=== PATIENT | female | born 1955 | race Caucasian/White ===

== ENCOUNTER → 2016-10-11 | Outpatient (CLI) | payer OTHER ==
[~2016-10-11] MED LIST: /ESOM40CA OR; AMBI10TA PO; AMIT25TA10 PO; BENA25TA4 PO; BUPIVACAINE HCL 0.25% 30 ML VIAL As Ordered ONE; CALCIUM CITRATE PO; CELE10TA PO; CELE20TA OR; FLECTOR1.3 TOP; IBUP800T OR; ISOVUE-M 300 61% 15ML VIAL (Q9967) As Ordered ONE; LIDOCAINE 1% SDV INJ 30 ML VIAL As Ordered ONE; LYRI75CA OR; MELA; MULT1TAB10 PO; MULTIVIT OR; PERCOCET PO; SENO8.6T9 PO; SLEEP AID OTC OR; SOMA350T OR; SOMA350T PO; TRAM37.5 PO; TRAM50TA2 OR; TRAZ50TA OR; TRIAMCINOLONE ACETONIDE SUSP 40 MG/ML VIAL (J3301) As Ordered ONE; TYLE1TAB5 PO; VALI5TAB OR; VIT D 2000 OR; VITA50003 PO; VITA500T OR; XANA1TAB2 OR; [UNRECOGNIZED DRUG - MIXTURE] TOP; citrical PO; diazePAM 5 MG TAB As Ordered ONE; melatonin PO
--- NOTE | 2016-10-11 18:40 | REP ---
This sacral series: Limited study two views: History: Injection of sacral coccygeal ligament bilateral. 10 seconds of fluoroscopy time is reported. Findings: A sequence of two frontal fluoroscopically obtained into procedural spot radiographs of the sacrum to document needle position and contrast injection associated with injection procedure. Signed by Yannick Eller MD 10/11/2016 07:28 P
--- NOTE | 2016-10-19 01:56 | ECWPNPC ---
PATIENT NAME: MARIMAR JARVIS : 1955 GENDER: FEMALE VISIT DATE: 10/11/2016 DISCHARGE DATE: 10/11/16 1634 VISIT LOCKED DATE TIME: PHYSICIAN: TREY QUINTANILLA RESOURCE: TREY QUINTANILLA REASON FOR APPOINTMENT 1. W/C SACRALCOCCYGEAL INJECTION HISTORY OF PRESENT ILLNESS HISTORY OF PRESENT ILLNESS: PAIN THE PATIENT DESCRIBES THE PAIN... FALL RISK SCREENING: SCREENING :NO FALLS IN THE PAST YEAR CURRENT MEDICATIONS TAKING XANAX 1 MG TABLET 1 TABLET ORALLY TWICE A DAY NEEDED, NOTES: 2016-10-102199 TAKING BENADRYL 25 MG CAPSULE 1-2 CAPSULES ORALLY AT NIGHT, NOTES: 2016-09-24 TAKING CELEXA 40 MG TABLET 1 TABLET ORALLY ONCE A DAY, NOTES: 2016-10-11729 TAKING LORATADINE 10 MG TABLET 1 TABLET ORALLY ONCE A DAY, NOTES: 2016-10-11729 NOT-TAKING MULTI COMPLETE CAPSULE ORALLY DAILY NOT-TAKING VITAMIN B COMPLEX CAPSULE ORALLY DAILY NOT-TAKING TYLENOL 500 MG TABLETS 1 TABLET ORALLY NEEDED NOT-TAKING IBUPROFEN 800 MG TABLET 1 TABLET ORALLY NEEDED NOT-TAKING TRAMADOL HCL 50 MG TABLET 1 TABLET NEEDED ORALLY EVERY 6 HRSPRN PAIN MDD=6 NOT-TAKING PERCOCET 10-325 MG TABLET 2 TABLET NEEDED ORALLY TAKE 2 TABS ON ARRIVAL TO CLINIC FOR PROCEDURE MDD=2 NOT-TAKING VALIUM 5 MG TABLET 2 ORALLY 2 TAB 1HR PRE PROC. MDD2 DO NOT DRIVE AFTER TAKING MEDS MEDICATION LIST REVIEWED AND RECONCILED WITH THE PATIENT PAST MEDICAL HISTORY INSOMNIA BILATERAL FOOT PAIN ANXIETY DEPRESSION POST LAMINECTOMY PAIN ALLERGIES NAPROXEN: ORBITAL PRESSURE: ALLERGY SURGICAL HISTORY LAMINECTOMY 07/16 OR C SECTION C SECTION FAMILY HISTORY FATHER: MOTHER: HAD 1 BROTHER WHO IS NOW. HOSPITALIZATION/MAJOR DIAGNOSTIC PROCEDURE SURGERY 07/16 OR REVIEW OF SYSTEMS CONSTITUTIONAL: ANY CHANGE IN YOUR MEDICAL CONDITION? NO . CHILLS NO . FEVER NO . INFECTION: DO YOU HAVE NEW INFECTIONS? NO . DO YOU HAVE HISTORY OF MRSA? NO . MUSCULOSKELETAL: ANY NEW PATTERNS OF PAIN OR NUMBNESS? NO . GASTROENTEROLOGY: ANY NEW CHANGE IN BOWEL CONTROL? NO . GENITOURINARY: ANY NEW CHANGE IN BLADDER CONTROL? NO . IS THERE A CHANCE YOU COULD BE ? NO . HEMATOLOGY/LYMPH: DO YOU TAKE ANY BLOOD THINNERS? (FOR EXAMPLE- COUMADIN, PLAVIX, AGGRENOX, PLATEL, PRADAXA, OR XARELTO) NO . WHEN WAS YOUR LAST DOSE? DATE: TIME: . NEUROLOGY: HAVE YOU FALLEN IN THE PAST 6 MONTHS? NO . ANY NEW EXTREMITY NUMBNESS OR WEAKNESS? NO . CARDIOLOGY: DO YOU HAVE A PACEMAKER OR DEFIBRILLATOR? NO . RESPIRATORY: HAVE YOU BEEN SICK IN THE PAST WEEK? NO . FEVER NO . FLU LIKE SYMPTOMS? NO . COUGH NO . INTEGUMENTARY: DO YOU HAVE ANY RASHES OR OPEN SORES? NO . ALLERGIC/IMMUNO: ARE YOU ALLERGIC TO SHELLFISH OR IV DYE? NO . ANY NEW ALLERGIES? NO . PSYCHIATRIC: DO YOU HAVE THOUGHTS OF HURTING YOURSELF OR SOMEONE ELSE? NO . ARE YOU ABUSED, NEGLECTED, OR IN AN UNSAFE ENVIRONMENT? NO . ENDOCRINOLOGY: ARE YOU DIABETIC? NO . OTHER: DO YOU NEED ANY PRESCRIPTIONS? NO . IF YES, PLEASE LIST: ____ . ANY NEW PROBLEMS WITH YOUR MEDICATIONS? NO . WHEN DID YOU LAST EAT? 10-10-16 . WHEN DID YOU LAST DRINK? NOON . WHAT DID YOU LAST DRINK? WATER . NAME OF PERSON DRIVING YOU HOME? AL . DO YOU HAVE ANY OTHER QUESTIONS OR CONCERNS NO . REVIEWED BY: PROVIDER: . VITAL SIGNS WT 160 LBS, HT 66 IN, BMI 25.82 INDEX, BP 117/59 MM HG, HR 63 /MIN, RR 16 /MIN, TEMP 96.2 F, OXYGEN SAT % 98, NA INITIALS TL 1416, REVIEWED BY: LS. ASSESSMENTS SPINAL ENTHESOPATHY, SACRAL AND SACROCOCCYGEAL REGION - M46.08 (PRIMARY) PROCEDURES PRE PROCEDURE DIAGNOSIS: INFLAMMATION OF THE SACROCOCCYGEAL LIGAMENT .COCCYDYNIA.POSTPROCEDURE DIAGNOSIS:INFLAMMATION OF THE SACROCOCCYGEAL LIGAMENT .COCCYDYNIA.PROCEDURE: INJECTION OF THE RIGHT AND LEFT SACROCOCCYGEAL LIGAMENT. SURGEON: DR. TREY QUINTANILLASAINT [facility]ADANESTHESIA: LOCAL.PREOPERATIVE NOTE: THE PATIENT HAS HISTORY OF LOW BACK PAIN. I EVALUATED THE PATIENT AND REVIEWED THE CHART. WE BOTH AGREE ON INJECTING OVER THE SACROCOCCYGEAL LIGAMENT. THE PATIENT IS AWARE OF THE POTENTIAL COMPLICATIONS WHICH INCLUDE INFECTIONS, VISCERAL PUNCTURE, INCLUDING RECTAL PUNCTURE AMONG OTHERS. I DISCUSSED ALTERNATIVES AND THE PATIENT EXPRESSED THAT SHE WOULD LIKE TO MOVE FORWARD. THE PATIENT DENIES UNEXPLAINABLE, WEIGHT LOSS, FEVER, CHILLS, OR CHANGES IN URINARY OR BOWEL CONTROL. DESCRIPTION OF PROCEDURE: AFTER CONSENT WAS TAKEN, THE PATIENT WAS BROUGHT TO THE PROCEDURE ROOM AND PLACED IN THE PRONE POSITION. THE LUMBOSACRAL AREA WAS CLEANED WITH CHLORAPREP SOLUTION AND DRAPED ASEPTICALLY. THE PROCEDURE WAS DONE UNDER STERILE CONDITIONS. UNDER FLUOROSCOPIC GUIDANCE, THE TARGET WAS SELECTED AT THE RIGHT AND LEFT SACROCOCCYGEAL LIGAMENT. LIDOCAINE WAS USED TO NUMB THE SKIN AND THE SUBCUTANEOUS TISSUE BELOW IT. A 25 NEEDLE WAS ADVANCED UNTIL WE REACHED THE RIGHT AND LEFT SACROCOCCYGEAL LIGAMENT. I DID AP AND LATERAL VIEWS. ISOVUE M DYE 30%, 1/4 ML, WAS INJECTED SHOWING ADEQUATE SPREAD OF THE DYE. THEN A SOLUTION OF 30 ML OF BUPIVACAINE 0.125% WITH KENALOG 30 MG WAS INJECTED OVER THE AFFECTED STRUCTURE. THERE WAS NO EVIDENCE OF BLOOD, PARESTHESIA OR CEREBROSPINAL FLUID. NO EVIDENCE OF VACUUM PHENOMENON OR VISCERAL PUNCTURE. THE PATIENT WAS SENT TO THE RECOVERY ROOM WHERE SHE WAS MOVING HER EXTREMITIES AND DOING WELL. THERE WERE NO COMPLICATIONS DURING THE PROCEDURE. FLUOROSCOPY TIME WAS 10 SECONDSPOSTOPERATIVE NOTE: I DISCUSSED ALTERNATIVES WITH THE PATIENT. I AM LOOKING FOR LONG LASTING PAIN RELIEF WITH THIS INTERVENTION. INSTRUCTIONS WERE GIVEN. QUESTIONS WERE ANSWERED. THE PATIENT REPORTS UNDERSTANDING AND AGREES WITH THE PLAN. THERE WERE NO COMPLICATIONS DURING THE PROCEDURE. DIAGNOSTIC IMAGING [facility] FLUORO GUIDANCE (PAIN)[id number] PROCEDURE CODES 52899 INJ TENDON SHEATH/LIGAMENT 6045F RADXPS IN END [id number] PXD [id number] FLUOROGUIDE FOR SPINE INJECT FOLLOW UP 3 WEEKS ELECTRONICALLY SIGNED BY TREY QUINTANILLA MD ON 10/18/2016 AT 03:01 PM EST DISCLAIMER : THIS IS A VISIT SUMMARY EXTRACTED FROM THE [employer] CHART. IT IS NOT A COPY OF THE [employer] PROGRESS NOTE. MIKE
== END ==
LOC: M PAIN 14:00
PROVIDERS: ATTEND Anesthesiology
DX: M46.08 Spinal enthesopathy, sacral and sacrococcygeal region (principal); F41.9 Anxiety disorder, unspecified; F32.9 Major depressive disorder, single episode, unspecified; M96.1 Postlaminectomy syndrome, not elsewhere classified; G47.00 Insomnia, unspecified; Z88.8 Allergy status to other drugs, medicaments and biological substances; Z79.899 Other long term (current) drug therapy
CPT/HCPCS: 20550; 77002; J3301; Q9967

== ENCOUNTER → 2016-11-01 | Outpatient (CLI) | payer OTHER ==
[~2016-11-01] MED LIST changes: -BUPIVACAINE HCL 0.25% 30 ML VIAL As Ordered ONE; -ISOVUE-M 300 61% 15ML VIAL (Q9967) As Ordered ONE; -LIDOCAINE 1% SDV INJ 30 ML VIAL As Ordered ONE; -TRIAMCINOLONE ACETONIDE SUSP 40 MG/ML VIAL (J3301) As Ordered ONE; -diazePAM 5 MG TAB As Ordered ONE
--- NOTE | 2016-11-11 00:21 | ECWPNPC ---
PATIENT NAME: MARIMAR JARVIS : 1955 GENDER: FEMALE VISIT DATE: 11/01/2016 DISCHARGE DATE: 11/01/16 1239 VISIT LOCKED DATE TIME: PHYSICIAN: TREY QUINTANILLA RESOURCE: TREY QUINTANILLA REASON FOR APPOINTMENT 1. LOW BACK PAIN W/C HISTORY OF PRESENT ILLNESS HISTORY OF PRESENT ILLNESS: PAIN THE PATIENT DESCRIBES THE PAIN... 61 YEAR OLD FEMALE PATIENT WITH HISTORY OF CHRONIC LOW BACK PAIN. PATIENT DESCRIBES THE PAIN ACHING, STABBING, AND SORE WITH A PAIN SCORE OF 3-4/10. 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 JARVIS. PATIENT RECEIVED A BACK SURGERY 4 YEARS AFTER THE ACCIDENT AND STATES THAT SHE STILL HAS A SIGNIFICANT AMOUNT OF PAIN IN HER BACK. PATIENT STATES THAT SHE DOES NOT WANT TO USE NARCOTICS SHE DOES NOT LIKE THE SIDE EFFECTS OF THE MEDICATIONS. MRS. JARVIS STATES THAT ANY ACTIVITY INCREASES THE PAIN IN HER LOWER BACK AND AT THIS TIME REST IS THE ONLY THING THAT AIDS IN PAIN RELIEF. PATIENT DENIES UNEXPLAINABLE WEIGHT LOSS, FEVER, CHILLS, NEW CHANGES ON HER URINARY OR BOWEL CONTROL. FALL RISK SCREENING: SCREENING :NO FALLS IN THE PAST YEAR CURRENT MEDICATIONS TAKING XANAX 1 MG TABLET 1 TABLET ORALLY TWICE A DAY NEEDED, NOTES: 2016-10-10 2200 TAKING CELEXA 40 MG TABLET 1 TABLET ORALLY TWICE DAILY, NOTES: 2016-10-11729 TAKING LORATADINE 10 MG TABLET 1 TABLET ORALLY ONCE A DAY, NOTES: 2016-10-11729 NOT-TAKING BENADRYL 25 MG CAPSULE 1-2 CAPSULES ORALLY AT NIGHT, NOTES: 2016-09-24 NOT-TAKING MULTI COMPLETE CAPSULE ORALLY DAILY NOT-TAKING VITAMIN B COMPLEX CAPSULE ORALLY DAILY NOT-TAKING TYLENOL 500 MG TABLETS 1 TABLET ORALLY NEEDED NOT-TAKING IBUPROFEN 800 MG TABLET 1 TABLET ORALLY NEEDED NOT-TAKING TRAMADOL HCL 50 MG TABLET 1 TABLET NEEDED ORALLY EVERY 6 HRSPRN PAIN MDD=6 NOT-TAKING PERCOCET 10-325 MG TABLET 2 TABLET NEEDED ORALLY TAKE 2 TABS ON ARRIVAL TO CLINIC FOR PROCEDURE MDD=2 NOT-TAKING VALIUM 5 MG TABLET 2 ORALLY 2 TAB 1HR PRE PROC. MDD2 DO NOT DRIVE AFTER TAKING MEDS MEDICATION LIST REVIEWED AND RECONCILED WITH THE PATIENT PAST MEDICAL HISTORY INSOMNIA BILATERAL FOOT PAIN ANXIETY DEPRESSION POST LAMINECTOMY PAIN ALLERGIES NAPROXEN: ORBITAL PRESSURE: ALLERGY SURGICAL HISTORY LAMINECTOMY 07/16 OR C SECTION C SECTION FAMILY HISTORY NO FAMILY HISTORY DOCUMENTED. SOCIAL HISTORY GENERAL: TOBACCO USE ARE YOU A:NONSMOKER LEARNING BARRIERS / SPECIAL NEEDS ORIENTED TO PLAN OF CARE: PATIENT, PAIN MANAGEMENT PATIENT, ORIENTED TO PLAN OF CARE: PATIENT, PAIN MANAGEMENT PATIENT. NEW PATIENT PAIN DIARY TODAY'S VISITNOTES FROM 0-10, WHAT LEVEL IS YOUR PAIN TODAY?0 PAIN CLINIC PFS, CLERGY, PUBLIC HEALTH REFERRALS PFS REFERRAL NEEDED?NO CLERGY REFERRAL NEEDED?NO PUBLIC HEALTH REFERRAL NEEDED?NO WAS THE PROVIDER NOTIFIED OF ANY PERTINENT INFO?NO PFS REFERRAL NEEDED?NO CLERGY REFERRAL NEEDED?NO PUBLIC HEALTH REFERRAL NEEDED?NO WAS THE PROVIDER NOTIFIED OF ANY PERTINENT INFO?NO HOSPITALIZATION/MAJOR DIAGNOSTIC PROCEDURE SURGERY 07/16 OR REVIEW OF SYSTEMS CONSTITUTIONAL: ANY CHANGE IN YOUR MEDICAL CONDITION? NO . CHILLS NO . FEVER NO . INFECTION: DO YOU HAVE NEW INFECTIONS? NO . DO YOU HAVE HISTORY OF MRSA? NO . MUSCULOSKELETAL: ANY NEW PATTERNS OF PAIN OR NUMBNESS? NO . GASTROENTEROLOGY: ANY NEW CHANGE IN BOWEL CONTROL? NO . GENITOURINARY: ANY NEW CHANGE IN BLADDER CONTROL? NO . IS THERE A CHANCE YOU COULD BE ? NO . HEMATOLOGY/LYMPH: DO YOU TAKE ANY BLOOD THINNERS? (FOR EXAMPLE- COUMADIN, PLAVIX, AGGRENOX, PLATEL, PRADAXA, OR XARELTO) NO . WHEN WAS YOUR LAST DOSE? DATE: TIME: . NEUROLOGY: HAVE YOU FALLEN IN THE PAST 6 MONTHS? NO . ANY NEW EXTREMITY NUMBNESS OR WEAKNESS? NO . CARDIOLOGY: DO YOU HAVE A PACEMAKER OR DEFIBRILLATOR? NO . RESPIRATORY: HAVE YOU BEEN SICK IN THE PAST WEEK? NO . FEVER NO . FLU LIKE SYMPTOMS? NO . COUGH NO . INTEGUMENTARY: DO YOU HAVE ANY RASHES OR OPEN SORES? NO . ALLERGIC/IMMUNO: ARE YOU ALLERGIC TO SHELLFISH OR IV DYE? NO . ANY NEW ALLERGIES? NO . PSYCHIATRIC: DO YOU HAVE THOUGHTS OF HURTING YOURSELF OR SOMEONE ELSE? NO . ARE YOU ABUSED, NEGLECTED, OR IN AN UNSAFE ENVIRONMENT? NO . ENDOCRINOLOGY: ARE YOU DIABETIC? NO . OTHER: DO YOU NEED ANY PRESCRIPTIONS? YES . IF YES, PLEASE LIST: ____A NEW PAIN MEDICATION . ANY NEW PROBLEMS WITH YOUR MEDICATIONS? NO . WHEN DID YOU LAST EAT? ____ . WHEN DID YOU LAST DRINK? ____ . WHAT DID YOU LAST DRINK? ____ . NAME OF PERSON DRIVING YOU HOME? ____ . DO YOU HAVE ANY OTHER QUESTIONS OR CONCERNS NO . REVIEWED BY: PROVIDER: TREY QUINTANILLA MD . VITAL SIGNS WT 156.0 LBS, HT 66 IN, BMI 25.18 INDEX, BP 110/63 MM HG, HR 71 /MIN, RR 16 /MIN, TEMP 97.9 F, OXYGEN SAT % 98, NA INITIALS TL 1114, REVIEWED BY: VD. EXAMINATION : PATIENT IS ALERT O X 3 AND COOPERATIVE. TENDERNESS IN THE LOWER BACK AND PARASPINAL MUSCLE GROUP. LEFT LEG IS WEAKER THEN THE RIGHT AT EXTENSION AND ESPECIALLY FLEXION. PATIENT ABLE TO FLEX HER BACK 45 DEGREE AND 5 DEGREE WITH DIFFICULTY. MRI DONE ON 04/21/15 SHOWS DISC BULGES AT L1-L2, L2-L3, AND L4-L5, DISC PROTRUSION AT L5-S1 WITH FACET HYPERTROPHY. 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 JARVIS' PAIN MANAGEMENT CASE. AT THIS TIME THE PATIENT WILL BEGIN TO USE GABAPENTIN TO SEE IF IT WILL AID WITH THE NEUROPATHIC PAIN. PATIENT IS AWARE TO START AND STOP THE MEDICATION SLOWLY AND IF SHE HAS ANY SIDE EFFECTS TO DISCONTINUE. AT THIS TIME THE PATIENT STATES THAT SHE IS DOING SIGNIFICANTLY BETTER, SHE REPORTS HAVING INCREASED MOBILITY AND FUNCTIONALITY WITH A DECREASE IN PAIN SINCE THE SACROILIAC JOINT BLOCK. AT THIS TIME PATIENT STATES THAT HER PAIN IS VERY MANAGEABLE AND DOES NOT NEED INTERVENTIONS AT THIS TIME. PATIENT WILL RETURN TO THE CLINIC IN 3 WEEKS TO DISCUSS HER PAIN LEVEL AND TO DISCUSS OF THE MEDICATION WORKED FOR THE PATIENT. INSTRUCTIONS WERE GIVEN, QUESTIONS WERE ANSWERED, PATIENT REPORTS UNDERSTANDING AND AGREES WITH THE PLAN. I, ARLEY TAVARES, DOCUMENTED THE ABOVE INFORMATION ACTING A SCRIBE FOR DR. QUINTANILLA. I HAVE REVIEWED THE ABOVE DOCUMENT, WRITTEN BY ARLEY ODOM AND I VERIFY THAT IT IS ACCURATE. OTHERS START GABAPENTIN CAPSULE, 300 MG, 1 CAPSULE, ORALLY, BEFORE BEDTIME FOR PAIN, 30 DAY(S), 30, REFILLS 1 PROCEDURES PN WORKMANS' COMP OPINION IN YOUR OPINION, WAS THE INCIDENT THAT THE PATIENT DESCRIBED THE COMPETENT MEDICAL CAUSE OF THIS INJURY/ILLNESS? YES ARE THE PATIENT'S COMPLAINTS CONSISTENT WITH HIS/HER HISTORY OF THE INJURY/ILLNESS? YES IS THE PATIENT'S HISTORY OF THE INJURY/ILLNESS CONSISTENT WITH YOUR OBJECTIVE FINDING? YES WHAT IS THE PERCENTAGE OF TEMPORARY IMPAIRMENT? TOTAL = 100% IS THE PATIENT WORKING? NO DOCTOR ON SITE: TREY SIERRA MD PROCEDURE CODES FA211 ESTABILISHED PATIENT [facility] FACILITY CHARGE G8427 DOC MEDS VERIFIED W/PT OR RE G8730 PAIN ASSESS POS TOOL F/U PLAN DOC FOLLOW UP 3 WEEKS ELECTRONICALLY SIGNED BY TREY QUINTANILLA MD ON 11/10/2016 AT 08:02 PM EST DISCLAIMER : THIS IS A VISIT SUMMARY EXTRACTED FROM THE [employer] CHART. IT IS NOT A COPY OF THE [employer] PROGRESS NOTE. MIKE
== END ==
LOC: M PAIN 11:00
PROVIDERS: ATTEND Anesthesiology
DX: Z09 Encounter for follow-up examination after completed treatment for conditions other than malignant neoplasm (principal); G89.29 Other chronic pain; M96.1 Postlaminectomy syndrome, not elsewhere classified; M46.1 Sacroiliitis, not elsewhere classified; M47.816 Spondylosis without myelopathy or radiculopathy, lumbar region; M47.817 Spondylosis without myelopathy or radiculopathy, lumbosacral region; F41.9 Anxiety disorder, unspecified; F32.9 Major depressive disorder, single episode, unspecified; G47.00 Insomnia, unspecified; Z88.8 Allergy status to other drugs, medicaments and biological substances; Z79.899 Other long term (current) drug therapy

== ENCOUNTER → 2017-01-15 | Outpatient (CLI) | payer OTHER ==
--- NOTE | 2017-01-28 01:18 | ECWPNPC ---
PATIENT NAME: MARIMAR JARVIS : 1955 GENDER: FEMALE VISIT DATE: 01/15/2017 DISCHARGE DATE: 01/15/17 1555 VISIT LOCKED DATE TIME: PHYSICIAN: TREY QUINTANILLA RESOURCE: TREY QUINTANILLA REASON FOR APPOINTMENT 1. BACK PAIN HISTORY OF PRESENT ILLNESS HISTORY OF PRESENT ILLNESS: PAIN THE PATIENT DESCRIBES THE PAIN... 61 YEAR OLD FEMALE PATIENT WITH HISTORY OF CHRONIC LOW BACK PAIN. PATIENT DESCRIBES THE PAIN ACHING, SHARP, AND HAVING IT ALL THE TIME WITH A PAIN SCORE OF 7-8/10. 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 JARVIS. PATIENT RECEIVED A BACK SURGERY 4 YEARS AFTER THE ACCIDENT AND STATES THAT SHE STILL HAS A SIGNIFICANT AMOUNT OF PAIN IN HER BACK. PATIENT STATES THAT SHE DOES NOT WANT TO USE NARCOTICS SHE DOES NOT LIKE THE SIDE EFFECTS OF THE MEDICATIONS. CURRENTLY PATIENT IS USING GABAPENTIN TO AID IN PAIN RELIEF WHICH SHE STATES HELPS WITH THE NEUROPATHIC PAIN. MRS. JARVIS STATES THAT ANY ACTIVITY INCREASES THE PAIN IN HER LOWER BACK AND AT THIS TIME REST IS THE ONLY THING THAT AIDS IN PAIN RELIEF. PATIENT DENIES UNEXPLAINABLE WEIGHT LOSS, FEVER, CHILLS, NEW CHANGES ON HER URINARY OR BOWEL CONTROL. FALL RISK SCREENING: SCREENING :NO FALLS IN THE PAST YEAR CURRENT MEDICATIONS TAKING CELEXA 40 MG TABLET 1 TABLET ORALLY TWICE DAILY, NOTES: 2016-10-11729 TAKING LORATADINE 10 MG TABLET 1 TABLET ORALLY ONCE A DAY, NOTES: 2016-10-11729 TAKING GABAPENTIN 300 MG CAPSULE 1 CAPSULE ORALLY BEFORE BEDTIME FOR PAIN NOT-TAKING XANAX 1 MG TABLET 1 TABLET ORALLY TWICE A DAY NEEDED, NOTES: 2016-10-102199 NOT-TAKING BENADRYL 25 MG CAPSULE 1-2 CAPSULES ORALLY AT NIGHT, NOTES: 2016-09-24 NOT-TAKING MULTI COMPLETE CAPSULE ORALLY DAILY NOT-TAKING VITAMIN B COMPLEX CAPSULE ORALLY DAILY NOT-TAKING TYLENOL 500 MG TABLETS 1 TABLET ORALLY NEEDED NOT-TAKING IBUPROFEN 800 MG TABLET 1 TABLET ORALLY NEEDED NOT-TAKING TRAMADOL HCL 50 MG TABLET 1 TABLET NEEDED ORALLY EVERY 6 HRSPRN PAIN MDD=6 NOT-TAKING PERCOCET 10-325 MG TABLET 2 TABLET NEEDED ORALLY TAKE 2 TABS ON ARRIVAL TO CLINIC FOR PROCEDURE MDD=2 NOT-TAKING VALIUM 5 MG TABLET 2 ORALLY 2 TAB 1HR PRE PROC. MDD2 DO NOT DRIVE AFTER TAKING MEDS MEDICATION LIST REVIEWED AND RECONCILED WITH THE PATIENT PAST MEDICAL HISTORY INSOMNIA BILATERAL FOOT PAIN ANXIETY DEPRESSION POST LAMINECTOMY PAIN ALLERGIES NAPROXEN: ORBITAL PRESSURE: ALLERGY SURGICAL HISTORY LAMINECTOMY 07/16 OR C SECTION C SECTION FAMILY HISTORY NO FAMILY HISTORY DOCUMENTED. SOCIAL HISTORY GENERAL: PAIN CLINIC PFS, CLERGY, PUBLIC HEALTH REFERRALS CLERGY REFERRAL NEEDED?NO WAS THE PROVIDER NOTIFIED OF ANY PERTINENT INFO?NO PFS REFERRAL NEEDED?NO PUBLIC HEALTH REFERRAL NEEDED?NO PATIENT: ____. HOSPITALIZATION/MAJOR DIAGNOSTIC PROCEDURE SURGERY 07/16 OR REVIEW OF SYSTEMS CONSTITUTIONAL: ANY CHANGE IN YOUR MEDICAL CONDITION? NO . CHILLS NO . FEVER NO . INFECTION: DO YOU HAVE NEW INFECTIONS? NO . DO YOU HAVE HISTORY OF MRSA? NO . MUSCULOSKELETAL: ANY NEW PATTERNS OF PAIN OR NUMBNESS? YES PT REPORTS HER PAIN HAS INCREASED. SHE HAD BEEN SMOKING MARIJUANA FOR PAIN CONTROL WHICH PROVIDED HER SOME RELIEF, BUT STATES SHE CAN NO LONGER AFFORD IT AND HAS STOPPED USING IT. . GASTROENTEROLOGY: ANY NEW CHANGE IN BOWEL CONTROL? NO . GENITOURINARY: ANY NEW CHANGE IN BLADDER CONTROL? NO . IS THERE A CHANCE YOU COULD BE ? NO . HEMATOLOGY/LYMPH: DO YOU TAKE ANY BLOOD THINNERS? (FOR EXAMPLE- COUMADIN, PLAVIX, AGGRENOX, PLATEL, PRADAXA, OR XARELTO) NO . WHEN WAS YOUR LAST DOSE? DATE: TIME: . NEUROLOGY: HAVE YOU FALLEN IN THE PAST 6 MONTHS? NO . ANY NEW EXTREMITY NUMBNESS OR WEAKNESS? NO . CARDIOLOGY: DO YOU HAVE A PACEMAKER OR DEFIBRILLATOR? NO . RESPIRATORY: HAVE YOU BEEN SICK IN THE PAST WEEK? NO . FEVER NO . FLU LIKE SYMPTOMS? NO . COUGH NO . INTEGUMENTARY: DO YOU HAVE ANY RASHES OR OPEN SORES? NO . ALLERGIC/IMMUNO: ARE YOU ALLERGIC TO SHELLFISH OR IV DYE? NO . ANY NEW ALLERGIES? NO . PSYCHIATRIC: DO YOU HAVE THOUGHTS OF HURTING YOURSELF OR SOMEONE ELSE? NO . ARE YOU ABUSED, NEGLECTED, OR IN AN UNSAFE ENVIRONMENT? NO . ENDOCRINOLOGY: ARE YOU DIABETIC? NO . OTHER: DO YOU NEED ANY PRESCRIPTIONS? YES GABAPENTIN . IF YES, PLEASE LIST: ____ . ANY NEW PROBLEMS WITH YOUR MEDICATIONS? NO . WHEN DID YOU LAST EAT? ____ . WHEN DID YOU LAST DRINK? ____ . WHAT DID YOU LAST DRINK? ____ . NAME OF PERSON DRIVING YOU HOME? ____ . DO YOU HAVE ANY OTHER QUESTIONS OR CONCERNS NO . REVIEWED BY: PROVIDER: TREY QUINTANILLA MD . VITAL SIGNS WT 155 LBS, HT 66 IN, BMI 25.01 INDEX, BP 124/76 MM HG, HR 58 /MIN, RR 16 /MIN, TEMP 97.9 F, OXYGEN SAT % 96%, NA INITIALS SC15:20. EXAMINATION : PATIENT IS ALERT O X 3 AND COOPERATIVE. TENDERNESS IN THE LOWER BACK AND PARASPINAL MUSCLE GROUP. LEFT LEG IS WEAKER THEN THE RIGHT AT EXTENSION AND ESPECIALLY FLEXION. FABERE TEST POSITIVE FOR PAIN IN LEFT AND RIGHT SACROILIAC JOINT AREAS. PATIENT ABLE TO FLEX HER BACK 45 DEGREE AND 5 DEGREE WITH DIFFICULTY. MRI DONE ON 04/21/15 SHOWS DISC BULGES AT L1-L2, L2-L3, AND L4-L5, DISC PROTRUSION AT L5-S1 WITH FACET HYPERTROPHY. 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 JARVIS PAIN MANAGEMENT CASE. AT THIS TIME THE PATIENT WILL CONTINUE USING GABAPENTIN FOR THE NEUROPATHIC PAIN SHE HAS DOWN HER LEGS. PATIENT WILL ALSO RECEIVED KETOROLAC UNTIL SHE ABLE TO SEE PRIMARY TO DISCUSS MEDICATION MANAGEMENT. AFTER VIEWING THE PATIENT AND FINDING WHERE HER PAIN IS LOCATED I WOULD LIKE TO PROCEED WITH A SACROILIAC JOINT BLOCK. WE DISCUSSED THE RISKS, BENEFITS, AND ALTERATIVE'S OF THE INJECTION AND THE PATIENT WOULD LIKE TO PROCEED AT THIS TIME. INSTRUCTIONS WERE GIVEN, QUESTIONS WERE ANSWERED, PATIENT REPORTS UNDERSTANDING AND AGREES WITH THE PLAN. I, ARLEY TAVARES, DOCUMENTED THE ABOVE INFORMATION ACTING A SCRIBE FOR DR. QUINTANILLA. I HAVE REVIEWED THE ABOVE DOCUMENT, WRITTEN BY ARLEY ODOM AND I VERIFY THAT IT IS ACCURATE. OTHERS REFILL GABAPENTIN CAPSULE, 300 MG, 1 CAPSULE, ORALLY, BEFORE BEDTIME FOR PAIN, 30 DAY(S), 30, REFILLS 2 START KETOROLAC TROMETHAMINE TABLET, 10 MG, 1 TABLET WITH FOOD OR MILK NEEDED, ORALLY WITH FOOD, EVERY 6 HRS NEEDEDFOR PAIN MDD3, 5 DAY(S), 15, REFILLS 0 PROCEDURES PN WORKMANS' COMP OPINION IN YOUR OPINION, WAS THE INCIDENT THAT THE PATIENT DESCRIBED THE COMPETENT MEDICAL CAUSE OF THIS INJURY/ILLNESS? YES ARE THE PATIENT'S COMPLAINTS CONSISTENT WITH HIS/HER HISTORY OF THE INJURY/ILLNESS? YES IS THE PATIENT'S HISTORY OF THE INJURY/ILLNESS CONSISTENT WITH YOUR OBJECTIVE FINDING? YES WHAT IS THE PERCENTAGE OF TEMPORARY IMPAIRMENT? TOTAL = 100% IS THE PATIENT WORKING? YES DOCTOR ON SITE: TREY SIERRA MD PREVENTIVE MEDICINE PAIN CLINIC TEACHING: MEDICATIONS KETOROLAC PRINTED HANDOUT GIVEN TO PT. PROCEDURE CODES FA211 ESTABILISHED PATIENT [facility] FACILITY CHARGE G8427 DOC MEDS VERIFIED W/PT OR RE G8730 PAIN ASSESS POS TOOL F/U PLAN DOC DISPOSITION & COMMUNICATION FOLLOW UP 3 WEEKS ELECTRONICALLY SIGNED BY TREY QUINTANILLA MD ON 01/27/2017 AT 08:29 PM EDT DISCLAIMER : THIS IS A VISIT SUMMARY EXTRACTED FROM THE [employer] CHART. IT IS NOT A COPY OF THE [employer] PROGRESS NOTE. MIKE
== END ==
LOC: M PAIN 15:00
PROVIDERS: ATTEND Anesthesiology
DX: M54.5 Low back pain (principal); G89.29 Other chronic pain; M47.816 Spondylosis without myelopathy or radiculopathy, lumbar region; M47.817 Spondylosis without myelopathy or radiculopathy, lumbosacral region; M96.1 Postlaminectomy syndrome, not elsewhere classified; M46.1 Sacroiliitis, not elsewhere classified; Z79.899 Other long term (current) drug therapy; Z88.6 Allergy status to analgesic agent; F41.9 Anxiety disorder, unspecified; F32.9 Major depressive disorder, single episode, unspecified

== ENCOUNTER → 2017-01-20 | Outpatient (CLI) | payer OTHER | LOC: M PAIN 15:40 | PROVIDERS: ATTEND Anesthesiology | DX: G89.29 Other chronic pain (principal); Z53.29 Procedure and treatment not carried out because of patient's decision for other reasons ==

== ENCOUNTER → 2017-02-25 | Outpatient (CLI) | payer OTHER ==
[~2017-02-25] MED LIST changes: +BUPIVACAINE HCL 0.25% 30 ML VIAL As Ordered ONE; +ISOVUE-M 300 61% 15ML VIAL (Q9967) As Ordered ONE; +LIDOCAINE 1% SDV INJ 30 ML VIAL As Ordered ONE; +MIDAZOLAM INJ 2 MG/2 ML VIAL (J2250) As Ordered ONE; +TRIAMCINOLONE ACETONIDE SUSP 40 MG/ML VIAL (J3301) As Ordered ONE; +fentaNYL 100 MCG/2 ML INJECTION (J3010) As Ordered ONE
--- NOTE | 2017-02-25 15:10 | REP ---
Partial SI joint series: Four views. History: Injection procedure for pain. 22 seconds of fluoroscopy time is reported. Findings: A sequence of four fluoroscopically obtained last image hold spot radiographs of the left SI joint document needle positions and contrast injections associated with SI joint injection procedure. Signed by Yannick Eller MD 02/25/2017 05:08 P
--- NOTE | 2017-03-09 23:47 | ECWPNPC ---
PATIENT NAME: MARIMAR JARVIS : 1955 GENDER: FEMALE VISIT DATE: 02/25/2017 DISCHARGE DATE: 02/25/17 1434 VISIT LOCKED DATE TIME: PHYSICIAN: TREY QUINTANILLA RESOURCE: TREY QUINTANILLA REASON FOR APPOINTMENT 1. SIJ HISTORY OF PRESENT ILLNESS HISTORY OF PRESENT ILLNESS: PAIN THE PATIENT DESCRIBES THE PAIN... FALL RISK SCREENING: SCREENING :NO FALLS IN THE PAST YEAR CURRENT MEDICATIONS TAKING GABAPENTIN 300 MG CAPSULE 1 CAPSULE ORALLY BEFORE BEDTIME FOR PAIN, NOTES: 02/23 TAKING CELEXA 40 MG TABLET 1 TABLET ORALLY TWICE DAILY, NOTES: 02/25 7AM TAKING LORATADINE 10 MG TABLET 1 TABLET ORALLY ONCE A DAY, NOTES: 02/25 7AM NOT-TAKING KETOROLAC TROMETHAMINE 10 MG TABLET 1 TABLET WITH FOOD OR MILK NEEDED ORALLY WITH FOOD EVERY 6 HRS NEEDEDFOR PAIN MDD3 NOT-TAKING XANAX 1 MG TABLET 1 TABLET ORALLY TWICE A DAY NEEDED, NOTES: 2016-10-10 2200 NOT-TAKING BENADRYL 25 MG CAPSULE 1-2 CAPSULES ORALLY AT NIGHT, NOTES: 2016-09-24 NOT-TAKING MULTI COMPLETE CAPSULE ORALLY DAILY NOT-TAKING VITAMIN B COMPLEX CAPSULE ORALLY DAILY NOT-TAKING TYLENOL 500 MG TABLETS 1 TABLET ORALLY NEEDED NOT-TAKING IBUPROFEN 800 MG TABLET 1 TABLET ORALLY NEEDED NOT-TAKING TRAMADOL HCL 50 MG TABLET 1 TABLET NEEDED ORALLY EVERY 6 HRSPRN PAIN MDD=6 NOT-TAKING PERCOCET 10-325 MG TABLET 2 TABLET NEEDED ORALLY TAKE 2 TABS ON ARRIVAL TO CLINIC FOR PROCEDURE MDD=2 NOT-TAKING VALIUM 5 MG TABLET 2 ORALLY 2 TAB 1HR PRE PROC. MDD2 DO NOT DRIVE AFTER TAKING MEDS MEDICATION LIST REVIEWED AND RECONCILED WITH THE PATIENT PAST MEDICAL HISTORY INSOMNIA BILATERAL FOOT PAIN ANXIETY DEPRESSION POST LAMINECTOMY PAIN ALLERGIES NAPROXEN: ORBITAL PRESSURE: ALLERGY REVIEW OF SYSTEMS CONSTITUTIONAL: ANY CHANGE IN YOUR MEDICAL CONDITION? NO . CHILLS NO . FEVER NO . INFECTION: DO YOU HAVE NEW INFECTIONS? NO . DO YOU HAVE HISTORY OF MRSA? NO . MUSCULOSKELETAL: ANY NEW PATTERNS OF PAIN OR NUMBNESS? NO . GASTROENTEROLOGY: ANY NEW CHANGE IN BOWEL CONTROL? NO . GENITOURINARY: ANY NEW CHANGE IN BLADDER CONTROL? NO . IS THERE A CHANCE YOU COULD BE ? NO . HEMATOLOGY/LYMPH: DO YOU TAKE ANY BLOOD THINNERS? (FOR EXAMPLE- COUMADIN, PLAVIX, AGGRENOX, PLATEL, PRADAXA, OR XARELTO) NO . WHEN WAS YOUR LAST DOSE? DATE: TIME: . NEUROLOGY: HAVE YOU FALLEN IN THE PAST 6 MONTHS? YES, PT STATES THAT SHE WAS WALKING AND TURNED AND FELL WHILE AT HOME. NO INJURY FROM FALL, NO REPORT TO ED. . ANY NEW EXTREMITY NUMBNESS OR WEAKNESS? NO . CARDIOLOGY: DO YOU HAVE A PACEMAKER OR DEFIBRILLATOR? NO . RESPIRATORY: HAVE YOU BEEN SICK IN THE PAST WEEK? NO . FEVER NO . FLU LIKE SYMPTOMS? NO . COUGH NO . INTEGUMENTARY: DO YOU HAVE ANY RASHES OR OPEN SORES? NO . ALLERGIC/IMMUNO: ARE YOU ALLERGIC TO SHELLFISH OR IV DYE? NO . ANY NEW ALLERGIES? NO . PSYCHIATRIC: DO YOU HAVE THOUGHTS OF HURTING YOURSELF OR SOMEONE ELSE? NO . ARE YOU ABUSED, NEGLECTED, OR IN AN UNSAFE ENVIRONMENT? NO . ENDOCRINOLOGY: ARE YOU DIABETIC? NO . OTHER: DO YOU NEED ANY PRESCRIPTIONS? NO . IF YES, PLEASE LIST: ____ . ANY NEW PROBLEMS WITH YOUR MEDICATIONS? NO . WHEN DID YOU LAST EAT? 02/24 . WHEN DID YOU LAST DRINK? 02/25 AM . WHAT DID YOU LAST DRINK? WATER . NAME OF PERSON DRIVING YOU HOME? FERNANDO . DO YOU HAVE ANY OTHER QUESTIONS OR CONCERNS NO . REVIEWED BY: PROVIDER: . VITAL SIGNS WT 159.8 LBS, HT 66 IN, BMI 25.79 INDEX, BP 120/61 MM HG, HR 65 /MIN, RR 16 /MIN, TEMP 98.1 F, OXYGEN SAT % 94%, SAFE IN ENV? (Y/N) Y, NA INITIALS TL 1101, REVIEWED BY: DS. ASSESSMENTS SACROILIITIS, NOT ELSEWHERE CLASSIFIED - M46.1 (PRIMARY) TREATMENT OTHERS REFILL GABAPENTIN CAPSULE, 300 MG, 1 CAPSULE, ORALLY, BEFORE BEDTIME FOR PAIN, 30 DAY(S), 30, REFILLS 2, NOTES: 02/23 PROCEDURES PN SI PRE PROCEDURE DIAGNOSIS SACROILIITIS, SACROILIAC JOINT DYSFUNCTION POST PROCEDURE DIAGNOSIS SACROILIITIS, SACROILIAC JOINT DYSFUNCTION PROCEDURE LEFT SACROILIAC JOINT BLOCK SURGEON DR. TREY QUINTANILLA [employer]OR[employer] COMPLEX ATTENDANT NONE ANESTHESIA LOCAL WITH IV SEDATION PRE PROCEDURE NOTE PATIENT WITH HISTORY OF CHRONIC LOW BACK PAIN. I EVALUATED THE PATIENT AND REVIEWED THE CHART. I WENT OVER THE RISKS, ALTERNATIVES, AND BENEFITS ASSOCIATED WITH THIS PROCEDURE. PATIENT WOULD LIKE TO PROCEED WITH IV SEDATION DUE TO PAIN, DISCOMFORT, AND ANXIETY ASSOCIATED WITH THE PROCEDURE. THE PATIENT WOULD LIKE TO PROCEED AND GAVE CONSENT TO PERFORM THE PROCEDURE. THE PATIENT DENIES UNEXPLAINABLE WEIGHT LOSS, FEVER, CHILLS, OR NEW CHANGES IN URINARY OR BOWEL CONTROL DESCRIPTION OF PROCEDURE THE PATIENT WAS BROUGHT TO THE PROCEDURE ROOM AND PLACED IN THE PRONE POSITION. THE LUMBOSACRAL AREA WAS CLEANED WITH CHLORAPREP SOLUTION AND DRAPED ASEPTICALLY. THE PROCEDURE WAS DONE UNDER STERILE CONDITIONS. I CHECKED LATERALITY AND THE LEVEL WHERE THE PROCEDURE WAS GOING TO BE PERFORMED WITH THE PATIENT AND THE SUPPORTING STAFF AT THE MOMENT OF THE TIME OUT IN THE PROCEDURE ROOM. UNDER FLUOROSCOPIC GUIDANCE, TARGET POINT WAS SELECTED AT THE LOWER BORDER OF THE LEFT SACROILIAC JOINT. TARGET POINT WAS SELECTED AFTER MEDIAL ROTATION AND TILT OF THE MAGNIFIER OF THE C-ARM. LIDOCAINE WAS USED TO NUMB THE SKIN AND SUBCUTANEOUS TISSUE BELOW IT. A SPINAL NEEDLE, 22-GAUGE, WAS ADVANCED UNDER FLUOROSCOPIC GUIDANCE AND FOLLOWING PATIENT FEEDBACK UNTIL THE TARGET AREA WAS TOUCHED. THE POSITION OF THE NEEDLE WAS VERIFIED WITH AP AND LATERAL VIEWS. AFTER PROPER POSITION OF THE NEEDLE WAS ACHIEVED, ISOVUE M DYE 30%, 0.25 ML, WAS INJECTED SHOWING SPREAD OF THE DYE. THEN, A SOLUTION OF 20 MG OF KENALOG WAS INJECTED IN RIGHT JOINT WITH 3 ML OF BUPIVACAINE 0.125%. PATIENT RECEIVED FENTANYL 200 MCG AND VERSED 4MG IV DIVIDED DOSES. THERE WAS NO EVIDENCE OF BLOOD, PARESTHESIA OR CEREBROSPINAL FLUID DURING THE PROCEDURE. THE PATIENT WAS SENT TO THE RECOVERY ROOM. THE PATIENT WAS MOVING THE EXTREMITIES AND DOING WELL. THERE WAS NO COMPLICATION DURING THE PROCEDURE. FLUOROSCOPY TIME WAS 22 SECONDS. FACE TO FACE TIME WAS 15 MINUTES POST PROCEDURE NOTE THE PATIENT WILL BE SEEN IN A FOLLOW UP IN THE NEXT FEW WEEKS. INSTRUCTIONS WERE GIVEN, QUESTIONS WERE ANSWERED, AND THE PATIENT EXPRESSED UNDERSTANDING AND AGREED WITH THE PLAN. I, ARLEY TAVARES, DOCUMENTED THE ABOVE INFORMATION ACTING A SCRIBE FOR DR. QUINTANILLA. I HAVE REVIEWED THE ABOVE DOCUMENT, WRITTEN BY ARLEY ODOM AND I VERIFY THAT IT IS ACCURATE PN WORKMANS' COMP OPINION IN YOUR OPINION, WAS THE INCIDENT THAT THE PATIENT DESCRIBED THE COMPETENT MEDICAL CAUSE OF THIS INJURY/ILLNESS? YES ARE THE PATIENT'S COMPLAINTS CONSISTENT WITH HIS/HER HISTORY OF THE INJURY/ILLNESS? YES IS THE PATIENT'S HISTORY OF THE INJURY/ILLNESS CONSISTENT WITH YOUR OBJECTIVE FINDING? YES WHAT IS THE PERCENTAGE OF TEMPORARY IMPAIRMENT? TOTAL = 100% IS THE PATIENT WORKING? YES DOCTOR ON SITE: TREY SIERRA MD DIAGNOSTIC IMAGING [facility] FLUORO GUIDANCE (PAIN)[id number] PROCEDURE CODES 50752 MOD SED SAME PHYS/QHP 5/>YRS 43187 INJECT SACROILIAC JOINT 6045F RADXPS IN END [id number] PXD DISPOSITION & COMMUNICATION FOLLOW UP 3 WEEKS ELECTRONICALLY SIGNED BY TREY QUINTANILLA MD ON 03/09/2017 AT 05:46 PM EDT DISCLAIMER : THIS IS A VISIT SUMMARY EXTRACTED FROM THE [employer] CHART. IT IS NOT A COPY OF THE [employer] PROGRESS NOTE. MIKE
== END ==
LOC: M PAIN 10:20
PROVIDERS: ATTEND Anesthesiology
DX: M46.1 Sacroiliitis, not elsewhere classified (principal); M54.9 Dorsalgia, unspecified; G89.29 Other chronic pain; Z79.899 Other long term (current) drug therapy; Z88.6 Allergy status to analgesic agent
CPT/HCPCS: 76000; 99152; G0260; J2250; J3010; J3301; Q9967

== ENCOUNTER → 2017-04-29 | Outpatient (CLI) | payer OTHER ==
[~2017-04-29] MED LIST changes: -BUPIVACAINE HCL 0.25% 30 ML VIAL As Ordered ONE; -ISOVUE-M 300 61% 15ML VIAL (Q9967) As Ordered ONE; -LIDOCAINE 1% SDV INJ 30 ML VIAL As Ordered ONE; -MIDAZOLAM INJ 2 MG/2 ML VIAL (J2250) As Ordered ONE; -TRIAMCINOLONE ACETONIDE SUSP 40 MG/ML VIAL (J3301) As Ordered ONE; +VITA1CAP40 PO; -VITA50003 PO; -fentaNYL 100 MCG/2 ML INJECTION (J3010) As Ordered ONE
--- NOTE | 2017-05-15 00:18 | ECWPNPC ---
PATIENT NAME: MARIMAR JARVIS : 1955 GENDER: FEMALE VISIT DATE: 04/29/2017 DISCHARGE DATE: 04/29/17 1547 VISIT LOCKED DATE TIME: PHYSICIAN: TREY QUINTANILLA RESOURCE: TREY QUINTANILLA REASON FOR APPOINTMENT 1. W/C BACK PAIN HISTORY OF PRESENT ILLNESS HISTORY OF PRESENT ILLNESS: PAIN THE PATIENT DESCRIBES THE PAIN... 61 YEAR OLD FEMALE PATIENT WITH HISTORY OF CHRONIC LOW BACK PAIN. PATIENT DESCRIBES THE PAIN ACHING, SHARP, AND HAVING IT ALL THE TIME WITH A PAIN SCORE OF 3/10. 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 JARVIS. PATIENT RECEIVED A BACK SURGERY 4 YEARS AFTER THE ACCIDENT AND STATES THAT SHE STILL HAS A SIGNIFICANT AMOUNT OF PAIN IN HER BACK. PATIENT RECEIVED A SACROILIAC JOINT INJECTION ON 02/25/27 AND REPORTS HAVING OVER 50% RELIEF FROM THE PAIN FOR OVER 7 WEEKS AND REPORTS NOT USING MUCH MEDICATION WITH INCREASED MOBILITY AND FUNCTIONALITY. HOWEVER PATIENT STATES THAT SHE FEELS A LOT OF PRESSURE IN THE CENTER OF HER LOWER BACK. CURRENTLY PATIENT IS USING GABAPENTIN TO AID IN PAIN RELIEF WHICH SHE STATES HELPS WITH THE NEUROPATHIC PAIN. MRS. JARVIS STATES THAT ANY ACTIVITY INCREASES THE PAIN IN HER LOWER BACK AND AT THIS TIME REST IS THE ONLY THING THAT AIDS IN PAIN RELIEF. PATIENT DENIES UNEXPLAINABLE WEIGHT LOSS, FEVER, CHILLS, NEW CHANGES ON HER URINARY OR BOWEL CONTROL. FALL RISK SCREENING: SCREENING :NO FALLS IN THE PAST YEAR CURRENT MEDICATIONS TAKING CELEXA 40 MG TABLET 1 TABLET ORALLY TWICE DAILY, NOTES: 02/25 7AM TAKING LORATADINE 10 MG TABLET 1 TABLET ORALLY ONCE A DAY, NOTES: 02/25 7AM TAKING GABAPENTIN 300 MG CAPSULE 1 CAPSULE ORALLY BEFORE BEDTIME FOR PAIN, NOTES: 02/23 NOT-TAKING KETOROLAC TROMETHAMINE 10 MG TABLET 1 TABLET WITH FOOD OR MILK NEEDED ORALLY WITH FOOD EVERY 6 HRS NEEDEDFOR PAIN MDD3 NOT-TAKING XANAX 1 MG TABLET 1 TABLET ORALLY TWICE A DAY NEEDED, NOTES: 2016-10-10 2200 NOT-TAKING BENADRYL 25 MG CAPSULE 1-2 CAPSULES ORALLY AT NIGHT, NOTES: 2016-09-24 NOT-TAKING MULTI COMPLETE CAPSULE ORALLY DAILY NOT-TAKING VITAMIN B COMPLEX CAPSULE ORALLY DAILY NOT-TAKING TYLENOL 500 MG TABLETS 1 TABLET ORALLY NEEDED NOT-TAKING IBUPROFEN 800 MG TABLET 1 TABLET ORALLY NEEDED NOT-TAKING TRAMADOL HCL 50 MG TABLET 1 TABLET NEEDED ORALLY EVERY 6 HRSPRN PAIN MDD=6 NOT-TAKING PERCOCET 10-325 MG TABLET 2 TABLET NEEDED ORALLY TAKE 2 TABS ON ARRIVAL TO CLINIC FOR PROCEDURE MDD=2 NOT-TAKING VALIUM 5 MG TABLET 2 ORALLY 2 TAB 1HR PRE PROC. MDD2 DO NOT DRIVE AFTER TAKING MEDS MEDICATION LIST REVIEWED AND RECONCILED WITH THE PATIENT PAST MEDICAL HISTORY INSOMNIA BILATERAL FOOT PAIN ANXIETY DEPRESSION POST LAMINECTOMY PAIN ALLERGIES NAPROXEN: ORBITAL PRESSURE: ALLERGY REVIEW OF SYSTEMS REVIEWED BY: PROVIDER: TREY QUINTANILLA MD . CONSTITUTIONAL: ANY CHANGE IN YOUR MEDICAL CONDITION? NO . CHILLS NO . FEVER NO . INFECTION: DO YOU HAVE NEW INFECTIONS? NO . DO YOU HAVE HISTORY OF MRSA? NO . MUSCULOSKELETAL: ANY NEW PATTERNS OF PAIN OR NUMBNESS? YES PT HAD SIJ LEFT 02/25/17, REPORTS EXCELLENT RESULTS FROM THIS INJECTION AND IS STILL EXPERIENCING PAIN RELIEF IN LEFT SIDE, BUT NOW REPORTS SOME NEW PAIN IN MID LOWER BACK AREA THAT STARTED ABOUT 3 WEEKS AGO. . GASTROENTEROLOGY: ANY NEW CHANGE IN BOWEL CONTROL? NO . GENITOURINARY: ANY NEW CHANGE IN BLADDER CONTROL? NO . IS THERE A CHANCE YOU COULD BE ? NO . HEMATOLOGY/LYMPH: DO YOU TAKE ANY BLOOD THINNERS? (FOR EXAMPLE- COUMADIN, PLAVIX, AGGRENOX, PLATEL, PRADAXA, OR XARELTO) NO . WHEN WAS YOUR LAST DOSE? DATE: TIME: . NEUROLOGY: HAVE YOU FALLEN IN THE PAST 6 MONTHS? YES PT CARRYING A BUCKET OF WATER, GOING UP ONE STEP, TRIPPED ON THE STEP AND FELL ONTO LEFT SIDE. NO ED VISIT, BUT WONDERS IF SHE CRACKED A RIB. THIS HAPPENED THREE WEEKS AGO. . ANY NEW EXTREMITY NUMBNESS OR WEAKNESS? NO . CARDIOLOGY: DO YOU HAVE A PACEMAKER OR DEFIBRILLATOR? NO . RESPIRATORY: HAVE YOU BEEN SICK IN THE PAST WEEK? NO . FEVER NO . FLU LIKE SYMPTOMS? NO . COUGH NO . INTEGUMENTARY: DO YOU HAVE ANY RASHES OR OPEN SORES? NO . ALLERGIC/IMMUNO: ARE YOU ALLERGIC TO SHELLFISH OR IV DYE? NO . ANY NEW ALLERGIES? NO . PSYCHIATRIC: DO YOU HAVE THOUGHTS OF HURTING YOURSELF OR SOMEONE ELSE? NO . ARE YOU ABUSED, NEGLECTED, OR IN AN UNSAFE ENVIRONMENT? NO . ENDOCRINOLOGY: ARE YOU DIABETIC? NO . OTHER: DO YOU NEED ANY PRESCRIPTIONS? NO . IF YES, PLEASE LIST: ____ . ANY NEW PROBLEMS WITH YOUR MEDICATIONS? NO . WHEN DID YOU LAST EAT? ____ . WHEN DID YOU LAST DRINK? ____ . WHAT DID YOU LAST DRINK? ____ . NAME OF PERSON DRIVING YOU HOME? ____ . DO YOU HAVE ANY OTHER QUESTIONS OR CONCERNS NO . VITAL SIGNS WT 161 LBS, HT 66 IN, BMI 25.98 INDEX, BP 128/66 MM HG, HR 68 /MIN, RR 18 /MIN, TEMP 97.5 F, OXYGEN SAT % 96%, SAFE IN ENV? (Y/N) YES, REVIEWED BY: LINUS. EXAMINATION : PATIENT IS ALERT O X 3 AND COOPERATIVE. TENDERNESS IN THE LOWER BACK AND PARASPINAL MUSCLE GROUP. LEFT LEG IS WEAKER THEN THE RIGHT AT EXTENSION AND ESPECIALLY FLEXION. FABERE TEST POSITIVE FOR PAIN IN LEFT AND RIGHT SACROILIAC JOINT AREAS. PATIENT ABLE TO FLEX HER BACK 45 DEGREE AND 5 DEGREE WITH DIFFICULTY. MRI DONE ON 04/21/15 SHOWS DISC BULGES AT L1-L2, L2-L3, AND L4-L5, DISC PROTRUSION AT L5-S1 WITH FACET HYPERTROPHY. ASSESSMENTS POSTLAMINECTOMY SYNDROME, NOT ELSEWHERE CLASSIFIED - M96.1 (PRIMARY) SACROILIITIS, NOT ELSEWHERE CLASSIFIED - M46.1 SPONDYLOSIS WITHOUT MYELOPATHY OR RADICULOPATHY, LUMBAR REGION - M47.816 SPONDYLOSIS WITHOUT MYELOPATHY OR RADICULOPATHY, LUMBOSACRAL REGION - M47.817 TREATMENT POSTLAMINECTOMY SYNDROME, NOT ELSEWHERE CLASSIFIED NOTES: WE DICUSSED SEVERAL ISSUES WITH MRS. JARVIS' PAIN MANAGEMENT CASE. AT THIS TIME THE PATIENT WILL CONTINUE WITH THE SAME MEDIATION REGIME BEFORE. PATIENT WILL CONTINUE WITH GABAPENTIN FOR THE NEUROPATHIC PAIN AND IBUPROFEN FOR THE INFLAMMATION. PATIENT STATES THE MEDICATION DOES AID IN PAIN RELIEF. PATIENT STATES SHE IS DOING VERY WELL FROM THE SACROILIAC JOINT BLOCK. MRS. JARVIS STATES THAT THE SACROILIAC JOINT INJECTION GAVE HER LONG LASTING RELIEF FROM THE PAIN IN THE SACROILIAC JOINT REGION BUT SHE HAS PRESSURE OVER THE CENTER LOWER BACK AREA. I WOULD LIKE TO MOVE FORWARD WITH A SACRO-COCCYGEAL LIGAMENT INJECTION. WE DISCUSSED THE RISKS, BENENFITS, AND ALTNERATIVES OF THE INJECTION AND THE PATIENT WOULD LIKE TO PROCEED AT THIS TIME. INSTRUCTIONS WERE GIVEN, QUESTIONS WERE ANSWERED, PATIENT REPORTS UNDERSTANDING AND AGREES WITH THE PLAN. I, ARLEY TAVARES, DOCUMENTED THE ABOVE INFORMATION ACTING A SCRIBE FOR DR. QUINTANILLA. I HAVE REVIEWED THE ABOVE DOCUMENT, WRITTEN BY ARLEY ODOM AND I VERIFY THAT IT IS ACCURATE. OTHERS REFILL GABAPENTIN CAPSULE, 300 MG, 1 CAPSULE, ORALLY, BEFORE BEDTIME FOR PAIN, 30 DAY(S), 30, REFILLS 2, NOTES: 02/23 START IBUPROFEN TABLET, 800 MG, 1 TABLET WITH FOOD OR MILK, ORALLY, EVERY 6 HOURS NEEDED FOR PAIN MDD3, 30 DAY(S), 50, REFILLS 2 PROCEDURES PN WORKMANS' COMP OPINION IN YOUR OPINION, WAS THE INCIDENT THAT THE PATIENT DESCRIBED THE COMPETENT MEDICAL CAUSE OF THIS INJURY/ILLNESS? YES ARE THE PATIENT'S COMPLAINTS CONSISTENT WITH HIS/HER HISTORY OF THE INJURY/ILLNESS? YES IS THE PATIENT'S HISTORY OF THE INJURY/ILLNESS CONSISTENT WITH YOUR OBJECTIVE FINDING? YES WHAT IS THE PERCENTAGE OF TEMPORARY IMPAIRMENT? TOTAL = 100% IS THE PATIENT WORKING? NO DOCTOR ON SITE: TREY SIERRA MD PROCEDURE CODES FA211 ESTABILISHED PATIENT [facility] FACILITY CHARGE G8427 DOC MEDS VERIFIED W/PT OR RE G8730 PAIN ASSESS POS TOOL F/U PLAN DOC DISPOSITION & COMMUNICATION FOLLOW UP SACROCOCCYGEAL LIGAMENT INJECTION AFTER APPROVAL ELECTRONICALLY SIGNED BY TREY QUINTANILLA MD ON 05/13/2017 AT 11:15 PM EDT DISCLAIMER : THIS IS A VISIT SUMMARY EXTRACTED FROM THE [employer] CHART. IT IS NOT A COPY OF THE [employer] PROGRESS NOTE. MIKE
== END ==
LOC: M PAIN 12:40
PROVIDERS: ATTEND Anesthesiology
DX: M96.1 Postlaminectomy syndrome, not elsewhere classified (principal); M46.1 Sacroiliitis, not elsewhere classified; M47.816 Spondylosis without myelopathy or radiculopathy, lumbar region; M47.817 Spondylosis without myelopathy or radiculopathy, lumbosacral region; F41.9 Anxiety disorder, unspecified; F32.9 Major depressive disorder, single episode, unspecified; G47.00 Insomnia, unspecified; Z88.8 Allergy status to other drugs, medicaments and biological substances; Z79.899 Other long term (current) drug therapy

== ENCOUNTER → 2017-06-10 | Outpatient (CLI) | payer OTHER ==
[~2017-06-10] MED LIST changes: +BUPIVACAINE HCL 0.25% 30 ML VIAL As Ordered ONE; +ISOVUE-M 300 61% 15ML VIAL (Q9967) As Ordered ONE; +LIDOCAINE 1% SDV INJ 30 ML VIAL As Ordered ONE; +MIDAZOLAM INJ 2 MG/2 ML VIAL (J2250) As Ordered ONE; +TRIAMCINOLONE ACETONIDE SUSP 40 MG/ML VIAL (J3301) As Ordered ONE; +diazePAM 5 MG TAB As Ordered ONE; +diphenhydrAMINE 25 MG CAP As Ordered ONE; +fentaNYL 100 MCG/2 ML INJECTION (J3010) As Ordered ONE; +oxyCODONE 5MG TAB As Ordered ONE
--- NOTE | 2017-06-11 00:22 | ECWPNPC ---
PATIENT NAME: MARIMAR JARVIS : 1955 GENDER: FEMALE VISIT DATE: 06/10/2017 DISCHARGE DATE: 06/10/178 VISIT LOCKED DATE TIME: PHYSICIAN: TREY QUINTANILLA RESOURCE: TREY QUINTANILLA REASON FOR APPOINTMENT 1. SACRO-COCCYGEAL LIGAMENT HISTORY OF PRESENT ILLNESS HISTORY OF PRESENT ILLNESS: PAIN THE PATIENT DESCRIBES THE PAIN... FALL RISK SCREENING: SCREENING :NO FALLS IN THE PAST YEAR CURRENT MEDICATIONS TAKING CELEXA 40 MG TABLET 1 TABLET ORALLY TWICE DAILY, NOTES: 06/10 730 TAKING GABAPENTIN 300 MG CAPSULE 1 CAPSULE ORALLY BEFORE BEDTIME FOR PAIN, NOTES: 06/09 2030 TAKING IBUPROFEN 800 MG TABLET 1 TABLET WITH FOOD OR MILK ORALLY EVERY 6 HOURS NEEDED FOR PAIN MDD3, NOTES: 06/10 730 NOT-TAKING LORATADINE 10 MG TABLET 1 TABLET ORALLY ONCE A DAY NOT-TAKING KETOROLAC TROMETHAMINE 10 MG TABLET 1 TABLET WITH FOOD OR MILK NEEDED ORALLY WITH FOOD EVERY 6 HRS NEEDEDFOR PAIN MDD3 NOT-TAKING XANAX 1 MG TABLET 1 TABLET ORALLY TWICE A DAY NEEDED, NOTES: 2016-10-102199 NOT-TAKING BENADRYL 25 MG CAPSULE 1-2 CAPSULES ORALLY AT NIGHT, NOTES: 2016-09-24 NOT-TAKING MULTI COMPLETE CAPSULE ORALLY DAILY NOT-TAKING VITAMIN B COMPLEX CAPSULE ORALLY DAILY NOT-TAKING TYLENOL 500 MG TABLETS 1 TABLET ORALLY NEEDED NOT-TAKING IBUPROFEN 800 MG TABLET 1 TABLET ORALLY NEEDED NOT-TAKING TRAMADOL HCL 50 MG TABLET 1 TABLET NEEDED ORALLY EVERY 6 HRSPRN PAIN MDD=6 NOT-TAKING PERCOCET 10-325 MG TABLET 2 TABLET NEEDED ORALLY TAKE 2 TABS ON ARRIVAL TO CLINIC FOR PROCEDURE MDD=2 NOT-TAKING VALIUM 5 MG TABLET 2 ORALLY 2 TAB 1HR PRE PROC. MDD2 DO NOT DRIVE AFTER TAKING MEDS MEDICATION LIST REVIEWED AND RECONCILED WITH THE PATIENT PAST MEDICAL HISTORY INSOMNIA BILATERAL FOOT PAIN ANXIETY DEPRESSION POST LAMINECTOMY PAIN ALLERGIES NAPROXEN: ORBITAL PRESSURE: ALLERGY SOCIAL HISTORY GENERAL: TOBACCO USE ARE YOU A:CURRENT SMOKER HOW MANY CIGARETTES A DAY DO YOU SMOKE?6-10 HOW SOON AFTER YOU WAKE UP DO YOU SMOKE YOUR FIRST CIGARETTE?6-30 MIN HOW OFTEN DO YOU SMOKE CIGARETTES?EVERY DAY PATIENT COUNSELED ON THE DANGERS OF TOBACCO USE AND URGED TO QUIT:06/10/2017 ARE YOU INTERESTED IN QUITTING?READY TO QUIT PREVIOUS QUIT ATTEMPTS?YES, MORE THAN 6 MONTHS AGO. IS PLANNING ON ASKING PCP TO GIVE HER A SCRIPT FOR CHANTIX WHICH HELPED HER PREVIOUSLY COUNSELED THE PATIENT ON TOBACCO USE, CESSATION [id number]/05/2017 ALCOHOL SCREENING DID YOU HAVE A DRINK CONTAINING ALCOHOL IN THE PAST YEAR? YES , POINTS 0 , INTERPRETATION NEGATIVE . RECREATIONAL DRUG USE DENIES. CAFFEINE CAFFEINE USE?NO OCCUPATION: RETIRED. DIET: REGULAR. EXERCISE: NO REGULAR EXERCISE. MARITAL STATUS: SINGLE. OTHERS AT HOME: NONE. PETS: 1 DOG AND 1 CAT. ADVENTIST [id number] SCIENTOLOGIST LANGUAGE LANGUAGES SPOKEN:SUDANESE EDUCATION LEVEL OF EDUCATION:COLLEGE LEARNING BARRIERS / SPECIAL NEEDS BARRIERS TO LEARNING?NO HEARING IMPAIRED?NO VISION IMPAIRED?YES :CORRECTIVE LENSES COGNITIVELY IMPAIRED?NO READINESS TO LEARN?YES LEARNING PREFERENCES?YES :DEMONSTRATION/VERBAL INSTRUCTION LEARNING CAPABILITIES PRESENT?YES EMOTIONAL BARRIERS?NO SPECIAL DEVICES?NO ENTERER NEEDED?NO PAIN CLINIC PFS, CLERGY, PUBLIC HEALTH REFERRALS PFS REFERRAL NEEDED? NO , CLERGY REFERRAL NEEDED? NO , PUBLIC HEALTH REFERRAL NEEDED? NO , WAS THE PATIENT NOTIFIED OF ANY PERTINENT INFO? NO . ADVANCE DIRECTIVES HEALTH CARE PROXY?NO WOULD YOU LIKE MORE INFORMATION?NO DO YOU HAVE A DNR?YES PER LIVING WILL DO YOU HAVE A COPY WITH YOU?NO LIVING WILL?YES DO YOU HAVE A COPY WITH YOU?NO POWER OF SENIOR INVESTMENT ANALYST?NO WOULD YOU LIKE MORE INFORMATION?NO RETIRED: YES. DOMESTIC VIOLENCE DO YOU FEEL SAFE IN YOUR ENVIRONMENT?YES REVIEW OF SYSTEMS REVIEWED BY: PROVIDER: . CONSTITUTIONAL: ANY CHANGE IN YOUR MEDICAL CONDITION? NO . CHILLS NO . FEVER NO . INFECTION: DO YOU HAVE NEW INFECTIONS? NO . DO YOU HAVE HISTORY OF MRSA? NO . MUSCULOSKELETAL: ANY NEW PATTERNS OF PAIN OR NUMBNESS? NO . GASTROENTEROLOGY: ANY NEW CHANGE IN BOWEL CONTROL? NO . GENITOURINARY: ANY NEW CHANGE IN BLADDER CONTROL? NO . IS THERE A CHANCE YOU COULD BE ? NO . HEMATOLOGY/LYMPH: DO YOU TAKE ANY BLOOD THINNERS? (FOR EXAMPLE- COUMADIN, PLAVIX, AGGRENOX, PLATEL, PRADAXA, OR XARELTO) NO . WHEN WAS YOUR LAST DOSE? DATE: TIME: . NEUROLOGY: HAVE YOU FALLEN IN THE PAST 6 MONTHS? YES, 3 TIMES SINCE THE BEGINNING OF SUMMER--DOESN'T KNOW IF SHE LOST HER BALANCE OR DIDN'T PICK HER FOOT UP TP STEP. NO INJURY&NBSP;. ANY NEW EXTREMITY NUMBNESS OR WEAKNESS? &NBSP;&NBSP; NO&NBSP;. CARDIOLOGY: DO YOU HAVE A PACEMAKER OR DEFIBRILLATOR? NO . RESPIRATORY: HAVE YOU BEEN SICK IN THE PAST WEEK? NO . FEVER NO . FLU LIKE SYMPTOMS? NO . COUGH NO . INTEGUMENTARY: DO YOU HAVE ANY RASHES OR OPEN SORES? NO . ALLERGIC/IMMUNO: ARE YOU ALLERGIC TO SHELLFISH OR IV DYE? NO . ANY NEW ALLERGIES? NO . PSYCHIATRIC: DO YOU HAVE THOUGHTS OF HURTING YOURSELF OR SOMEONE ELSE? NO . ARE YOU ABUSED, NEGLECTED, OR IN AN UNSAFE ENVIRONMENT? NO . ENDOCRINOLOGY: ARE YOU DIABETIC? NO . OTHER: DO YOU NEED ANY PRESCRIPTIONS? NO . IF YES, PLEASE LIST: ____ . ANY NEW PROBLEMS WITH YOUR MEDICATIONS? NO . WHEN DID YOU LAST EAT? 06/09 1800 . WHEN DID YOU LAST DRINK? 06/10 0800 . WHAT DID YOU LAST DRINK? COFFEE . NAME OF PERSON DRIVING YOU HOME? FRIEND, ANNA . DO YOU HAVE ANY OTHER QUESTIONS OR CONCERNS NO . VITAL SIGNS WT 160.2 LBS, HT 66 IN, BMI 25.85 INDEX, BP 115/60 MM HG, HR 69 /MIN, RR 16 /MIN, TEMP 98.1 F, OXYGEN SAT % 95, REVIEWED BY: ASSESSMENTS SPINAL ENTHESOPATHY, SACRAL AND SACROCOCCYGEAL REGION - M46.08 (PRIMARY) TREATMENT SPINAL ENTHESOPATHY, SACRAL AND SACROCOCCYGEAL REGION NOTES: PREPROCEDURE DIAGNOSIS:INFLAMMATION OF THE SACROCOCCYGEAL LIGAMENT.POSTPROCEDURE DIAGNOSIS:INFLAMMATION OF THE SACROCOCCYGEAL LIGAMENT.PROCEDURE: INJECTION OF THE RIGHT AND LEFT SACROCOCCYGEAL LIGAMENT. SURGEON: DR. TREY ROUSETIMPANOG[facility] HOSPITALMICHELINEANESTHESIA: LOCAL WITH IV SEDATIONPREOPERATIVE NOTE: THE PATIENT HAS HISTORY OF LOW BACK PAIN. I EVALUATED THE PATIENT AND REVIEWED THE CHART. WE BOTH AGREE ON INJECTING OVER THE SACROCOCCYGEAL LIGAMENT. THE PATIENT IS AWARE OF THE POTENTIAL COMPLICATIONS WHICH INCLUDE INFECTIONS, VISCERAL PUNCTURE, INCLUDING RECTAL PUNCTURE AMONG OTHERS. PATIENT WOULD LIKE TO MOVE FORWARD WITH IV SEDATION DUE TO DISCOMFORT, PAIN AND ANXIETY ASSOCIATED WITH THE PROCEDURE. I DISCUSSED ALTERNATIVES AND THE PATIENT EXPRESSED THAT SHE WOULD LIKE TO MOVE FORWARD. THE PATIENT DENIES UNEXPLAINABLE, WEIGHT LOSS, FEVER, CHILLS, OR CHANGES IN URINARY OR BOWEL CONTROL. DESCRIPTION OF PROCEDURE: AFTER CONSENT WAS TAKEN, THE PATIENT WAS BROUGHT TO THE PROCEDURE ROOM AND PLACED IN THE PRONE POSITION. THE LUMBOSACRAL AREA WAS CLEANED WITH CHLORAPREP SOLUTION AND DRAPED ASEPTICALLY. THE PROCEDURE WAS DONE UNDER STERILE CONDITIONS. UNDER FLUOROSCOPIC GUIDANCE, THE TARGET WAS SELECTED AT THE RIGHT AND LEFT SACROCOCCYGEAL LIGAMENT. LIDOCAINE WAS USED TO NUMB THE SKIN AND THE SUBCUTANEOUS TISSUE BELOW IT. A 25 NEEDLE WAS ADVANCED UNTIL WE REACHED THE RIGHT AND LEFT SACROCOCCYGEAL LIGAMENT. I DID AP AND LATERAL VIEWS. ISOVUE M DYE 30%, 1/4 ML, WAS INJECTED SHOWING ADEQUATE SPREAD OF THE DYE. THEN A SOLUTION OF 30 ML OF BUPIVACAINE 0.125% WITH KENALOG 30 MG WAS INJECTED OVER THE AFFECTED STRUCTURE. PATIENT RECEIVED VERSED 4 MG AND FENTANYL 200 MCG IV DIVIDED DOSES. THERE WAS NO EVIDENCE OF BLOOD, PARESTHESIA OR CEREBROSPINAL FLUID. NO EVIDENCE OF VACUUM PHENOMENON OR VISCERAL PUNCTURE. THE PATIENT WAS SENT TO THE RECOVERY ROOM WHERE SHE WAS MOVING HER EXTREMITIES AND DOING WELL. THERE WERE NO COMPLICATIONS DURING THE PROCEDURE. FLUOROSCOPY TIME 13 SECONDS. FACE TO FACE TIME WAS 22 MINUTESPOSTOPERATIVE NOTE: I DISCUSSED ALTERNATIVES WITH THE PATIENT. I AM LOOKING FOR LONG LASTING PAIN RELIEF WITH THIS INTERVENTION. INSTRUCTIONS WERE GIVEN. QUESTIONS WERE ANSWERED. THE PATIENT REPORTS UNDERSTANDING AND AGREES WITH THE PLAN. THERE WERE NO COMPLICATIONS DURING THE PROCEDURE.I, ARLEY TAVARES, DOCUMENTED THE ABOVE INFORMATION ACTING A SCRIBE FOR DR. QUINTANILLA. I HAVE REVIEWED THE ABOVE DOCUMENT, WRITTEN BY ARLEY ODOM AND I VERIFY THAT IT IS ACCURATE. PROCEDURES PN WORKMANS' COMP OPINION IN YOUR OPINION, WAS THE INCIDENT THAT THE PATIENT DESCRIBED THE COMPETENT MEDICAL CAUSE OF THIS INJURY/ILLNESS? YES ARE THE PATIENT'S COMPLAINTS CONSISTENT WITH HIS/HER HISTORY OF THE INJURY/ILLNESS? YES IS THE PATIENT'S HISTORY OF THE INJURY/ILLNESS CONSISTENT WITH YOUR OBJECTIVE FINDING? YES WHAT IS THE PERCENTAGE OF TEMPORARY IMPAIRMENT? TOTAL = 100% IS THE PATIENT WORKING? NO DOCTOR ON SITE: TREY SIERRA MD DIAGNOSTIC IMAGING [facility] GUIDANCE (PAIN)[id number] PROCEDURE CODES 54339 INJ TENDON SHEATH/LIGAMENT 04451 MOD SED SAME PHYS/QHP 5/>YRS 38872 NEEDLE LOCALIZATION BY XRAY DISPOSITION & COMMUNICATION FOLLOW UP 3 WEEKS ELECTRONICALLY SIGNED BY TREY QUINTANILLA MD ON 06/10/2017 AT 06:00 PM EDT DISCLAIMER : THIS IS A VISIT SUMMARY EXTRACTED FROM THE [employer] CHART. IT IS NOT A COPY OF THE [employer] PROGRESS NOTE. MIKE
--- NOTE | 2017-06-11 07:19 | REP ---
Partial sacrum and coccyx series: Six views. History: Injection procedure for pain. 13 seconds of fluoroscopy time is reported. Findings: A sequence of six last image hold fluoroscopic spot radiographs of the sacrum and coccyx document needle position and contrast injection associated with injection procedure. Signed by Yannick Eller MD 06/11/2017 08:03 A
== END ==
LOC: M PAIN 13:45
PROVIDERS: ATTEND Anesthesiology
DX: M46.08 Spinal enthesopathy, sacral and sacrococcygeal region (principal); F17.210 Nicotine dependence, cigarettes, uncomplicated; F32.9 Major depressive disorder, single episode, unspecified; F41.9 Anxiety disorder, unspecified; M96.1 Postlaminectomy syndrome, not elsewhere classified; M47.816 Spondylosis without myelopathy or radiculopathy, lumbar region; M47.817 Spondylosis without myelopathy or radiculopathy, lumbosacral region; M79.1 Myalgia; Z88.6 Allergy status to analgesic agent
CPT/HCPCS: 20550; 77002; 99152; J2250; J3010; J3301; Q9967

== ENCOUNTER → 2017-08-06 | Outpatient (CLI) | payer OTHER ==
[~2017-08-06] MED LIST changes: -BUPIVACAINE HCL 0.25% 30 ML VIAL As Ordered ONE; -ISOVUE-M 300 61% 15ML VIAL (Q9967) As Ordered ONE; -LIDOCAINE 1% SDV INJ 30 ML VIAL As Ordered ONE; -MIDAZOLAM INJ 2 MG/2 ML VIAL (J2250) As Ordered ONE; -TRIAMCINOLONE ACETONIDE SUSP 40 MG/ML VIAL (J3301) As Ordered ONE; -diazePAM 5 MG TAB As Ordered ONE; -diphenhydrAMINE 25 MG CAP As Ordered ONE; -fentaNYL 100 MCG/2 ML INJECTION (J3010) As Ordered ONE; -oxyCODONE 5MG TAB As Ordered ONE
--- NOTE | 2017-09-04 02:08 | ECWPNPC ---
PATIENT NAME: MARIMAR JARVIS : 1955 GENDER: FEMALE VISIT DATE: 08/06/2017 DISCHARGE DATE: 08/06/17 1128 VISIT LOCKED DATE TIME: PHYSICIAN: JENNI LAGOS RESOURCE: JENNI LAGOS REASON FOR APPOINTMENT 1. WC, POST PROCEDURE HISTORY OF PRESENT ILLNESS HISTORY OF PRESENT ILLNESS: PAIN THE PATIENT DESCRIBES THE PAIN... FALL RISK SCREENING: SCREENING :NO FALLS IN THE PAST YEAR TODAY'S VISIT: NOTES: FOLLOW UP FOR BACK PAIN RATES PAIN TODAY 12/13. IS S/P BILATERAL SACCROCOCCYGEAL LIGAMENT INJECTION COMPLATED 06/10/17. NOTES THAT PAIN HAS BEEN BEEN SIG RELIEVED. PAIN LEVEL PRIOR -05/15, AND 12/13 POST INJECTION ALTHOUGH HAS HAD DAYS EVEN BETTER. NO CURRENT PAIN IN LEFT LEG. . CURRENT MEDICATIONS TAKING CELEXA 40 MG TABLET 1 TABLET ORALLY TWICE DAILY TAKING GABAPENTIN 300 MG CAPSULE 1 CAPSULE ORALLY BEFORE BEDTIME FOR PAIN TAKING IBUPROFEN 800 MG TABLET 1 TABLET WITH FOOD OR MILK ORALLY EVERY 6 HOURS NEEDED FOR PAIN MDD3 NOT-TAKING LORATADINE 10 MG TABLET 1 TABLET ORALLY ONCE A DAY NOT-TAKING KETOROLAC TROMETHAMINE 10 MG TABLET 1 TABLET WITH FOOD OR MILK NEEDED ORALLY WITH FOOD EVERY 6 HRS NEEDEDFOR PAIN MDD3 NOT-TAKING XANAX 1 MG TABLET 1 TABLET ORALLY TWICE A DAY NEEDED, NOTES: 2016-10-10 2200 NOT-TAKING BENADRYL 25 MG CAPSULE 1-2 CAPSULES ORALLY AT NIGHT, NOTES: 2016-09-24 NOT-TAKING MULTI COMPLETE CAPSULE ORALLY DAILY NOT-TAKING VITAMIN B COMPLEX CAPSULE ORALLY DAILY NOT-TAKING TYLENOL 500 MG TABLETS 1 TABLET ORALLY NEEDED NOT-TAKING IBUPROFEN 800 MG TABLET 1 TABLET ORALLY NEEDED NOT-TAKING TRAMADOL HCL 50 MG TABLET 1 TABLET NEEDED ORALLY EVERY 6 HRSPRN PAIN MDD=6 NOT-TAKING PERCOCET 10-325 MG TABLET 2 TABLET NEEDED ORALLY TAKE 2 TABS ON ARRIVAL TO CLINIC FOR PROCEDURE MDD=2 NOT-TAKING VALIUM 5 MG TABLET 2 ORALLY 2 TAB 1HR PRE PROC. MDD2 DO NOT DRIVE AFTER TAKING MEDS MEDICATION LIST REVIEWED AND RECONCILED WITH THE PATIENT PAST MEDICAL HISTORY INSOMNIA BILATERAL FOOT PAIN ANXIETY DEPRESSION POST LAMINECTOMY PAIN ALLERGIES NAPROXEN: ORBITAL PRESSURE: ALLERGY SOCIAL HISTORY GENERAL: TOBACCO USE ARE YOU A:CURRENT SMOKER HOW MANY CIGARETTES A DAY DO YOU SMOKE?6-10 HOW SOON AFTER YOU WAKE UP DO YOU SMOKE YOUR FIRST CIGARETTE?6-30 MIN HOW OFTEN DO YOU SMOKE CIGARETTES?EVERY DAY PATIENT COUNSELED ON THE DANGERS OF TOBACCO USE AND URGED TO QUIT:06/10/2017 ARE YOU INTERESTED IN QUITTING?READY TO QUIT PREVIOUS QUIT ATTEMPTS?YES, MORE THAN 6 MONTHS AGO. IS PLANNING ON ASKING PCP TO GIVE HER A SCRIPT FOR CHANTIX WHICH HELPED HER PREVIOUSLY COUNSELED THE PATIENT ON TOBACCO USE, CESSATION [id number]/05/2017 ALCOHOL SCREENING DID YOU HAVE A DRINK CONTAINING ALCOHOL IN THE PAST YEAR? YES , POINTS 0 , INTERPRETATION NEGATIVE . RECREATIONAL DRUG USE DENIES. CAFFEINE CAFFEINE USE?NO OCCUPATION: RETIRED. DIET: REGULAR. EXERCISE: NO REGULAR EXERCISE. MARITAL STATUS: SINGLE. OTHERS AT HOME: NONE. PETS: 1 DOG AND 1 CAT. SYNAGOGUE [id number] CHRISTIAN LANGUAGE LANGUAGES SPOKEN:TAJIK EDUCATION LEVEL OF EDUCATION:COLLEGE LEARNING BARRIERS / SPECIAL NEEDS CHANGE FROM LAST VISIT?NO BARRIERS TO LEARNING?NO HEARING IMPAIRED?NO VISION IMPAIRED?YES :CORRECTIVE LENSES COGNITIVELY IMPAIRED?NO READINESS TO LEARN?YES LEARNING PREFERENCES?YES :DEMONSTRATION/VERBAL INSTRUCTION LEARNING CAPABILITIES PRESENT?YES EMOTIONAL BARRIERS?NO SPECIAL DEVICES?NO JUMPBASTING ARMHOLE BASTER NEEDED?NO PAIN CLINIC PFS, CLERGY, PUBLIC HEALTH REFERRALS PFS REFERRAL NEEDED?NO CLERGY REFERRAL NEEDED?NO PUBLIC HEALTH REFERRAL NEEDED?NO HAS THE PATIENT BEEN EDUCATED REGARDING HIS/HER PLAN OF CARE?YES HAS THE PATIENT BEEN EDUCATED REGARDING PAIN, THE RISK FOR PAIN, THE IMPORTANCE OF EFFECTIVE PAIN MANAGEMENT, AND THE PAIN ASSESSMENT PROCESS?YES ADVANCE DIRECTIVES HEALTH CARE PROXY?NO WOULD YOU LIKE MORE INFORMATION?NO DO YOU HAVE A DNR?YES PER LIVING WILL DO YOU HAVE A COPY WITH YOU?NO LIVING WILL?YES DO YOU HAVE A COPY WITH YOU?NO POWER OF WATERPROOF MATERIAL FOLDER?NO WOULD YOU LIKE MORE INFORMATION?NO RETIRED: YES. DOMESTIC VIOLENCE DO YOU FEEL SAFE IN YOUR ENVIRONMENT?YES REVIEW OF SYSTEMS FOLLOW-UP ROS: PSYCHOLOGY: SLEEP DISTURBANCE- MULTIPLE CAUSES . REVIEWED BY: PROVIDER: JENNI GREENE . CONSTITUTIONAL: ANY CHANGE IN YOUR MEDICAL CONDITION? NO . CHILLS NO . FEVER NO . INFECTION: DO YOU HAVE NEW INFECTIONS? NO . DO YOU HAVE HISTORY OF MRSA? NO . MUSCULOSKELETAL: ANY NEW PATTERNS OF PAIN OR NUMBNESS? NO . GASTROENTEROLOGY: ANY NEW CHANGE IN BOWEL CONTROL? NO . GENITOURINARY: ANY NEW CHANGE IN BLADDER CONTROL? NO . IS THERE A CHANCE YOU COULD BE ? NO . HEMATOLOGY/LYMPH: DO YOU TAKE ANY BLOOD THINNERS? (FOR EXAMPLE- COUMADIN, PLAVIX, AGGRENOX, PLATEL, PRADAXA, OR XARELTO) NO . WHEN WAS YOUR LAST DOSE? DATE: TIME: . NEUROLOGY: HAVE YOU FALLEN IN THE PAST 6 MONTHS? NO . ANY NEW EXTREMITY NUMBNESS OR WEAKNESS? NO . CARDIOLOGY: DO YOU HAVE A PACEMAKER OR DEFIBRILLATOR? NO . RESPIRATORY: HAVE YOU BEEN SICK IN THE PAST WEEK? NO . FEVER NO . FLU LIKE SYMPTOMS? NO . COUGH YES - WAS EVENTUALLY STARTED ON ABX BUT NOT MUCH HELP . INTEGUMENTARY: DO YOU HAVE ANY RASHES OR OPEN SORES? NO . ALLERGIC/IMMUNO: ARE YOU ALLERGIC TO SHELLFISH OR IV DYE? NO . ANY NEW ALLERGIES? NO . PSYCHIATRIC: DO YOU HAVE THOUGHTS OF HURTING YOURSELF OR SOMEONE ELSE? NO . ARE YOU ABUSED, NEGLECTED, OR IN AN UNSAFE ENVIRONMENT? NO . ENDOCRINOLOGY: ARE YOU DIABETIC? NO . OTHER: DO YOU NEED ANY PRESCRIPTIONS? NO . IF YES, PLEASE LIST: ____ . ANY NEW PROBLEMS WITH YOUR MEDICATIONS? NO . WHEN DID YOU LAST EAT? ____ . WHEN DID YOU LAST DRINK? ____ . WHAT DID YOU LAST DRINK? ____ . NAME OF PERSON DRIVING YOU HOME? ____ . DO YOU HAVE ANY OTHER QUESTIONS OR CONCERNS NO . VITAL SIGNS WT 155.6 LBS, HT 66 IN, BMI 25.11 INDEX, BP 12/705 MM HG, HR 66 /MIN, RR 18 /MIN, TEMP 98.1 F, OXYGEN SAT % 98%, SAFE IN ENV? (Y/N) YES, REVIEWED BY: LOREE (DONE AT 1044). EXAMINATION GENERAL EXAMINATION: PSYCHALERT , ORIENTED X 3 , APPROPRIATE MOOD AND AFFECT . LUNGS:CLEAR TO AUSCULTATION BILATERALLY. HEART:HEART RATE REGULAR, NORMAL S1S2. MUSCULOSKELETAL:MILD TENDERNESS OVER SACRUM AND LEFT BUTTUCK . , TRIGGER POINTS AND TIGHT FIBROUS BANDS IDENTIFIED IN THIS AREA. SLOW TO RISE TO STANDING POSITION. POSTRUE UPRIGHT. GAIT NONANTALGIC. ASSESSMENTS SPINAL ENTHESOPATHY, SACRAL AND SACROCOCCYGEAL REGION - M46.08 (PRIMARY) POSTLAMINECTOMY SYNDROME, NOT ELSEWHERE CLASSIFIED - M96.1 (PRIMARY) TREATMENT SPINAL ENTHESOPATHY, SACRAL AND SACROCOCCYGEAL REGION NOTES: CONTINUE EXERCISES AND STRETCHES. WALK DAYLY. ALTERNATE ICE AND HEAT TO PAINFUL AREAS OVER LOW BACK/BUTTUCK AREA. PROCEDURES PN WORKMANS' COMP OPINION IN YOUR OPINION, WAS THE INCIDENT THAT THE PATIENT DESCRIBED THE COMPETENT MEDICAL CAUSE OF THIS INJURY/ILLNESS? YES ARE THE PATIENT'S COMPLAINTS CONSISTENT WITH HIS/HER HISTORY OF THE INJURY/ILLNESS? YES IS THE PATIENT'S HISTORY OF THE INJURY/ILLNESS CONSISTENT WITH YOUR OBJECTIVE FINDING? YES WHAT IS THE PERCENTAGE OF TEMPORARY IMPAIRMENT? TOTAL = 100% IS THE PATIENT WORKING? NO DOCTOR ON SITE: TREY SIERRA MD PROCEDURE CODES FA211 ESTABILISHED PATIENT [facility] FACILITY CHARGE DISPOSITION & COMMUNICATION FOLLOW UP 2 MONTHS (REASON: WC BACK) ELECTRONICALLY SIGNED BY JASON SKAGGS ON 09/01/2017 AT 02:42 PM EST DISCLAIMER : THIS IS A VISIT SUMMARY EXTRACTED FROM THE [employer] CHART. IT IS NOT A COPY OF THE [employer] PROGRESS NOTE. MIKE
== END | disposition home or self-care (01) ==
LOC: M PAIN 10:15
PROVIDERS: ATTEND Nurse Practitioner Family
DX: G89.29 Other chronic pain (principal); M46.08 Spinal enthesopathy, sacral and sacrococcygeal region; M96.1 Postlaminectomy syndrome, not elsewhere classified; G47.00 Insomnia, unspecified; F41.9 Anxiety disorder, unspecified; F33.9 Major depressive disorder, recurrent, unspecified; Z79.899 Other long term (current) drug therapy; Z88.8 Allergy status to other drugs, medicaments and biological substances; F17.210 Nicotine dependence, cigarettes, uncomplicated

== ENCOUNTER → 2017-10-08 | Outpatient (CLI) | payer OTHER | LOC: M PAIN 10:15 | DX: M46.08 Spinal enthesopathy, sacral and sacrococcygeal region (principal); M96.1 Postlaminectomy syndrome, not elsewhere classified; F32.9 Major depressive disorder, single episode, unspecified; F41.9 Anxiety disorder, unspecified; Z79.899 Other long term (current) drug therapy; Z88.8 Allergy status to other drugs, medicaments and biological substances | CPT/HCPCS: G0463 ==

== ENCOUNTER → 2017-11-24 | Outpatient (CLI) | payer OTHER ==
[~2017-11-24] MED LIST changes: -/ESOM40CA OR; -AMBI10TA PO; -AMIT25TA10 PO; -BENA25TA4 PO; +BUPIVACAINE HCL 0.25% 30 ML VIAL As Ordered; -CALCIUM CITRATE PO; -CELE10TA PO; -CELE20TA OR; -FLECTOR1.3 TOP; -IBUP800T OR; +ISOVUE-M 300 61% 15ML VIAL (Q9967) As Ordered; +LIDOCAINE 1% SDV INJ 30 ML VIAL As Ordered; -LYRI75CA OR; -MELA; +MIDAZOLAM INJ 2 MG/2 ML VIAL (J2250) As Ordered; -MULT1TAB10 PO; -MULTIVIT OR; -PERCOCET PO; -SENO8.6T9 PO; -SLEEP AID OTC OR; -SOMA350T OR; -SOMA350T PO; -TRAM37.5 PO; -TRAM50TA2 OR; -TRAZ50TA OR; +TRIAMCINOLONE ACETONIDE SUSP 40 MG/ML VIAL (J3301) As Ordered; -TYLE1TAB5 PO; -VALI5TAB OR; -VIT D 2000 OR; -VITA1CAP40 PO; -VITA500T OR; -XANA1TAB2 OR; -[UNRECOGNIZED DRUG - MIXTURE] TOP; -citrical PO; +fentaNYL 100 MCG/2 ML INJECTION (J3010) As Ordered; -melatonin PO
== END ==
LOC: M PAIN 11:00
DX: G89.29 Other chronic pain (principal); M46.08 Spinal enthesopathy, sacral and sacrococcygeal region; G47.00 Insomnia, unspecified; F41.9 Anxiety disorder, unspecified; F32.9 Major depressive disorder, single episode, unspecified; F17.200 Nicotine dependence, unspecified, uncomplicated; Z79.899 Other long term (current) drug therapy; Z88.8 Allergy status to other drugs, medicaments and biological substances
CPT/HCPCS: J3301

== ENCOUNTER → 2018-03-05 | Outpatient (CLI) | payer OTHER | LOC: M PAIN 13:00 | DX: G89.29 Other chronic pain (principal); M46.1 Sacroiliitis, not elsewhere classified; G47.00 Insomnia, unspecified; F41.9 Anxiety disorder, unspecified; F32.9 Major depressive disorder, single episode, unspecified; M96.1 Postlaminectomy syndrome, not elsewhere classified; F17.210 Nicotine dependence, cigarettes, uncomplicated; Z79.899 Other long term (current) drug therapy; Z88.6 Allergy status to analgesic agent | CPT/HCPCS: J3301 ==

== ENCOUNTER 2018-03-07 12:29 | Emergency (ER) | payer MEDICARE, MEDICAID, OTHER ==
[2018-03-07] MEDS ORDERED: KETOROLAC 30 MG/ML VIAL (J1885) As Ordered (13:12)
[2018-03-07] MEDS: KETOROLAC 60 MG/2 ML VIAL (J1885) IM (13:25)
== END 2018-03-07 19:06 | disposition home or self-care (01) ==
LOC: M ED 12:29
DX: G89.29 Other chronic pain (principal); M54.9 Dorsalgia, unspecified; Z72.0 Tobacco use; Z79.899 Other long term (current) drug therapy; Z88.8 Allergy status to other drugs, medicaments and biological substances
CPT/HCPCS: J1885

== ENCOUNTER 2018-03-08 17:20 | Emergency (ER) | payer MEDICARE, MEDICAID ==
[2018-03-08] MEDS: NS 1,000 ML IV (18:27)
[2018-03-08 18:34] LABS: BASO % 0.2 % (0.0-1.0); EOS % 0.1 % (0.0-3.0); HEMATOCRIT 46.1 % (36.0-47.0); HEMOGLOBIN 15.7 g/dl (12.0-15.5); IMMATURE GRANULOCYTE % 0.6 % (0-3.0); LYMPH # 2.2 10^3/uL (1.5-4.5); LYMPH % 16.7 % (24.0-44.0); MEAN CORPUSCULAR HEMOGLOBIN 29.7 pg (27.0-33.0); MEAN CORPUSCULAR HGB CONC 34.1 g/dl (32.0-36.5); MEAN CORPUSCULAR VOLUME 87.1 fl (80.0-96.0); MONO # 0.8 10^3/uL (0.0-0.8); MONO % 6.4 % (0.0-5.0); NEUTROPHILS # 9.8 10^3/uL (1.8-7.7); PLATELET COUNT, AUTOMATED 235 10^3/uL (150-450); RED BLOOD COUNT 5.29 10^6/uL (4.00-5.40); RED CELL DISTRIBUTION WIDTH 13.2 % (11.5-14.5); WHITE BLOOD COUNT 12.9 10^3/uL (4.0-10.0)
[2018-03-08 18:56] LABS: AMMONIA 20 uMOL/L (<32)
[2018-03-08 19:01] LABS: ALBUMIN 3.7 GM/DL (3.2-5.2); ALBUMIN/GLOBULIN RATIO 1.09 (1.00-1.93); ALKALINE PHOSPHATASE 98 U/L (45-117); ALT/SGPT 21 U/L (12-78); ANION GAP 7 MEQ/L (8-16); AST/SGOT 10 U/L (7-37); BILIRUBIN,DIRECT < 0.1 MG/DL (0.0-0.2); BILIRUBIN,TOTAL 0.3 MG/DL (0.2-1.0); BLOOD UREA NITROGEN 19 MG/DL (7-18); CALCIUM LEVEL 9.1 MG/DL (8.8-10.2); CARBON DIOXIDE LEVEL 25 MEQ/L (21-32); CHLORIDE LEVEL 110 MEQ/L (98-107); CPK CREATINE PHOSPHOKINASE 58 U/L (26-192); CREATININE FOR GFR 0.89 MG/DL (0.55-1.30); GLOMERULAR FILTRATION RATE > 60.0 (>45); GLUCOSE, FASTING 102 MG/DL (70-100); POTASSIUM SERUM 4.1 MEQ/L (3.5-5.1); SALICYLATE LEVEL 4.4 MG/DL (5.0-30.0); SODIUM LEVEL 142 MEQ/L (136-145); TOTAL PROTEIN 7.1 GM/DL (6.4-8.2); TROPONIN I < 0.02 NG/ML (< 0.10)
[2018-03-08 19:03] LABS: ACETAMINOPHEN LEVEL < 2.0 UG/ML (10.0-30.0); CK-MB VALUE MASS < 1.0 NG/ML (<3.6); ETHYL ALCOHOL (ETHANOL) < 0.003 % (0.000-0.010); MB/CK RELATIVE INDEX 1.72 (< OR =4)
[2018-03-08 19:53] LABS: KETONE, URINE AUTO RFX NEGATIVE (NEGATIVE); LEUKOCYTE ESTERASE UR AUTO RFX NEGATIVE (NEGATIVE); NITRITE, URINE AUTO RFX NEGATIVE (NEGATIVE); RBC, URINE AUTO RFX 3 /HPF (0-3); SPECIFIC GRAVITY UR AUTO RFX 1.011 (1.002-1.035); SQUAM EPITHELIAL CELL UR AURFX 0 /HPF (0-6); WBC, URINE AUTO RFX 0 /HPF (0-3)
[2018-03-08 20:15] LABS: AMPHETAMINES LEVEL URINE NEGATIVE (NEGATIVE); BARBITURATES URINE NEGATIVE (NEGATIVE); BENZODIAZEPINES URINE POSITIVE (NEGATIVE); CANNABINOIDS URINE NEGATIVE (NEGATIVE); COCAINE METABOLITE URINE NEGATIVE (NEGATIVE); METHADONE URINE NEGATIVE (NEGATIVE); OPIATES URINE NEGATIVE (NEGATIVE); PHENCYCLIDINE URINE NEGATIVE (NEGATIVE)
== END 2018-03-08 20:47 | disposition home or self-care (01) ==
LOC: M ED 17:20
DX: R53.81 Other malaise (principal); R53.83 Other fatigue; G89.29 Other chronic pain; M54.9 Dorsalgia, unspecified; F17.200 Nicotine dependence, unspecified, uncomplicated; Z88.8 Allergy status to other drugs, medicaments and biological substances; Z79.899 Other long term (current) drug therapy
CPT/HCPCS: 71046

== ENCOUNTER → 2018-05-11 | Outpatient (CLI) | payer OTHER | LOC: M PAIN 14:30 | DX: G57.02 Lesion of sciatic nerve, left lower limb (principal); M46.08 Spinal enthesopathy, sacral and sacrococcygeal region; M96.1 Postlaminectomy syndrome, not elsewhere classified; M46.1 Sacroiliitis, not elsewhere classified; F41.9 Anxiety disorder, unspecified; F32.9 Major depressive disorder, single episode, unspecified; G47.00 Insomnia, unspecified; F17.210 Nicotine dependence, cigarettes, uncomplicated; Z79.899 Other long term (current) drug therapy; Z88.8 Allergy status to other drugs, medicaments and biological substances | CPT/HCPCS: G0463 ==

== ENCOUNTER 2018-05-27 08:01 | Day surgery (SDC) | payer MEDICARE, MEDICAID ==
[2018-05-27] MEDS: LIDOCAINE 1% SDV 5 ML VIAL As Ordered (06:42)
[~2018-05-27 08:01] MED LIST changes: +ACETAMINOPHEN 325 MG TAB PO; -BUPIVACAINE HCL 0.25% 30 ML VIAL As Ordered; -ISOVUE-M 300 61% 15ML VIAL (Q9967) As Ordered; -LIDOCAINE 1% SDV INJ 30 ML VIAL As Ordered; +PHENYLEPHRINE HCL 10 % OPHTH. SOL 5ML OD; -TRIAMCINOLONE ACETONIDE SUSP 40 MG/ML VIAL (J3301) As Ordered
[2018-05-27] MEDS: LIDOCAINE 3.5 % 1ML OPHTH TOPICAL GEL OU (08:40)
[2018-05-27] MEDS: PHENYLEPHRINE 2.5% OPHTH SOL 2ML OD (08:41)
[2018-05-27] MEDS: CYCLOPENTOLATE 2% OPHTH SOLN 2ML BTL OD (08:41)
[2018-05-27] MEDS: TROPICAMIDE 1% OPHTH SOLN 2ML OD (08:41)
[2018-05-27] MEDS: OFLOXACIN 0.3 % (OCUFLOX) OPTH SOL 5ML OD (08:41)
[2018-05-27] MEDS: MOXIFLOXACIN IN BSS 0.25MG/0.25ML INTRACAMERAL INJ (OR EYE ONLY)(J2280) As Ordered (10:59)
[2018-05-27] MEDS: POVIDONE-IODINE 5% OPHTH PREP SOL 30ML As Ordered (10:59)
[2018-05-27] MEDS: BSS with VANC/TOB/EPI for EYE CASES IR (10:59)
[2018-05-27] MEDS: HEALON DUET (HEALON 10MG/ML 0.55ML & HEALON ENDOCOAT 30MG/ML 0.85ML) As Ordered (10:59)
[2018-05-27] MEDS: TRIAMCINOLONE PRES FR 40 MG/ML 1ML(TRIESENCE)(OR EYE ONLY)(J3300 PER 1MG) As Ordered (10:59)
[2018-05-27] MEDS ORDERED: AcetaZOLAMIDE 500 MG ER CAP As Ordered (11:20)
[2018-05-27] MEDS ORDERED: ONDANSETRON 4MG/2ML VIAL (J2405) IV (12:00)
[2018-05-27] MEDS ORDERED: TRIMETHOBENZAMIDE 300 MG CAP PO (12:00)
[2018-05-27] MEDS ORDERED: AcetaZOLAMIDE 500 MG ER CAP PO (12:00)
== END 2018-05-27 12:15 | disposition home or self-care (01) ==
LOC: M SDC 08:01
DX: H26.9 Unspecified cataract (principal); K21.9 Gastro-esophageal reflux disease without esophagitis; K44.9 Diaphragmatic hernia without obstruction or gangrene; F41.9 Anxiety disorder, unspecified; Z79.899 Other long term (current) drug therapy
CPT/HCPCS: 66984

== ENCOUNTER 2018-06-03 12:25 | Day surgery (SDC) | payer MEDICARE, MEDICAID ==
[~2018-06-03 12:25] MED LIST changes: -MIDAZOLAM INJ 2 MG/2 ML VIAL (J2250) As Ordered; -PHENYLEPHRINE HCL 10 % OPHTH. SOL 5ML OD; -fentaNYL 100 MCG/2 ML INJECTION (J3010) As Ordered
[2018-06-03] MEDS: OFLOXACIN 0.3 % (OCUFLOX) OPTH SOL 5ML OS (14:07)
[2018-06-03] MEDS: LIDOCAINE 3.5 % 1ML OPHTH TOPICAL GEL OU (14:07)
[2018-06-03] MEDS: PHENYLEPHRINE 2.5% OPHTH SOL 2ML OS (14:08)
[2018-06-03] MEDS: TROPICAMIDE 1% OPHTH SOLN 2ML OS (14:08)
[2018-06-03] MEDS: CYCLOPENTOLATE 2% OPHTH SOLN 2ML BTL OS (14:08)
[2018-06-03] MEDS ORDERED: fentaNYL 100 MCG/2 ML INJECTION (J3010) As Ordered (14:15)
[2018-06-03] MEDS ORDERED: MIDAZOLAM INJ 2 MG/2 ML VIAL (J2250) As Ordered (14:16)
[2018-06-03] MEDS: LIDOCAINE 1% SDV 5 ML VIAL As Ordered (16:18)
[2018-06-03] MEDS: HEALON DUET (HEALON 10MG/ML 0.55ML & HEALON ENDOCOAT 30MG/ML 0.85ML) As Ordered (16:18)
[2018-06-03] MEDS: POVIDONE-IODINE 5% OPHTH PREP SOL 30ML As Ordered (16:18)
[2018-06-03] MEDS: MOXIFLOXACIN IN BSS 0.25MG/0.25ML INTRACAMERAL INJ (OR EYE ONLY)(J2280) As Ordered (16:18)
[2018-06-03] MEDS: BSS with VANC/TOB/EPI for EYE CASES IR (16:18)
[2018-06-03] MEDS: PHENYLEPHRINE HCL 10 % OPHTH. SOL 5ML OS (16:19)
[2018-06-03] MEDS: TRIAMCINOLONE PRES FR 40 MG/ML 1ML(TRIESENCE)(OR EYE ONLY)(J3300 PER 1MG) As Ordered (16:19)
[2018-06-03] MEDS ORDERED: AcetaZOLAMIDE 500 MG ER CAP As Ordered (16:39)
[2018-06-03] MEDS: AcetaZOLAMIDE 500 MG ER CAP PO (16:40)
[2018-06-03] MEDS ORDERED: TRIMETHOBENZAMIDE 300 MG CAP PO (16:45)
== END 2018-06-03 16:50 | disposition home or self-care (01) ==
LOC: M SDC 12:25
DX: H26.9 Unspecified cataract (principal); K44.9 Diaphragmatic hernia without obstruction or gangrene; K21.9 Gastro-esophageal reflux disease without esophagitis; M54.9 Dorsalgia, unspecified; F41.9 Anxiety disorder, unspecified; T88.59XD Other complications of anesthesia, subsequent encounter; Z88.8 Allergy status to other drugs, medicaments and biological substances; Z79.899 Other long term (current) drug therapy; Z78.0 Asymptomatic menopausal state; Z72.0 Tobacco use
CPT/HCPCS: 66984

== ENCOUNTER → 2018-07-10 | Outpatient (CLI) | payer OTHER | LOC: M PAIN 09:30 | DX: M79.10 Myalgia, unspecified site (principal); G57.02 Lesion of sciatic nerve, left lower limb; G47.00 Insomnia, unspecified; F41.9 Anxiety disorder, unspecified; M79.671 Pain in right foot; M79.672 Pain in left foot; F17.210 Nicotine dependence, cigarettes, uncomplicated; F32.9 Major depressive disorder, single episode, unspecified; M96.1 Postlaminectomy syndrome, not elsewhere classified; Z79.899 Other long term (current) drug therapy; Z98.49 Cataract extraction status, unspecified eye; Z88.6 Allergy status to analgesic agent | CPT/HCPCS: G0463 ==

== ENCOUNTER → 2018-08-11 | Outpatient (CLI) | payer OTHER | LOC: M PAIN 12:45 | DX: M79.18 Myalgia, other site (principal); G57.02 Lesion of sciatic nerve, left lower limb; G47.00 Insomnia, unspecified; F41.9 Anxiety disorder, unspecified; F32.9 Major depressive disorder, single episode, unspecified; F17.210 Nicotine dependence, cigarettes, uncomplicated; Z79.899 Other long term (current) drug therapy; Z88.8 Allergy status to other drugs, medicaments and biological substances | CPT/HCPCS: G0463 ==

== ENCOUNTER → 2018-08-31 | Outpatient (CLI) | payer OTHER ==
[~2018-08-31] MED LIST changes: -ACETAMINOPHEN 325 MG TAB PO; +BUPIVACAINE HCL 0.25% 30 ML VIAL As Ordered; +ISOVUE-M 300 61% 15ML VIAL (Q9967) As Ordered; +LIDOCAINE 1% SDV INJ 30 ML VIAL As Ordered; +MIDAZOLAM INJ 2 MG/2 ML VIAL (J2250) As Ordered; +TRIAMCINOLONE ACETONIDE SUSP 40 MG/ML VIAL (J3301) As Ordered; +fentaNYL 100 MCG/2 ML INJECTION (J3010) As Ordered
== END ==
LOC: M PAIN 10:30
DX: M79.18 Myalgia, other site (principal); G57.02 Lesion of sciatic nerve, left lower limb; G47.00 Insomnia, unspecified; F41.9 Anxiety disorder, unspecified; F32.9 Major depressive disorder, single episode, unspecified; F17.210 Nicotine dependence, cigarettes, uncomplicated; Z79.899 Other long term (current) drug therapy; Z88.8 Allergy status to other drugs, medicaments and biological substances
CPT/HCPCS: J3301

== ENCOUNTER → 2018-09-18 | Outpatient (CLI) | payer OTHER ==
[~2018-09-18] MED LIST changes: +/ESOM40CA OR; +AMBI10TA PO; +AMIT25TA10 PO; +AZEL0.055; +BENA25TA4 PO; -BUPIVACAINE HCL 0.25% 30 ML VIAL As Ordered; +CALCIUM CITRATE PO; +CELE10TA PO; +CELE20TA OR; +FLECTOR1.3 TOP; +FLON1SPR; +IBUP800T OR; -ISOVUE-M 300 61% 15ML VIAL (Q9967) As Ordered; -LIDOCAINE 1% SDV INJ 30 ML VIAL As Ordered; +LYRI75CA OR; +MELA; -MIDAZOLAM INJ 2 MG/2 ML VIAL (J2250) As Ordered; +MULT1TAB10 PO; +MULTIVIT OR; +PERCOCET PO; +SENO8.6T9 PO; +SLEEP AID OTC OR; +SOMA350T OR; +SOMA350T PO; +TRAM37.5 PO; +TRAM50TA2 OR; +TRAZ50TA OR; -TRIAMCINOLONE ACETONIDE SUSP 40 MG/ML VIAL (J3301) As Ordered; +TYLE1TAB5 PO; +VALI5TAB OR; +VIT D 2000 OR; +VITA50005 PO; +VITA500T OR; +XANA1TAB2 OR; +[UNRECOGNIZED DRUG - MIXTURE] TOP; +citrical PO; -fentaNYL 100 MCG/2 ML INJECTION (J3010) As Ordered; +melatonin PO
--- NOTE | 2018-10-06 23:58 | ECWPNPC ---
PATIENT NAME: MARIMAR JARVIS : 1955 GENDER: FEMALE VISIT DATE: 09/18/2018 DISCHARGE DATE: 09/18/18 1321 VISIT LOCKED DATE TIME: PHYSICIAN: TREY QUINTANILLA MD RESOURCE: TREY QUINTANILLA MD REASON FOR APPOINTMENT 1. F/U W/C HISTORY OF PRESENT ILLNESS DEPRESSION SCREENING: PHQ-2 IN LAST TWO WEEKS HAVE YOU BEEN BOTHERED BY LITTLE INTEREST OR PLEASURE IN DOING THINGSNO FEELING DOWN, DEPRESSED, OR HOPELESSNO HISTORY OF PRESENT ILLNESS: PAIN THE PATIENT DESCRIBES THE PAIN... 63 YEAR OLD FEMALE PATIENT WITH A HISTORY OF CHRONIC LOW BACK PAIN. PATIENT DESCRIBES THE PAIN ACHING, TENDER, SORE, AND HAVING IT ALL THE TIME WITH A PAIN SCORE OF 2-6/10 DEPENDING ON PHYSICAL ACTIVITY. THE PATIENT RECENTLY HAD A PIRIFORMIS BLOCK DONE ON 08/31/18 AND REPORTS HAVING OVER 50% PAIN RELIEF WITH IMPROVEMENT IN MOBILITY AND FUNCTIONALITY. PATIENT DENIES UNEXPLAINABLE WEIGHT LOSS, FEVER, CHILLS, NEW CHANGES ON HER URINARY OR BOWEL CONTROL. FALL RISK SCREENING: SCREENING :NO FALLS IN THE PAST YEAR CURRENT MEDICATIONS TAKING CELEXA 40 MG TABLET 1 TABLET ORALLY TWICE DAILY, NOTES: 08/31/18 0700 NOT-TAKING XANAX 1 MG TABLET 1 TABLET ORALLY TWICE A DAY NEEDED NOT-TAKING IBUPROFEN 800 MG TABLET 1 TABLET WITH FOOD OR MILK ORALLY EVERY 6 HOURS NEEDED FOR PAIN MDD3, NOTES: NONE RECENT MEDICATION LIST REVIEWED AND RECONCILED WITH THE PATIENT PAST MEDICAL HISTORY INSOMNIA BILATERAL FOOT PAIN ANXIETY DEPRESSION POST LAMINECTOMY PAIN ALLERGIES NAPROXEN: ORBITAL PRESSURE: ALLERGY SURGICAL HISTORY LAMINECTOMY 07/16 OR C SECTION C SECTION CATARACTS SURGERY JUN 2018 FAMILY HISTORY FATHER: MOTHER: PARENTS DUE TO MVA. SOCIAL HISTORY GENERAL: TOBACCO USE ARE YOU A:CURRENT SMOKER ARE YOU INTERESTED IN QUITTING?NOT READY TO QUIT COUNSELED THE PATIENT ON SMOKING EFFECTS, EDUCATION [id number]/14/2018 HOW MANY CIGARETTES A DAY DO YOU SMOKE?6-10 HOW SOON AFTER YOU WAKE UP DO YOU SMOKE YOUR FIRST CIGARETTE?6-30 MIN HOW OFTEN DO YOU SMOKE CIGARETTES?EVERY DAY PATIENT COUNSELED ON THE DANGERS OF TOBACCO USE AND URGED TO QUIT:09/18/2018 ALCOHOL SCREENING DID YOU HAVE A DRINK CONTAINING ALCOHOL IN THE PAST YEAR? YES , POINTS 0 , INTERPRETATION NEGATIVE . RECREATIONAL DRUG USE DENIES. CAFFEINE CAFFEINE USE?NO QUAKER [id number] SCIENTOLOGIST LANGUAGE LANGUAGES SPOKEN:LIBERIAN EDUCATION LEVEL OF EDUCATION:COLLEGE LEARNING BARRIERS / SPECIAL NEEDS CHANGE FROM LAST VISIT?NO BARRIERS TO LEARNING?NO HEARING IMPAIRED?NO VISION IMPAIRED?YES :CORRECTIVE LENSES COGNITIVELY IMPAIRED?NO READINESS TO LEARN?YES LEARNING PREFERENCES?YES :DEMONSTRATION/VERBAL INSTRUCTION LEARNING CAPABILITIES PRESENT?YES EMOTIONAL BARRIERS?NO SPECIAL DEVICES?NO VETERINARY ATTENDANT NEEDED?NO DOMESTIC VIOLENCE DO YOU FEEL SAFE IN YOUR ENVIRONMENT?YES OCCUPATION: RETIRED. DIET: REGULAR. EXERCISE: NO REGULAR EXERCISE. MARITAL STATUS: SINGLE. OTHERS AT HOME: NONE. PAIN CLINIC PFS, CLERGY, PUBLIC HEALTH REFERRALS PFS REFERRAL NEEDED?NO CLERGY REFERRAL NEEDED?NO PUBLIC HEALTH REFERRAL NEEDED?NO WAS THE PROVIDER NOTIFIED OF ANY PERTINENT INFO?YES HAS THE PATIENT BEEN EDUCATED REGARDING HIS/HER PLAN OF CARE?YES HAS THE PATIENT BEEN EDUCATED REGARDING PAIN, THE RISK FOR PAIN, THE IMPORTANCE OF EFFECTIVE PAIN MANAGEMENT, AND THE PAIN ASSESSMENT PROCESS?YES ADVANCE DIRECTIVE ADVANCE DIRECTIVE DISCUSSED WITH PATIENT:YES PT HAS HEALTH CARE PROXY AT HER BUDDHIST REVIEWED WITH PT 08/31/18 1141 BVRVIEWED WITH PATIENT 09/18/18 1200 LAS. HOSPITALIZATION/MAJOR DIAGNOSTIC PROCEDURE SURGERY 07/16 OR REVIEW OF SYSTEMS REVIEWED BY: PROVIDER: TREY QUINTANILLA MD . CONSTITUTIONAL: ANY CHANGE IN YOUR MEDICAL CONDITION? NO . CHILLS NO . FEVER NO . INFECTION: DO YOU HAVE NEW INFECTIONS? NO . DO YOU HAVE HISTORY OF MRSA? NO . MUSCULOSKELETAL: ANY NEW PATTERNS OF PAIN OR NUMBNESS? NO . GASTROENTEROLOGY: ANY NEW CHANGE IN BOWEL CONTROL? NO . GENITOURINARY: ANY NEW CHANGE IN BLADDER CONTROL? NO . IS THERE A CHANCE YOU COULD BE ? NO . HEMATOLOGY/LYMPH: DO YOU TAKE ANY BLOOD THINNERS? (FOR EXAMPLE- COUMADIN, PLAVIX, AGGRENOX, PLATEL, PRADAXA, OR XARELTO) NO . WHEN WAS YOUR LAST DOSE? DATE: TIME: . NEUROLOGY: HAVE YOU FALLEN IN THE PAST 6 MONTHS? NO . ANY NEW EXTREMITY NUMBNESS OR WEAKNESS? NO . CARDIOLOGY: DO YOU HAVE A PACEMAKER OR DEFIBRILLATOR? NO . RESPIRATORY: HAVE YOU BEEN SICK IN THE PAST WEEK? NO . FEVER NO . FLU LIKE SYMPTOMS? NO . COUGH NO . INTEGUMENTARY: DO YOU HAVE ANY RASHES OR OPEN SORES? NO . ALLERGIC/IMMUNO: ARE YOU ALLERGIC TO SHELLFISH OR IV DYE? NO . ANY NEW ALLERGIES? NO . PSYCHIATRIC: DO YOU HAVE THOUGHTS OF HURTING YOURSELF OR SOMEONE ELSE? NO . ARE YOU ABUSED, NEGLECTED, OR IN AN UNSAFE ENVIRONMENT? NO . ENDOCRINOLOGY: ARE YOU DIABETIC? NO . OTHER: DO YOU NEED ANY PRESCRIPTIONS? NO . IF YES, PLEASE LIST: ____ . ANY NEW PROBLEMS WITH YOUR MEDICATIONS? NO . WHEN DID YOU LAST EAT? ____ . WHEN DID YOU LAST DRINK? ____ . WHAT DID YOU LAST DRINK? ____ . NAME OF PERSON DRIVING YOU HOME? ____ . DO YOU HAVE ANY OTHER QUESTIONS OR CONCERNS NO . VITAL SIGNS WT 148.2 LBS, HT 66 IN, BMI 23.92 INDEX, BP 131/64 MM HG, HR 79 /MIN, RR 18 /MIN, TEMP 96.7 F, OXYGEN SAT % 96%, SAFE IN ENV? (Y/N) YES, NA INITIALS SC 11:51, REVIEWED BY: LINUS. EXAMINATION GENERAL EXAMINATION: PATIENT IS ALERT O X 3 AND COOPERATIVE. TENDERNESS AND PRESSURE OVER LOW BACK AND BUTTOCKS AREA. MRI OF THE LUMBAR SPINE DONE ON 04/29/15 SHOWS FACET ARTHROPATHY CHANGES AT MULTIPLE LEVELS AND STATUS POST LAMINECTOMY AT L3-4. 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 JARVIS' PAIN MANAGEMENT CASE. DUE TO THE SUCCESS OF THE PIRIFORMIS BLOCK, THE PATIENT AND I BOTH AGREED TO HOLD INJECTION INTERVENTIONS AT THIS TIME. THE PATIENT WILL FOLLOW UP WITH ME IN 2 MONTHS. INSTRUCTIONS WERE GIVEN, QUESTIONS WERE ANSWERED, PATIENT REPORTS UNDERSTANDING AND AGREES WITH THE PLAN. I, CARLEY MONTANA, DOCUMENTED THE ABOVE INFORMATION ACTING A SCRIBE FOR DR. QUINTANILLA. I HAVE REVIEWED THE ABOVE DOCUMENT, WRITTEN BY CARLEY MONTANA SCRIBManuel AND I VERIFY THAT IT IS ACCURATE. PROCEDURE CODES FA211 ESTABILISHED PATIENT [facility] FACILITY CHARGE G8427 CURRENT MEDS W/DOSAGES DOCUMENTED G8730 PAIN ASSESS POS TOOL F/U PLAN DOC DISPOSITION & COMMUNICATION FOLLOW UP 2 MONTHS ELECTRONICALLY SIGNED BY TREY QUINTANILLA MD, MD ON 10/06/2018 AT 05:38 PM EST DISCLAIMER : THIS IS A VISIT SUMMARY EXTRACTED FROM THE [employer] CHART. IT IS NOT A COPY OF THE [employer] PROGRESS NOTE. MTDD
== END ==
LOC: M PAIN 12:00
PROVIDERS: ATTEND Anesthesiology
DX: M96.1 Postlaminectomy syndrome, not elsewhere classified (principal); G57.02 Lesion of sciatic nerve, left lower limb; G47.00 Insomnia, unspecified; F41.9 Anxiety disorder, unspecified; F32.9 Major depressive disorder, single episode, unspecified; M79.671 Pain in right foot; M79.672 Pain in left foot; F17.210 Nicotine dependence, cigarettes, uncomplicated; Z79.899 Other long term (current) drug therapy; Z98.49 Cataract extraction status, unspecified eye

== ENCOUNTER → 2018-11-23 | Outpatient (CLI) | payer OTHER ==
--- NOTE | 2018-12-08 01:40 | ECWPNPC ---
PATIENT NAME: MARIMAR JARVIS : 1955 GENDER: FEMALE VISIT DATE: 11/23/2018 DISCHARGE DATE: 11/23/18 1023 VISIT LOCKED DATE TIME: PHYSICIAN: TREY QUINTANILLA MD RESOURCE: TREY QUINTANILLA MD REASON FOR APPOINTMENT 1. F/U BACK PAIN HISTORY OF PRESENT ILLNESS HISTORY OF PRESENT ILLNESS: PAIN THE PATIENT DESCRIBES THE PAIN... 63 YEAR OLD FEMALE PATIENT WITH A HISTORY OF CHRONIC LOW BACK PAIN. THE PATIENT DESCRIBES THE PAIN ACHING, BURNING, SORE, TENDER, AND CONTINUOUS WITH A PAIN SCORE OF 7-10/10 DEPENDING ON PHYSICAL ACTIVITY. 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 THE PATIENT SAYS HER PAIN IS SEVERE AND SHE HAS DIFFICULTY DOING ANY ACTIVITY SUCH COOKING AND CLEANING HER HOUSE. THE PATIENT SAYS THAT SHE HAS DIFFICULTY SLEEPING DUE TO THIS PAIN. THE PATIENT HAS TRIED PHYSICAL THERAPY IN THE PAST, BUT SAYS IT DID NOT HELP. THE PATIENT HAS HAD INJECTIONS IN THE PAST AND REPORTS HAVING GOOD PAIN RELIEF FOR A SIGNIFICANT AMOUNT OF TIME AFTER THE INJECTIONS. PATIENT DENIES UNEXPLAINABLE WEIGHT LOSS, FEVER, CHILLS, NEW CHANGES ON HER URINARY OR BOWEL CONTROL. FALL RISK SCREENING: SCREENING : NO FALLS IN THE PAST YEAR. CURRENT MEDICATIONS TAKING CELEXA 40 MG TABLET 1 TABLET ORALLY TWICE DAILY TAKING FLONASE 50 MCG/ACT SUSPENSION 1 SPRAY IN EACH NOSTRIL NASALLY ONCE A DAY TAKING AZELASTINE HCL 0.1 % SOLUTION 1 PUFF IN EACH NOSTRIL NASALLY TWICE A DAY NOT-TAKING XANAX 1 MG TABLET 1 TABLET ORALLY TWICE A DAY NEEDED NOT-TAKING IBUPROFEN 800 MG TABLET 1 TABLET WITH FOOD OR MILK ORALLY EVERY 6 HOURS NEEDED FOR PAIN MDD3, NOTES: NONE RECENT MEDICATION LIST REVIEWED AND RECONCILED WITH THE PATIENT PAST MEDICAL HISTORY INSOMNIA BILATERAL FOOT PAIN ANXIETY DEPRESSION POST LAMINECTOMY PAIN ALLERGIES NAPROXEN: ORBITAL PRESSURE: ALLERGY SURGICAL HISTORY LAMINECTOMY 07/16 OR 12 C SECTION C SECTION CATARACTS SURGERY JUN 2018 FAMILY HISTORY FATHER: MOTHER: PARENTS DUE TO MVA. SOCIAL HISTORY GENERAL: TOBACCO USE ARE YOU A:CURRENT SMOKER ARE YOU INTERESTED IN QUITTING?NOT READY TO QUIT COUNSELED THE PATIENT ON SMOKING EFFECTS, EDUCATION [id number]/14/2018 HOW MANY CIGARETTES A DAY DO YOU SMOKE?6-10 HOW SOON AFTER YOU WAKE UP DO YOU SMOKE YOUR FIRST CIGARETTE?6-30 MIN HOW OFTEN DO YOU SMOKE CIGARETTES?EVERY DAY PATIENT COUNSELED ON THE DANGERS OF TOBACCO USE AND URGED TO QUIT:11/23/2018 ALCOHOL SCREENING DID YOU HAVE A DRINK CONTAINING ALCOHOL IN THE PAST YEAR? YES , POINTS 0 , INTERPRETATION NEGATIVE . RECREATIONAL DRUG USE DENIES. CAFFEINE CAFFEINE USE?NO CAODAISM [id number] CHRISTIANITY LANGUAGE LANGUAGES SPOKEN:MALTESE EDUCATION LEVEL OF EDUCATION:COLLEGE LEARNING BARRIERS / SPECIAL NEEDS CHANGE FROM LAST VISIT?NO BARRIERS TO LEARNING?NO HEARING IMPAIRED?NO VISION IMPAIRED?YES :CORRECTIVE LENSES COGNITIVELY IMPAIRED?NO READINESS TO LEARN?YES LEARNING PREFERENCES?YES :DEMONSTRATION/VERBAL INSTRUCTION LEARNING CAPABILITIES PRESENT?YES EMOTIONAL BARRIERS?NO SPECIAL DEVICES?NO QUALITY REP NEEDED?NO DOMESTIC VIOLENCE DO YOU FEEL SAFE IN YOUR ENVIRONMENT?YES OCCUPATION: RETIRED. DIET: REGULAR. EXERCISE: NO REGULAR EXERCISE. MARITAL STATUS: SINGLE. OTHERS AT HOME: NONE. PAIN CLINIC PFS, CLERGY, PUBLIC HEALTH REFERRALS PFS REFERRAL NEEDED?NO CLERGY REFERRAL NEEDED?NO PUBLIC HEALTH REFERRAL NEEDED?NO WAS THE PROVIDER NOTIFIED OF ANY PERTINENT INFO?YES HAS THE PATIENT BEEN EDUCATED REGARDING HIS/HER PLAN OF CARE?YES HAS THE PATIENT BEEN EDUCATED REGARDING PAIN, THE RISK FOR PAIN, THE IMPORTANCE OF EFFECTIVE PAIN MANAGEMENT, AND THE PAIN ASSESSMENT PROCESS?YES ADVANCE DIRECTIVE ADVANCE DIRECTIVE DISCUSSED WITH PATIENT:YES PT HAS HEALTH CARE PROXY AT HER SIKHISM REVIEWED WITH PT 08/31/18 1141 BVRVIEWED WITH PATIENT 09/18/18 1200 LAS. HOSPITALIZATION/MAJOR DIAGNOSTIC PROCEDURE SURGERY 07/16 OR REVIEW OF SYSTEMS REVIEWED BY: PROVIDER: TREY QUINTANILLA MD . CONSTITUTIONAL: ANY CHANGE IN YOUR MEDICAL CONDITION? NO . CHILLS NO . FEVER NO . INFECTION: DO YOU HAVE NEW INFECTIONS? NO . DO YOU HAVE HISTORY OF MRSA? NO . MUSCULOSKELETAL: ANY NEW PATTERNS OF PAIN OR NUMBNESS? NO . GASTROENTEROLOGY: ANY NEW CHANGE IN BOWEL CONTROL? NO . GENITOURINARY: ANY NEW CHANGE IN BLADDER CONTROL? NO . IS THERE A CHANCE YOU COULD BE ? NO . HEMATOLOGY/LYMPH: DO YOU TAKE ANY BLOOD THINNERS? (FOR EXAMPLE- COUMADIN, PLAVIX, AGGRENOX, PLATEL, PRADAXA, OR XARELTO) NO . WHEN WAS YOUR LAST DOSE? DATE: TIME: . NEUROLOGY: HAVE YOU FALLEN IN THE PAST 12 MONTHS? NO . ANY NEW EXTREMITY NUMBNESS OR WEAKNESS? NO . CARDIOLOGY: DO YOU HAVE A PACEMAKER OR DEFIBRILLATOR? NO . RESPIRATORY: HAVE YOU BEEN SICK IN THE PAST WEEK? NO . FEVER NO . FLU LIKE SYMPTOMS? NO . COUGH NO . INTEGUMENTARY: DO YOU HAVE ANY RASHES OR OPEN SORES? NO . ALLERGIC/IMMUNO: ARE YOU ALLERGIC TO IV DYE? NO . ANY NEW ALLERGIES? NO . PSYCHIATRIC: DO YOU HAVE THOUGHTS OF HURTING YOURSELF OR SOMEONE ELSE? NO . ARE YOU ABUSED, NEGLECTED, OR IN AN UNSAFE ENVIRONMENT? NO . ENDOCRINOLOGY: ARE YOU DIABETIC? NO . OTHER: DO YOU NEED ANY PRESCRIPTIONS? NO . IF YES, PLEASE LIST: ____ . ANY NEW PROBLEMS WITH YOUR MEDICATIONS? NO . WHEN DID YOU LAST EAT? ____ . WHEN DID YOU LAST DRINK? ____ . WHAT DID YOU LAST DRINK? ____ . NAME OF PERSON DRIVING YOU HOME? ____ . DO YOU HAVE ANY OTHER QUESTIONS OR CONCERNS NO . VITAL SIGNS WT 149.4 LBS, HT 66 IN, BMI 24.11 INDEX, BP 112/56 MM HG, HR 72 /MIN, RR 18 /MIN, TEMP 97.7 F, OXYGEN SAT % 94%, SAFE IN ENV? (Y/N) Y, NA INITIALS 0904, REVIEWED BY: FARHAN. EXAMINATION GENERAL EXAMINATION: PATIENT IS ALERT O X 3 AND COOPERATIVE. SEVERE TENDERNESS OVER THE LOW BACK AND COCCYX. ASSESSMENTS SPRAIN OF SACROCOCCYGEAL LIGAMENT, INITIAL ENCOUNTER - S33.8XXA (PRIMARY) COCCYDYNIA - M53.3 TREATMENT SPRAIN OF SACROCOCCYGEAL LIGAMENT, INITIAL ENCOUNTER CLINICAL NOTES: WE DISCUSSED SEVERAL ISSUES WITH MRS. JARVIS'S PAIN MANAGEMENT CASE. DUE TO THE INFLAMMATION OF THE SACROCOCCYGEAL LIGAMENT, I WOULD LIKE TO MOVE FORWARD WITH A BILATERAL SACROCOCCYGEAL JOINT INJECTION AT THIS TIME. WE DISCUSSED THE BENEFITS, RISKS, AND ALTERNATIVES OF THE INJECTION AND THE PATIENT WOULD LIKE TO PROCEED. THE PATIENT WOULD LIKE TO MOVE FORWARD WITH IV SEDATION DUE TO PAIN AND ANXIETY ASSOCIATED WITH THE PROCEDURE. I WILL START THE PATIENT ON TORADOL AND SOMA SHORT TERM FOR HER SEVERE PAIN UNTIL HER INJECTION. THE PATIENT WILL FOLLOW UP IN 10 DAYS. INSTRUCTIONS WERE GIVEN, QUESTIONS WERE ANSWERED, PATIENT REPORTS UNDERSTANDING AND AGREES WITH THE PLAN. I, QUAN CHESTER, DOCUMENTED THE ABOVE INFORMATION ACTING A SCRIBE FOR DR. QUINTANILLA. I HAVE REVIEWED THE ABOVE DOCUMENT, WRITTEN BY QUAN ODOM AND I VERIFY THAT IT IS ACCURATE. OTHERS START KETOROLAC TROMETHAMINE TABLET, 10 MG, 1 TABLET WITH FOOD OR MILK NEEDED, ORALLY FOR PAIN, EVERY 8 HRS MDD3, 5 DAY(S), 15, REFILLS 0 START TRAMADOL HCL TABLET, 50 MG, 1 TABLET NEEDED, ORALLY, DAILY FOR PAIN MDD1, 10 DAYS, 10, REFILLS 0 START SOMA TABLET, 350 MG, 1 TABLET NEEDED, ORALLY FOR SPASMS AND PAIN, BEFORE BEDTIME, 10 DAYS, 10, REFILLS 0 PROCEDURES PN WORKMANS' COMP OPINION IN YOUR OPINION, WAS THE INCIDENT THAT THE PATIENT DESCRIBED THE COMPETENT MEDICAL CAUSE OF THIS INJURY/ILLNESS? YES ARE THE PATIENT'S COMPLAINTS CONSISTENT WITH HIS/HER HISTORY OF THE INJURY/ILLNESS? YES IS THE PATIENT'S HISTORY OF THE INJURY/ILLNESS CONSISTENT WITH YOUR OBJECTIVE FINDING? YES WHAT IS THE PERCENTAGE OF TEMPORARY IMPAIRMENT? TOTAL = 100% IS THE PATIENT WORKING? NO DOCTOR ON SITE: TREY SIERRA MD PROCEDURE CODES FA211 ESTABILISHED PATIENT [facility] FACILITY CHARGE G8427 CURRENT MEDS W/DOSAGES DOCUMENTED G8730 PAIN ASSESS POS TOOL F/U PLAN DOC DISPOSITION & COMMUNICATION FOLLOW UP 10 DAYS ELECTRONICALLY SIGNED BY TREY QUINTANILLA MD, ON 12/07/2018 AT 09:39 PM EST DISCLAIMER : THIS IS A VISIT SUMMARY EXTRACTED FROM THE [employer] CHART. IT IS NOT A COPY OF THE [employer] PROGRESS NOTE. MIKE
== END ==
LOC: M PAIN 08:45
PROVIDERS: ATTEND Anesthesiology
DX: M53.3 Sacrococcygeal disorders, not elsewhere classified (principal); S33 Dislocation and sprain of joints and ligaments of lumbar spine and pelvis; G89.29 Other chronic pain; F41.9 Anxiety disorder, unspecified; F32.9 Major depressive disorder, single episode, unspecified; M96.1 Postlaminectomy syndrome, not elsewhere classified; F17.210 Nicotine dependence, cigarettes, uncomplicated; Z79.899 Other long term (current) drug therapy; Z88.8 Allergy status to other drugs, medicaments and biological substances

== ENCOUNTER → 2018-12-03 | Outpatient (CLI) | payer OTHER ==
--- NOTE | 2018-12-12 23:17 | ECWPNPC ---
PATIENT NAME: MARIMAR JARVIS : 1955 GENDER: FEMALE VISIT DATE: 12/03/2018 DISCHARGE DATE: 12/03/18 1626 VISIT LOCKED DATE TIME: PHYSICIAN: TREY QUINTANILLA MD RESOURCE: TREY QUINTANILLA MD REASON FOR APPOINTMENT 1. PRE SEDATE W.C HISTORY OF PRESENT ILLNESS HISTORY OF PRESENT ILLNESS: PAIN THE PATIENT DESCRIBES THE PAIN... 63 YEAR OLD FEMALE PATIENT WITH A HISTORY OF CHRONIC LOW BACK PAIN. THE PATIENT DESCRIBES THE PAIN ACHING, BURNING, SORE, TENDER, AND CONTINUOUS WITH A PAIN SCORE OF 5-10/10 DEPENDING ON PHYSICAL ACTIVITY. 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 THE PATIENT SAYS SHE HAS DIFFICULTY DOING DAILY ACTIVITIES SUCH SLEEPING, COOKING, CLEANING, AND GETTING GROCERIES DUE TO THIS PAIN. THE PATIENT HAS TRIED PHYSICAL THERAPY IN THE PAST, BUT SAYS IT DID NOT HELP. PATIENT DENIES UNEXPLAINABLE WEIGHT LOSS, FEVER, CHILLS, NEW CHANGES ON HER URINARY OR BOWEL CONTROL. CURRENT MEDICATIONS TAKING KETOROLAC TROMETHAMINE 10 MG TABLET 1 TABLET WITH FOOD OR MILK NEEDED ORALLY FOR PAIN EVERY 8 HRS MDD3 TAKING TRAMADOL HCL 50 MG TABLET 1 TABLET NEEDED ORALLY DAILY FOR PAIN MDD1 TAKING SOMA 350 MG TABLET 1 TABLET NEEDED ORALLY FOR SPASMS AND PAIN BEFORE BEDTIME TAKING CELEXA 40 MG TABLET 1 TABLET ORALLY TWICE DAILY TAKING FLONASE 50 MCG/ACT SUSPENSION 1 SPRAY IN EACH NOSTRIL NASALLY ONCE A DAY TAKING AZELASTINE HCL 0.1 % SOLUTION 1 PUFF IN EACH NOSTRIL NASALLY TWICE A DAY NOT-TAKING XANAX 1 MG TABLET 1 TABLET ORALLY TWICE A DAY NEEDED NOT-TAKING IBUPROFEN 800 MG TABLET 1 TABLET WITH FOOD OR MILK ORALLY EVERY 6 HOURS NEEDED FOR PAIN MDD3, NOTES: NONE RECENT MEDICATION LIST REVIEWED AND RECONCILED WITH THE PATIENT PAST MEDICAL HISTORY INSOMNIA BILATERAL FOOT PAIN ANXIETY DEPRESSION POST LAMINECTOMY PAIN ALLERGIES NAPROXEN: ORBITAL PRESSURE: ALLERGY SURGICAL HISTORY LAMINECTOMY 07/16 OR 12 C SECTION C SECTION CATARACTS SURGERY JUN 2018 FAMILY HISTORY FATHER: MOTHER: PARENTS DUE TO MVA. SOCIAL HISTORY GENERAL: TOBACCO USE ARE YOU A:CURRENT SMOKER ARE YOU INTERESTED IN QUITTING?NOT READY TO QUIT COUNSELED THE PATIENT ON SMOKING EFFECTS, EDUCATION [id number]/14/2018 HOW MANY CIGARETTES A DAY DO YOU SMOKE?6-10 HOW SOON AFTER YOU WAKE UP DO YOU SMOKE YOUR FIRST CIGARETTE?6-30 MIN HOW OFTEN DO YOU SMOKE CIGARETTES?EVERY DAY PATIENT COUNSELED ON THE DANGERS OF TOBACCO USE AND URGED TO QUIT:11/23/2018 ALCOHOL SCREENING DID YOU HAVE A DRINK CONTAINING ALCOHOL IN THE PAST YEAR? YES , POINTS 0 , INTERPRETATION NEGATIVE . RECREATIONAL DRUG USE DENIES. CAFFEINE CAFFEINE USE?NO VOODOO [id number] [place] LANGUAGE LANGUAGES SPOKEN:BOLIVIAN EDUCATION LEVEL OF EDUCATION:COLLEGE LEARNING BARRIERS / SPECIAL NEEDS CHANGE FROM LAST VISIT?NO BARRIERS TO LEARNING?NO HEARING IMPAIRED?NO VISION IMPAIRED?YES :CORRECTIVE LENSES COGNITIVELY IMPAIRED?NO READINESS TO LEARN?YES LEARNING PREFERENCES?YES :DEMONSTRATION/VERBAL INSTRUCTION LEARNING CAPABILITIES PRESENT?YES EMOTIONAL BARRIERS?NO SPECIAL DEVICES?NO REPAIR ARMATURE WINDER NEEDED?NO DOMESTIC VIOLENCE DO YOU FEEL SAFE IN YOUR ENVIRONMENT?YES OCCUPATION: RETIRED. DIET: REGULAR. EXERCISE: NO REGULAR EXERCISE. MARITAL STATUS: SINGLE. OTHERS AT HOME: NONE. PAIN CLINIC PFS, CLERGY, PUBLIC HEALTH REFERRALS PFS REFERRAL NEEDED?NO CLERGY REFERRAL NEEDED?NO PUBLIC HEALTH REFERRAL NEEDED?NO WAS THE PROVIDER NOTIFIED OF ANY PERTINENT INFO?YES HAS THE PATIENT BEEN EDUCATED REGARDING HIS/HER PLAN OF CARE?YES HAS THE PATIENT BEEN EDUCATED REGARDING PAIN, THE RISK FOR PAIN, THE IMPORTANCE OF EFFECTIVE PAIN MANAGEMENT, AND THE PAIN ASSESSMENT PROCESS?YES ADVANCE DIRECTIVE ADVANCE DIRECTIVE DISCUSSED WITH PATIENT:YES PT HAS HEALTH CARE PROXY AT HER SCIENTOLOGY REVIEWED WITH PT 08/31/18 1141 BVRVIEWED WITH PATIENT 09/18/18 1200 LAS. HOSPITALIZATION/MAJOR DIAGNOSTIC PROCEDURE SURGERY 07/16 OR 12 REVIEW OF SYSTEMS REVIEWED BY: PROVIDER: TREY QUINTANILLA MD . VITAL SIGNS WT 149.4 LBS, HT 66 IN, BMI 24.11 INDEX, BP 123/62 MM HG, HR 60 /MIN, RR 18 /MIN, TEMP 97.7 F, OXYGEN SAT % 95%, NA INITIALS SC 15:05, REVIEWED BY: LS. EXAMINATION GENERAL EXAMINATION: PATIENT IS ALERT O X 3 AND COOPERATIVE. LUNGS CLEAR, TO AUSCULTATION. HEART: NO MURMURS OR GALLOPS; FACIAL CRANIAL NERVES ARE GROSSLY NORMAL. GOOD SYMMETRY OF FACIAL MUSCLE MOVEMENT. NORMAL VISUAL VELASCO. PATIENT HAS DIFFICULTY STANDING. ANTALGIC GAIT. TENDERNESS OVER THE LOW BACK AREA AND COCCYX. ASSESSMENTS COCCYDYNIA - M53.3 (PRIMARY) TREATMENT COCCYDYNIA CLINICAL NOTES: WE DISCUSSED SEVERAL ISSUES WITH MRS. JARVIS PAIN MANAGEMENT CASE. DUE TO THE COCCYDYNIA, I WOULD LIKE TO MOVE FORWARD WITH A SACROCOCCYGEAL LIGAMENT INJECTION AT THIS TIME. WE DISCUSSED THE BENEFITS, RISKS, AND ALTERNATIVES OF THE INJECTION AND THE PATIENT WOULD LIKE TO PROCEED. THE PATIENT WOULD LIKE TO MOVE FORWARD WITH IV SEDATION DUE TO PAIN AND ANXIETY ASSOCIATED WITH THE PROCEDURE. THE PATIENT WILL FOLLOW UP A FEW WEEKS AFTER THE INJECTION. INSTRUCTIONS WERE GIVEN, QUESTIONS WERE ANSWERED, PATIENT REPORTS UNDERSTANDING AND AGREES WITH THE PLAN. I, QUAN CHESTER, DOCUMENTED THE ABOVE INFORMATION ACTING A SCRIBE FOR DR. QUINTANILLA. I HAVE REVIEWED THE ABOVE DOCUMENT, WRITTEN BY QUAN KELLEYIBManuel AND I VERIFY THAT IT IS ACCURATE. PROCEDURES PN WORKMANS' COMP OPINION IN YOUR OPINION, WAS THE INCIDENT THAT THE PATIENT DESCRIBED THE COMPETENT MEDICAL CAUSE OF THIS INJURY/ILLNESS? YES ARE THE PATIENT'S COMPLAINTS CONSISTENT WITH HIS/HER HISTORY OF THE INJURY/ILLNESS? YES IS THE PATIENT'S HISTORY OF THE INJURY/ILLNESS CONSISTENT WITH YOUR OBJECTIVE FINDING? YES WHAT IS THE PERCENTAGE OF TEMPORARY IMPAIRMENT? TOTAL = 100% IS THE PATIENT WORKING? NO DOCTOR ON SITE: TREY SIERRA MD PROCEDURE CODES FA211 ESTABILISHED PATIENT [facility] FACILITY CHARGE G8427 CURRENT MEDS W/DOSAGES DOCUMENTED G8730 PAIN ASSESS POS TOOL F/U PLAN DOC DISPOSITION & COMMUNICATION FOLLOW UP 3 WEEKS ELECTRONICALLY SIGNED BY RTEY QUINTANILLA MD, MD ON 12/12/2018 AT 07:11 PM EST DISCLAIMER : THIS IS A VISIT SUMMARY EXTRACTED FROM THE [employer] CHART. IT IS NOT A COPY OF THE [employer] PROGRESS NOTE. MTDD
== END ==
LOC: M PAIN 14:45
PROVIDERS: ATTEND Anesthesiology
DX: M53.3 Sacrococcygeal disorders, not elsewhere classified (principal); G89.29 Other chronic pain; F41.9 Anxiety disorder, unspecified; F32.9 Major depressive disorder, single episode, unspecified; F17.210 Nicotine dependence, cigarettes, uncomplicated; Z79.899 Other long term (current) drug therapy; Z88.8 Allergy status to other drugs, medicaments and biological substances

== ENCOUNTER 2019-02-15 14:11 | Emergency (ER) | payer OTHER ==
[~2019-02-15] VITALS: Ht 167.6 cm; Wt 67.3 kg
[~2019-02-15 14:11] MED LIST changes: -/ESOM40CA OR; +NEXI1CAP3 OR; +OXYC1TAB23 PO; -PERCOCET PO
[2019-02-15] MEDS ORDERED: TRAM50TA2 (14:20)
[2019-02-15] MEDS ORDERED: NS 1,000 ML IV ONE (15:45)
[2019-02-15] MEDS ORDERED: ONDANSETRON 4MG/2ML VIAL (J2405) IV ONE (15:45)
[2019-02-15 16:13] LABS: BASO # 0.1 10^3/uL (0.0-0.2); BASO % 0.5 % (0.0-1.0); EOS # 0.2 10^3/uL (0.0-0.50); EOS % 1.7 % (0.0-3.0); HEMATOCRIT 49.3 % (36.0-47.0); HEMOGLOBIN 16.5 g/dl (12.0-15.5); LYMPH % 26.3 % (24.0-44.0); MEAN CORPUSCULAR HEMOGLOBIN 29.9 pg (27.0-33.0); MEAN CORPUSCULAR HGB CONC 33.5 g/dl (32.0-36.5); MEAN CORPUSCULAR VOLUME 89.5 fl (80.0-96.0); MONO # 0.8 10^3/uL (0.0-0.8); MONO % 6.8 % (0.0-5.0); NEUTROPHILS # 7.4 10^3/uL (1.8-7.7); NEUTROPHILS % 64.4 % (36.0-66.0); PLATELET COUNT, AUTOMATED 255 10^3/uL (150-450); RED BLOOD COUNT 5.51 10^6/uL (4.00-5.40); WHITE BLOOD COUNT 11.6 10^3/uL (4.0-10.0)
[2019-02-15 16:55] LABS: ALBUMIN 3.9 GM/DL (3.2-5.2); ALT/SGPT 20 U/L (12-78); AMYLASE 83 U/L (25-115); BILIRUBIN,DIRECT < 0.1 MG/DL (0.0-0.2); BILIRUBIN,TOTAL 0.7 MG/DL (0.2-1.0); BLOOD UREA NITROGEN 12 MG/DL (7-18); CALCIUM LEVEL 9.4 MG/DL (8.8-10.2); CARBON DIOXIDE LEVEL 28 MEQ/L (21-32); CHLORIDE LEVEL 106 MEQ/L (98-107); CREATININE FOR GFR 0.85 MG/DL (0.55-1.30); GLOMERULAR FILTRATION RATE > 60.0 (>45); GLUCOSE, FASTING 89 MG/DL (70-100); LIPASE 145 U/L (73-393); POTASSIUM SERUM 3.5 MEQ/L (3.5-5.1); SODIUM LEVEL 140 MEQ/L (136-145)
--- NOTE | 2019-02-15 17:04 | REP ---
LEFT KNEE, FIVE VIEWS: HISTORY: Pain. There is no acute fracture or dislocation. The joint spaces are normal in appearance. IMPRESSION:There is no acute fracture or dislocation. Electronically Signed by Shyam Galeana MD 02/15/2019 05:25 P
--- NOTE | 2019-02-15 17:16 | REP ---
LEFT LOWER EXTREMITY DUPLEX VEINS: HISTORY: Swelling. There are no filling defects in the deep venous system. The deep venous system is patent. A complex Acosta's cyst is present. The cyst measures 5 x 1.4 x 3.5 cm. IMPRESSION:1. There is no deep venous thrombosis. 2. 5 cm complex Acosta's cyst. Electronically Signed by Shyam Galeana MD 02/15/2019 05:26 P
[2019-02-15 17:33] VITALS: BP 129/58
== END 2019-02-15 17:46 | disposition home or self-care (01) ==
LOC: M ED 14:11
DX: M71.22 Synovial cyst of popliteal space [Baker], left knee (principal); R11.2 Nausea with vomiting, unspecified; M54.5 Low back pain; F41.9 Anxiety disorder, unspecified; F17.200 Nicotine dependence, unspecified, uncomplicated; Z88.8 Allergy status to other drugs, medicaments and biological substances; Z79.899 Other long term (current) drug therapy; Z79.891 Long term (current) use of opiate analgesic
CPT/HCPCS: 73564; 80048; 80076; 81001; 82150; 83690; 83880; 85025; 87086; 93971; 96361; 96374; 99284; J2405

== ENCOUNTER → 2019-04-02 | Outpatient (CLI) | payer OTHER ==
[~2019-04-02] MED LIST changes: +TRAM50TA2
--- NOTE | 2019-04-08 01:15 | ECWPNPC ---
PATIENT NAME: MARIMAR JARVIS : 1955 GENDER: FEMALE VISIT DATE: 04/02/2019 DISCHARGE DATE: 04/02/19946 VISIT LOCKED DATE TIME: PHYSICIAN: TREY QUINTANILLA MD RESOURCE: TREY QUINTANILLA MD REASON FOR APPOINTMENT 1. POST PROC HISTORY OF PRESENT ILLNESS HISTORY OF PRESENT ILLNESS: PAIN THE PATIENT DESCRIBES THE PAIN... 63 YEAR OLD FEMALE PATIENT WITH A HISTORY OF CHRONIC LOW BACK PAIN. THE PATIENT DESCRIBES THE PAIN ACHING, SORE, TENDER, AND CONTINUOUS WITH A PAIN SCORE OF 3-5/10 DEPENDING ON PHYSICAL ACTIVITY. 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 THE PATIENT RECEIVED A SACROCOCCYGEAL LIGAMENT INJECTION ON 02/24/2019 AND REPORTS MORE THAN 80% RELIEF IN HER PAIN WITH INCREASED MOBILITY AND FUNCTIONALITY. THE PATIENT SAYS SHE IS DOING VERY WELL. PATIENT DENIES UNEXPLAINABLE WEIGHT LOSS, FEVER, CHILLS, NEW CHANGES ON HER URINARY OR BOWEL CONTROL. FALL RISK SCREENING: SCREENING :NO FALLS REPORTED IN THE LAST YEAR CURRENT MEDICATIONS TAKING CELEXA 40 MG TABLET 1 TABLET ORALLY TWICE DAILY TAKING FLONASE 50 MCG/ACT SUSPENSION 1 SPRAY IN EACH NOSTRIL NASALLY ONCE A DAY TAKING GABAPENTIN 100 MG CAPSULE 1 CAPSULE ORALLY THREE TIMES DAILY NOT-TAKING AZELASTINE HCL 0.1 % SOLUTION 1 PUFF IN EACH NOSTRIL NASALLY TWICE A DAY, NOTES: 0700 NOT-TAKING KETOROLAC TROMETHAMINE 10 MG TABLET 1 TABLET WITH FOOD OR MILK NEEDED ORALLY FOR PAIN EVERY 8 HRS MDD3 NOT-TAKING SOMA 350 MG TABLET 1 TABLET NEEDED ORALLY FOR SPASMS AND PAIN BEFORE BEDTIME NOT-TAKING TRAMADOL HCL 50 MG TABLET 1 TABLET NEEDED ORALLY DAILY FOR PAIN MDD1 NOT-TAKING XANAX 1 MG TABLET 1 TABLET ORALLY TWICE A DAY NEEDED NOT-TAKING IBUPROFEN 800 MG TABLET 1 TABLET WITH FOOD OR MILK ORALLY EVERY 6 HOURS NEEDED FOR PAIN MDD3, NOTES: NONE RECENT MEDICATION LIST REVIEWED AND RECONCILED WITH THE PATIENT PAST MEDICAL HISTORY INSOMNIA BILATERAL FOOT PAIN ANXIETY DEPRESSION POST LAMINECTOMY PAIN BACK & LEG PAIN ALLERGIES NAPROXEN: ORBITAL PRESSURE - ALLERGY SURGICAL HISTORY LAMINECTOMY 07/16 OR C SECTION C SECTION CATARACTS SURGERY JUN 2018 FAMILY HISTORY FATHER: MOTHER: PARENTS DUE TO MVA. SOCIAL HISTORY GENERAL: TOBACCO USE ARE YOU A:CURRENT SMOKER ARE YOU INTERESTED IN QUITTING?NOT READY TO QUIT COUNSELED THE PATIENT ON SMOKING EFFECTS, EDUCATION [id number]/22/2019 HOW MANY CIGARETTES A DAY DO YOU SMOKE?6-10 HOW SOON AFTER YOU WAKE UP DO YOU SMOKE YOUR FIRST CIGARETTE?6-30 MIN HOW OFTEN DO YOU SMOKE CIGARETTES?EVERY DAY PATIENT COUNSELED ON THE DANGERS OF TOBACCO USE AND URGED TO QUIT:02/24/2019 OTHERS AT HOME: NONE. EDUCATION LEVEL OF EDUCATION:COLLEGE DIET: REGULAR. LANGUAGE LANGUAGES SPOKEN:[place]ZUELAN DOMESTIC VIOLENCE DO YOU FEEL SAFE IN YOUR ENVIRONMENT?YES RECREATIONAL DRUG USE DENIES. EXERCISE: NO REGULAR EXERCISE. LEARNING BARRIERS / SPECIAL NEEDS CHANGE FROM LAST VISIT?NO BARRIERS TO LEARNING?NO HEARING IMPAIRED?NO VISION IMPAIRED?YES :CORRECTIVE LENSES COGNITIVELY IMPAIRED?NO READINESS TO LEARN?YES LEARNING PREFERENCES?YES :DEMONSTRATION/VERBAL INSTRUCTION LEARNING CAPABILITIES PRESENT?YES EMOTIONAL BARRIERS?NO SPECIAL DEVICES?NO HELMET HAT BRIM CUTTER NEEDED?NO PAIN CLINIC PFS, CLERGY, PUBLIC HEALTH REFERRALS PFS REFERRAL NEEDED?NO CLERGY REFERRAL NEEDED?NO PUBLIC HEALTH REFERRAL NEEDED?NO WAS THE PROVIDER NOTIFIED OF ANY PERTINENT INFO?YES HAS THE PATIENT BEEN EDUCATED REGARDING HIS/HER PLAN OF CARE?YES HAS THE PATIENT BEEN EDUCATED REGARDING PAIN, THE RISK FOR PAIN, THE IMPORTANCE OF EFFECTIVE PAIN MANAGEMENT, AND THE PAIN ASSESSMENT PROCESS?YES LATEX QUESTIONNAIRE LATEX ALLERGY : HAVE YOU EVER DEVELOPED ANY TYPE OF REACTION AFTER HANDLING LATEX PRODUCTS SUCH RUBBER GLOVES, CONDOMS, DIAPHRAGMS, BALLOONS, SOCKS, OR UNDERWEAR?NO LATEX ALLERGY : HAVE YOU EVER DEVELOPED ANY TYPE OF REACTION DURING OR AFTER DENTAL APPOINTMENT, VAGINAL/RECTAL EXAMINATION, SURGICAL PROCEDURE, OR ANY OTHER EXPOSURE?NO LATEX RISK : HAVE YOU EVER HAD ANY DIFFICULTY BREATHING OR HIVES AFTER EATING OR HANDLING ANY FRUITS, OR VEGETABLES; SUCH KIWI, BANANAS, STONE FRUITS, OR CHESTNUTSNO LATEX RISK : DO YOU HAVE A PREVIOUS PERSONAL HISTORY OF MORE THAN NINE SURGERIES, SPINA BIFIDA, OR REPEATED CATHERTIZATIONS? NO LATEX RISK : ARE YOU FREQUENTLY EXPOSED TO LATEX PRODUCTS IN YOUR OCCUPATION?NO DATE ASKED : 02/24/2019 CAFFEINE CAFFEINE USE?NO ADVANCE DIRECTIVE ADVANCE DIRECTIVE DISCUSSED WITH PATIENT:YES PT HAS HEALTH CARE PROXY AT HER [employer]. 04/02/19 BUDDHISM [id number] MANDAEN MARITAL STATUS: SINGLE. ALCOHOL SCREENING DID YOU HAVE A DRINK CONTAINING ALCOHOL IN THE PAST YEAR? YES , POINTS 0 , INTERPRETATION NEGATIVE. OCCUPATION: RETIRED. REVIEWED WITH PT 08/31/18 1141 BVRVIEWED WITH PATIENT 09/18/18 1200 LASREVIEWED WITH PATIENT 02/24/19 1337 JSREVIEWED WITH PT 04/02/19 0894 BV. HOSPITALIZATION/MAJOR DIAGNOSTIC PROCEDURE SURGERY 07/16 OR REVIEW OF SYSTEMS REVIEWED BY: PROVIDER: TREY QUINTANILLA MD . CONSTITUTIONAL: ANY CHANGE IN YOUR MEDICAL CONDITION? PT HAD INJECTION IN LEFT KNEE AT [facility] 1 WEEK AGO. . CHILLS NO . FEVER NO . INFECTION: DO YOU HAVE NEW INFECTIONS? NO . DO YOU HAVE HISTORY OF MRSA? NO . MUSCULOSKELETAL: ANY NEW PATTERNS OF PAIN OR NUMBNESS? YES, PT STATES DECREASED PAIN SINCE SACRALCOCCYGEAL INJECTION . GASTROENTEROLOGY: ANY NEW CHANGE IN BOWEL CONTROL? NO . GENITOURINARY: ANY NEW CHANGE IN BLADDER CONTROL? NO . IS THERE A CHANCE YOU COULD BE ? NO . HEMATOLOGY/LYMPH: DO YOU TAKE ANY BLOOD THINNERS? (FOR EXAMPLE- COUMADIN, PLAVIX, AGGRENOX, PLATEL, PRADAXA, OR XARELTO) NO . WHEN WAS YOUR LAST DOSE? DATE: TIME: . NEUROLOGY: HAVE YOU FALLEN IN THE PAST 12 MONTHS? DENIES ANY FALLS SINCE LAST VISIT. PT STATES ALL PREVIOUS FALLS HAVE BEEN DOCUMENTED . ANY NEW EXTREMITY NUMBNESS OR WEAKNESS? NO . CARDIOLOGY: DO YOU HAVE A PACEMAKER OR DEFIBRILLATOR? NO . RESPIRATORY: HAVE YOU BEEN SICK IN THE PAST WEEK? NO . FEVER NO . FLU LIKE SYMPTOMS? NO . COUGH NO . INTEGUMENTARY: DO YOU HAVE ANY RASHES OR OPEN SORES? NO . ALLERGIC/IMMUNO: ARE YOU ALLERGIC TO IV DYE? NO . ANY NEW ALLERGIES? NO . PSYCHIATRIC: DO YOU HAVE THOUGHTS OF HURTING YOURSELF OR SOMEONE ELSE? NO . ARE YOU ABUSED, NEGLECTED, OR IN AN UNSAFE ENVIRONMENT? NO . ENDOCRINOLOGY: ARE YOU DIABETIC? NO . OTHER: DO YOU NEED ANY PRESCRIPTIONS? NO . IF YES, PLEASE LIST: ____ . ANY NEW PROBLEMS WITH YOUR MEDICATIONS? NO . WHEN DID YOU LAST EAT? ____ . WHEN DID YOU LAST DRINK? ____ . WHAT DID YOU LAST DRINK? ____ . NAME OF PERSON DRIVING YOU HOME? ____ . DO YOU HAVE ANY OTHER QUESTIONS OR CONCERNS NO . VITAL SIGNS WT 150.6 LBS, HT 66 IN, BMI 24.30 INDEX, BP 116/56 MM HG, HR 61 /MIN, RR 18 /MIN, TEMP 96.3 F, OXYGEN SAT % 95%, NA INITIALS SC 08:37, REVIEWED BY: BV. EXAMINATION GENERAL EXAMINATION: PATIENT IS ALERT O X 3 AND COOPERATIVE. ASSESSMENTS COCCYDYNIA - M53.3 (PRIMARY) LOW BACK PAIN - M54.5 OTHER CHRONIC PAIN - G89.29 TREATMENT COCCYDYNIA CLINICAL NOTES: WE DISCUSSED SEVERAL ISSUES WITH MRS. JARVIS'S PAIN MANAGEMENT CASE. THE PATIENT REPORTS DOING WELL, SO WE WILL NOT BE MOVING FORWARD WITH ANY INTERVENTIONS AT THIS TIME. THE PATIENT WILL CONTINUE USING GABAPENTIN FOR NEUROPATHIC PAIN. THE PATIENT WILL FOLLOW UP WITH A NURSE PRACTITIONER IN 3 MONTHS. INSTRUCTIONS WERE GIVEN, QUESTIONS WERE ANSWERED, PATIENT REPORTS UNDERSTANDING AND AGREES WITH THE PLAN. I, QUAN CHESTER, DOCUMENTED THE ABOVE INFORMATION ACTING A SCRIBE FOR DR. QUINTANILLA. I HAVE REVIEWED THE ABOVE DOCUMENT, WRITTEN BY QUAN ODOM AND I VERIFY THAT IT IS ACCURATE. . PROCEDURES PN WORKMANS' COMP OPINION IN YOUR OPINION, WAS THE INCIDENT THAT THE PATIENT DESCRIBED THE COMPETENT MEDICAL CAUSE OF THIS INJURY/ILLNESS? YES ARE THE PATIENT'S COMPLAINTS CONSISTENT WITH HIS/HER HISTORY OF THE INJURY/ILLNESS? YES IS THE PATIENT'S HISTORY OF THE INJURY/ILLNESS CONSISTENT WITH YOUR OBJECTIVE FINDING? YES WHAT IS THE PERCENTAGE OF TEMPORARY IMPAIRMENT? TOTAL = 100% IS THE PATIENT WORKING? NO DOCTOR ON SITE: TREY SIERRA MD PROCEDURE CODES FA211 ESTABILISHED PATIENT [facility] FACILITY CHARGE G8427 CURRENT MEDS W/DOSAGES DOCUMENTED G8730 PAIN ASSESS POS TOOL F/U PLAN DOC DISPOSITION & COMMUNICATION FOLLOW UP 3 MONTHS (REASON: W/C LOW BACK) ELECTRONICALLY SIGNED BY TREY QUINTANILLA MD, MD ON 04/07/2019 AT 05:35 PM EDT DISCLAIMER : THIS IS A VISIT SUMMARY EXTRACTED FROM THE [employer] CHART. IT IS NOT A COPY OF THE [employer] PROGRESS NOTE. MIKE
== END ==
LOC: M PAIN 08:30
PROVIDERS: ATTEND Anesthesiology
DX: G89.29 Other chronic pain (principal); M53.3 Sacrococcygeal disorders, not elsewhere classified; M54.5 Low back pain; G47.00 Insomnia, unspecified; F41.9 Anxiety disorder, unspecified; F32.9 Major depressive disorder, single episode, unspecified; M96.1 Postlaminectomy syndrome, not elsewhere classified; F17.210 Nicotine dependence, cigarettes, uncomplicated; Z98.49 Cataract extraction status, unspecified eye; Z79.899 Other long term (current) drug therapy; Z88.6 Allergy status to analgesic agent

== ENCOUNTER → 2019-06-10 | Outpatient (CLI) | payer OTHER ==
--- NOTE | 2019-06-13 23:06 | ECWPNPC ---
PATIENT NAME: MARIMAR JARVIS : 1955 GENDER: FEMALE VISIT DATE: 06/10/2019 DISCHARGE DATE: 06/10/19 1432 VISIT LOCKED DATE TIME: PHYSICIAN: STACI MOREJON RESOURCE: STACI MOREJON REASON FOR APPOINTMENT 1. TO SEE HISTORY OF PRESENT ILLNESS HISTORY OF PRESENT ILLNESS: PAIN THE PATIENT DESCRIBES THE PAIN... 64-YEAR-OLD FEMALE WITH A HISTORY OF CHRONIC PAIN IN TODAY WITH COMPLAINTS OF WORSENING PAIN. PATIENT WAS [place] [employer] OVER THE WEEKEND PULLING ON LIMBS AND EXPERIENCED INCREASED PAIN SHORTLY AFTER. SHE RATES HER PAIN A 9-10 OUT OF 10 AND DESCRIBES IT SHARP AND STABBING. SHE DOES ADMIT THE KETOROLAC WAS HELPFUL HOWEVER IT DID NOT LAST LONG ENOUGH. SHE STATES IT FEELS IF THERE IS A TIGHT BOARD IN HER LOW BACK. FALL RISK SCREENING: SCREENING :NO FALLS REPORTED IN THE LAST YEAR CURRENT MEDICATIONS TAKING CELEXA 40 MG TABLET 1 TABLET ORALLY TWICE DAILY TAKING FLONASE 50 MCG/ACT SUSPENSION 1 SPRAY IN EACH NOSTRIL NASALLY ONCE A DAY TAKING GABAPENTIN 100 MG CAPSULE 1 CAPSULE ORALLY THREE TIMES DAILY TAKING KETOROLAC TROMETHAMINE 10 MG TABLET 1 TABLET WITH FOOD OR MILK NEEDED ORALLY FOR PAIN EVERY 8 HRS MDD3, NOTES: HAS 2 PILLS LEFT NOT-TAKING AZELASTINE HCL 0.1 % SOLUTION 1 PUFF IN EACH NOSTRIL NASALLY TWICE A DAY, NOTES: 0700 NOT-TAKING SOMA 350 MG TABLET 1 TABLET NEEDED ORALLY FOR SPASMS AND PAIN BEFORE BEDTIME NOT-TAKING TRAMADOL HCL 50 MG TABLET 1 TABLET NEEDED ORALLY DAILY FOR PAIN MDD1 NOT-TAKING XANAX 1 MG TABLET 1 TABLET ORALLY TWICE A DAY NEEDED NOT-TAKING IBUPROFEN 800 MG TABLET 1 TABLET WITH FOOD OR MILK ORALLY EVERY 6 HOURS NEEDED FOR PAIN MDD3, NOTES: NONE RECENT MEDICATION LIST REVIEWED AND RECONCILED WITH THE PATIENT PAST MEDICAL HISTORY INSOMNIA BILATERAL FOOT PAIN ANXIETY DEPRESSION POST LAMINECTOMY PAIN BACK & LEG PAIN ALLERGIES NAPROXEN: ORBITAL PRESSURE - ALLERGY SURGICAL HISTORY LAMINECTOMY 07/16 OR C SECTION C SECTION CATARACTS SURGERY JUN 2018 FAMILY HISTORY FATHER: MOTHER: PARENTS DUE TO MVA. SOCIAL HISTORY GENERAL: TOBACCO USE ARE YOU A:CURRENT SMOKER ARE YOU INTERESTED IN QUITTING?NOT READY TO QUIT COUNSELED THE PATIENT ON SMOKING EFFECTS, EDUCATION DANMPIHT08/22/2019 HOW MANY CIGARETTES A DAY DO YOU SMOKE?6-10 HOW SOON AFTER YOU WAKE UP DO YOU SMOKE YOUR FIRST CIGARETTE?6-30 MIN HOW OFTEN DO YOU SMOKE CIGARETTES?EVERY DAY PATIENT COUNSELED ON THE DANGERS OF TOBACCO USE AND URGED TO QUIT:06/10/2019 OTHERS AT HOME: NONE. EDUCATION LEVEL OF EDUCATION:COLLEGE DIET: REGULAR. LANGUAGE LANGUAGES SPOKEN:SYRIAC DOMESTIC VIOLENCE DO YOU FEEL SAFE IN YOUR ENVIRONMENT?YES RECREATIONAL DRUG USE DENIES. EXERCISE: NO REGULAR EXERCISE. LEARNING BARRIERS / SPECIAL NEEDS CHANGE FROM LAST VISIT?NO BARRIERS TO LEARNING?NO HEARING IMPAIRED?NO VISION IMPAIRED?YES :CORRECTIVE LENSES COGNITIVELY IMPAIRED?NO READINESS TO LEARN?YES LEARNING PREFERENCES?YES :DEMONSTRATION/VERBAL INSTRUCTION LEARNING CAPABILITIES PRESENT?YES EMOTIONAL BARRIERS?NO SPECIAL DEVICES?NO RECREATIONAL COUNSELOR NEEDED?NO PAIN CLINIC PFS, CLERGY, PUBLIC HEALTH REFERRALS PFS REFERRAL NEEDED?NO CLERGY REFERRAL NEEDED?NO PUBLIC HEALTH REFERRAL NEEDED?NO WAS THE PROVIDER NOTIFIED OF ANY PERTINENT INFO?YES HAS THE PATIENT BEEN EDUCATED REGARDING HIS/HER PLAN OF CARE?YES HAS THE PATIENT BEEN EDUCATED REGARDING PAIN, THE RISK FOR PAIN, THE IMPORTANCE OF EFFECTIVE PAIN MANAGEMENT, AND THE PAIN ASSESSMENT PROCESS?YES LATEX QUESTIONNAIRE LATEX ALLERGY : HAVE YOU EVER DEVELOPED ANY TYPE OF REACTION AFTER HANDLING LATEX PRODUCTS SUCH RUBBER GLOVES, CONDOMS, DIAPHRAGMS, BALLOONS, SOCKS, OR UNDERWEAR?NO LATEX ALLERGY : HAVE YOU EVER DEVELOPED ANY TYPE OF REACTION DURING OR AFTER DENTAL APPOINTMENT, VAGINAL/RECTAL EXAMINATION, SURGICAL PROCEDURE, OR ANY OTHER EXPOSURE?NO LATEX RISK : HAVE YOU EVER HAD ANY DIFFICULTY BREATHING OR HIVES AFTER EATING OR HANDLING ANY FRUITS, OR VEGETABLES; SUCH KIWI, BANANAS, STONE FRUITS, OR CHESTNUTSNO LATEX RISK : DO YOU HAVE A PREVIOUS PERSONAL HISTORY OF MORE THAN NINE SURGERIES, SPINA BIFIDA, OR REPEATED CATHERIZATIONS? NO LATEX RISK : ARE YOU FREQUENTLY EXPOSED TO LATEX PRODUCTS IN YOUR OCCUPATION?NO DATE ASKED : 02/24/2019 CAFFEINE CAFFEINE USE?NO ADVANCE DIRECTIVE ADVANCE DIRECTIVE DISCUSSED WITH PATIENT:YES PT HAS HEALTH CARE PROXY AT HER RELIGIOUS. 04/02/19 CHURCH [id number] SHINTO MARITAL STATUS: SINGLE. ALCOHOL SCREENING DID YOU HAVE A DRINK CONTAINING ALCOHOL IN THE PAST YEAR? YES , POINTS 0 , INTERPRETATION NEGATIVE. OCCUPATION: RETIRED. REVIEWED WITH PT 08/31/18 1141 BVRVIEWED WITH PATIENT 09/18/18 1200 LASREVIEWED WITH PATIENT 02/24/19 1337 JSREVIEWED WITH PT 04/02/19 0851 BVREVIEWED WITH PATIENT 06/10/19 1338 NLJ. HOSPITALIZATION/MAJOR DIAGNOSTIC PROCEDURE SURGERY 07/16 OR REVIEW OF SYSTEMS REVIEWED BY: PROVIDER: RAJWINDER GOMEZ . CONSTITUTIONAL: ANY CHANGE IN YOUR MEDICAL CONDITION? NO . CHILLS NO . FEVER NO . INFECTION: DO YOU HAVE NEW INFECTIONS? NO . DO YOU HAVE HISTORY OF MRSA? NO . MUSCULOSKELETAL: ANY NEW PATTERNS OF PAIN OR NUMBNESS? YES- HAS HAD INCREASED PAIN IN LOWER BACK AND DOWN BILATERAL LE X 5 DAYS OF REALLY BAD PAIN . GASTROENTEROLOGY: ANY NEW CHANGE IN BOWEL CONTROL? NO . GENITOURINARY: ANY NEW CHANGE IN BLADDER CONTROL? NO . IS THERE A CHANCE YOU COULD BE ? NO . HEMATOLOGY/LYMPH: DO YOU TAKE ANY BLOOD THINNERS? (FOR EXAMPLE- COUMADIN, PLAVIX, AGGRENOX, PLATEL, PRADAXA, OR XARELTO) NO . WHEN WAS YOUR LAST DOSE? DATE: TIME: . NEUROLOGY: HAVE YOU FALLEN IN THE PAST 12 MONTHS? NO . ANY NEW EXTREMITY NUMBNESS OR WEAKNESS? YES- STATES SHE FEELS A PRESSURE SENSATION IN BLE . CARDIOLOGY: DO YOU HAVE A PACEMAKER OR DEFIBRILLATOR? NO . RESPIRATORY: HAVE YOU BEEN SICK IN THE PAST WEEK? NO . FEVER NO . FLU LIKE SYMPTOMS? NO . COUGH NO . INTEGUMENTARY: DO YOU HAVE ANY RASHES OR OPEN SORES? NO . ALLERGIC/IMMUNO: ARE YOU ALLERGIC TO IV DYE? NO . ANY NEW ALLERGIES? NO . PSYCHIATRIC: DO YOU HAVE THOUGHTS OF HURTING YOURSELF OR SOMEONE ELSE? NO . ARE YOU ABUSED, NEGLECTED, OR IN AN UNSAFE ENVIRONMENT? NO . ENDOCRINOLOGY: ARE YOU DIABETIC? NO . OTHER: DO YOU NEED ANY PRESCRIPTIONS? YES . IF YES, PLEASE LIST: ____STATES THE KETORALAC IS HELPING BUT THEY ARE NOT LAST 4 HOURS THEY ARE PERSCIBED A MDD OF 3 PER DAY, DR QUINTANILLA ORDERED MACIE A 3 DAY SUPPLY TO GET HER TO THIS APPT . ANY NEW PROBLEMS WITH YOUR MEDICATIONS? NO . WHEN DID YOU LAST EAT? ____ . WHEN DID YOU LAST DRINK? ____ . WHAT DID YOU LAST DRINK? ____ . NAME OF PERSON DRIVING YOU HOME? ____ . DO YOU HAVE ANY OTHER QUESTIONS OR CONCERNS YES- NEEDS INCREASE/REFILL OF KETORLAC OR SOMETHING TO HELP CONTROL HER PAIN, STATES THAT HER PAIN IS DFFERENT THEN WHEN SHE HAD SACROCOCCEGEAYL INJECTIONS . VITAL SIGNS WT 149.8 LBS, HT 66 IN, BMI 24.18 INDEX, BP 110/55 MM HG, HR 68 /MIN, RR 18 /MIN, TEMP 96.8 F, OXYGEN SAT % 97%, SAFE IN ENV? (Y/N) YES, NA INITIALS ND 13:39, REVIEWED BY: GHULAM. EXAMINATION GENERAL EXAMINATION: GENERALNO ACUTE DISTRESS, WELL NOURISHED AND HYDRATED. PSYCHAPPROPRIATE MOOD AND AFFECT . LUNGS:CLEAR TO AUSCULTATION BILATERALLY, NO WHEEZES, RHONCHI, RALES. HEART:NO MURMURS, REGULAR RATE AND RHYTHM. BACK:POINT TENDER ALONG LOW BACK, SURROUNDING SKIN SHOWS NO ERYTHEMA, ECCHYMOSIS, INCREASED WARMTH, AND/OR SKIN ERUPTIONS NOTED. POSITIVE SLR BILATERALLY.. MUSCULOSKELETAL:PATIENT HAS EQUAL STRENGTH LOWER EXTREMITIES . ASSESSMENTS MYALGIA, OTHER SITE - M79.18 (PRIMARY) LOW BACK PAIN - M54.5 TREATMENT MYALGIA, OTHER SITE START DICLOFENAC SODIUM TABLET DELAYED RELEASE, 50 MG, 1 TABLET WITH FOOD OR MILK, ORALLY, THREE TIMES A DAY, 30 DAY(S), 90 STOP KETOROLAC TROMETHAMINE TABLET, 10 MG, 1 TABLET WITH FOOD OR MILK NEEDED, ORALLY FOR PAIN, EVERY 8 HRS MDD3, NOTES: HAS 2 PILLS LEFT NOTES: TPI OF LOW BACK. CLINICAL NOTES: 64-YEAR-OLD FEMALE IN FOR CHRONIC PAIN FOLLOW. GIVEN PRESENT SYMPTOMS AND RESULTS OF PHYSICAL EXAMINATION RECOMMENDED TPI OF THE LOW BACK, STARTING DICLOFENAC, AND X-RAY OF THE LUMBAR SPINE. PATIENT WAS ENCOURAGED NOT TO TAKE OTHER NSAIDS WHILE ON THE DICLOFENAC. PATIENT HAS EXPRESSED UNDERSTANDING OF AND WAS IN AGREEMENT WITH TREATMENT PLAN. GIVEN TIME TO ASK QUESTIONS AND EXPRESS CONCERNS. LOW BACK PAIN X RAY : SPINES, [id number] PREVENTIVE MEDICINE PAIN CLINIC TEACHING: MEDICATIONS DICLOFENAC DRUG INFORMATION PRINTED AND REVIEWED WITH PATIENT, PATIENT ADVISED TO STOP KETOROLAC . PROCEDURE TEACHING TRIGGER POINT INJECTION INFORMATION PRINTED AND REVIEWED WITH PATIENT 06/10/19 1437 GHULAM. PROCEDURE CODES FA211 ESTABILISHED PATIENT [facility] CHARGE DISPOSITION & COMMUNICATION FOLLOW UP POST PROCEDURE (REASON: TPI OF LOW BACK ) ELECTRONICALLY SIGNED BY RAMONA FRANK ON 06/11/2019 AT 12:53 PM EDT DISCLAIMER : THIS IS A VISIT SUMMARY EXTRACTED FROM THE [email or web address] CHART. IT IS NOT A COPY OF THE [employer] PROGRESS NOTE. MIKE
== END ==
LOC: M PAIN 13:30
PROVIDERS: ATTEND Family Medicine
DX: M79.18 Myalgia, other site (principal); M54.5 Low back pain; G47.00 Insomnia, unspecified; Z86.59 Personal history of other mental and behavioral disorders; F17.210 Nicotine dependence, cigarettes, uncomplicated; Z88.6 Allergy status to analgesic agent; Z79.899 Other long term (current) drug therapy

== ENCOUNTER → 2019-06-10 | Outpatient (CLI) | payer OTHER ==
--- NOTE | 2019-06-10 15:40 | REP ---
Clinical: Low back pain. Technique: AP, lateral, bilateral oblique and coned-down views of the lumbosacral spine. Findings: Moderate/early advanced multilevel degenerative changes include endplate sclerosis, osteophytosis, hypertrophic facet changes, and disc space narrowing. Age-related osteopenia noted. No acute fracture / compression injury or subluxation. Impression: Early advanced multilevel degenerative spondylosis. Electronically Signed by Amandeep Ybarra MD 06/10/2019 03:31 P
== END ==
LOC: M RAD 14:44
PROVIDERS: ATTEND Family Medicine
DX: M81.0 Age-related osteoporosis without current pathological fracture (principal); M25.78 Osteophyte, vertebrae; M47.819 Spondylosis without myelopathy or radiculopathy, site unspecified

== ENCOUNTER → 2019-06-28 | Outpatient (CLI) | payer OTHER ==
[~2019-06-28] MED LIST changes: +BUPIVACAINE HCL 0.25% 10 ML VIAL As Ordered ONE; +BUPIVACAINE HCL 0.25% 30 ML VIAL As Ordered ONE; +TRIAMCINOLONE ACETONIDE SUSP 40 MG/ML VIAL (J3301) As Ordered ONE; +diazePAM 5 MG TAB As Ordered ONE; +oxyCODONE 5MG TAB As Ordered ONE
--- NOTE | 2019-07-11 23:19 | ECWPNPC ---
PATIENT NAME: MARIMAR JARVIS : 1955 GENDER: FEMALE VISIT DATE: 06/28/2019 DISCHARGE DATE: 06/28/19 1047 VISIT LOCKED DATE TIME: PHYSICIAN: TREY QUINTANILLA MD RESOURCE: TREY QUINTANILLA MD REASON FOR APPOINTMENT 1. TPI BILAT LOW BACK HISTORY OF PRESENT ILLNESS HISTORY OF PRESENT ILLNESS: PAIN THE PATIENT DESCRIBES THE PAIN... FALL RISK SCREENING: SCREENING :NO FALLS REPORTED IN THE LAST YEAR CURRENT MEDICATIONS TAKING CELEXA 40 MG TABLET 1 TABLET ORALLY TWICE DAILY TAKING GABAPENTIN 100 MG CAPSULE 1 CAPSULE ORALLY THREE TIMES DAILY TAKING ACETAMINOPHEN 325 MG TABLET 1 TABLET NEEDED ORALLY EVERY 4 HRS TAKING IBUPROFEN 800 MG TABLET 1 TABLET WITH FOOD OR MILK ORALLY EVERY 6 HOURS NEEDED FOR PAIN MDD3, NOTES: NONE RECENT NOT-TAKING FLONASE 50 MCG/ACT SUSPENSION 1 SPRAY IN EACH NOSTRIL NASALLY ONCE A DAY NOT-TAKING DICLOFENAC SODIUM 50 MG TABLET DELAYED RELEASE 1 TABLET WITH FOOD OR MILK ORALLY THREE TIMES A DAY NOT-TAKING TRAMADOL HCL 50 MG TABLET 1 TABLET NEEDED ORALLY DAILY FOR PAIN MDD1 NOT-TAKING AZELASTINE HCL 0.1 % SOLUTION 1 PUFF IN EACH NOSTRIL NASALLY TWICE A DAY, NOTES: 0700 NOT-TAKING SOMA 350 MG TABLET 1 TABLET NEEDED ORALLY FOR SPASMS AND PAIN BEFORE BEDTIME NOT-TAKING XANAX 1 MG TABLET 1 TABLET ORALLY TWICE A DAY NEEDED MEDICATION LIST REVIEWED AND RECONCILED WITH THE PATIENT PAST MEDICAL HISTORY INSOMNIA BILATERAL FOOT PAIN ANXIETY DEPRESSION POST LAMINECTOMY PAIN BACK & LEG PAIN ALLERGIES NAPROXEN: ORBITAL PRESSURE - ALLERGY TRAMADOL HCL: NAUSEA/VOMITING - SIDE EFFECTS KETOROLAC TROMETHAMINE: NAUSEA/VOMITING - SIDE EFFECTS DICLOFENAC: NAUSEA/VOMITING - SIDE EFFECTS SURGICAL HISTORY LAMINECTOMY 07/16 OR 12 C SECTION C SECTION CATARACTS SURGERY JUN 2018 FAMILY HISTORY FATHER: MOTHER: PARENTS DUE TO MVA. SOCIAL HISTORY GENERAL: TOBACCO USE ARE YOU A:CURRENT SMOKER HOW OFTEN DO YOU SMOKE CIGARETTES?EVERY DAY HOW SOON AFTER YOU WAKE UP DO YOU SMOKE YOUR FIRST CIGARETTE?6-30 MIN HOW MANY CIGARETTES A DAY DO YOU SMOKE?6-10 ARE YOU INTERESTED IN QUITTING?NOT READY TO QUIT PATIENT COUNSELED ON THE DANGERS OF TOBACCO USE AND URGED TO QUIT:06/10/2019 COUNSELED THE PATIENT ON SMOKING EFFECTS, EDUCATION [id number] OTHERS AT HOME: NONE. EDUCATION LEVEL OF EDUCATION:COLLEGE DIET: REGULAR. LANGUAGE LANGUAGES SPOKEN:POLISH DOMESTIC VIOLENCE DO YOU FEEL SAFE IN YOUR ENVIRONMENT?YES RECREATIONAL DRUG USE DENIES. EXERCISE: NO REGULAR EXERCISE. LEARNING BARRIERS / SPECIAL NEEDS CHANGE FROM LAST VISIT?NO BARRIERS TO LEARNING?NO HEARING IMPAIRED?NO VISION IMPAIRED?YES COGNITIVELY IMPAIRED?NO :CORRECTIVE LENSES READINESS TO LEARN?YES LEARNING PREFERENCES?YES :DEMONSTRATION/VERBAL INSTRUCTION LEARNING CAPABILITIES PRESENT?YES EMOTIONAL BARRIERS?NO SPECIAL DEVICES?NO RESEARCH ASSOC NEEDED?NO PAIN CLINIC PFS, CLERGY, PUBLIC HEALTH REFERRALS PFS REFERRAL NEEDED?NO CLERGY REFERRAL NEEDED?NO PUBLIC HEALTH REFERRAL NEEDED?NO WAS THE PROVIDER NOTIFIED OF ANY PERTINENT INFO?YES HAS THE PATIENT BEEN EDUCATED REGARDING HIS/HER PLAN OF CARE?YES HAS THE PATIENT BEEN EDUCATED REGARDING PAIN, THE RISK FOR PAIN, THE IMPORTANCE OF EFFECTIVE PAIN MANAGEMENT, AND THE PAIN ASSESSMENT PROCESS?YES LATEX QUESTIONNAIRE LATEX ALLERGY : HAVE YOU EVER DEVELOPED ANY TYPE OF REACTION AFTER HANDLING LATEX PRODUCTS SUCH RUBBER GLOVES, CONDOMS, DIAPHRAGMS, BALLOONS, SOCKS, OR UNDERWEAR?NO LATEX ALLERGY : HAVE YOU EVER DEVELOPED ANY TYPE OF REACTION DURING OR AFTER DENTAL APPOINTMENT, VAGINAL/RECTAL EXAMINATION, SURGICAL PROCEDURE, OR ANY OTHER EXPOSURE?NO DATE ASKED : 02/24/2019 LATEX RISK : HAVE YOU EVER HAD ANY DIFFICULTY BREATHING OR HIVES AFTER EATING OR HANDLING ANY FRUITS, OR VEGETABLES; SUCH KIWI, BANANAS, STONE FRUITS, OR CHESTNUTSNO LATEX RISK : DO YOU HAVE A PREVIOUS PERSONAL HISTORY OF MORE THAN NINE SURGERIES, SPINA BIFIDA, OR REPEATED CATHERIZATIONS? NO LATEX RISK : ARE YOU FREQUENTLY EXPOSED TO LATEX PRODUCTS IN YOUR OCCUPATION?NO CAFFEINE CAFFEINE USE?NO ADVANCE DIRECTIVE ADVANCE DIRECTIVE DISCUSSED WITH PATIENT:YES PT HAS HEALTH CARE PROXY AT HER ALEVISM. ANGLICAN [id number] EVANGELICAL MARITAL STATUS: SINGLE. ALCOHOL SCREENING DID YOU HAVE A DRINK CONTAINING ALCOHOL IN THE PAST YEAR? YES , POINTS 0 , INTERPRETATION NEGATIVE. OCCUPATION: RETIRED. REVIEWED WITH PT 08/31/18 1141 BVRVIEWED WITH PATIENT 09/18/18 1200 LASREVIEWED WITH PATIENT 02/24/19 1337 JSREVIEWED WITH PT 04/02/19 0851 BVREVIEWED WITH PATIENT 06/10/19 1338 NLJREVIEWED WITH PATIENT 06/28/19 0915 LAS. HOSPITALIZATION/MAJOR DIAGNOSTIC PROCEDURE SURGERY 07/16 OR REVIEW OF SYSTEMS REVIEWED BY: PROVIDER: . CONSTITUTIONAL: ANY CHANGE IN YOUR MEDICAL CONDITION? NO . CHILLS NO . FEVER NO . INFECTION: DO YOU HAVE NEW INFECTIONS? NO . DO YOU HAVE HISTORY OF MRSA? NO . MUSCULOSKELETAL: ANY NEW PATTERNS OF PAIN OR NUMBNESS? YES PT REPORTS A NEW BURNING PAIN RADIATING DOWN BOTH LEGS, THIS STARTED APPROXIMATELY TWO WEEKS AGO AFTER DOING SOME YARD WORK. SHE DISCUSSED THIS WITH DR. QUINTANILLA . GASTROENTEROLOGY: ANY NEW CHANGE IN BOWEL CONTROL? NO . GENITOURINARY: ANY NEW CHANGE IN BLADDER CONTROL? NO . IS THERE A CHANCE YOU COULD BE ? NO . HEMATOLOGY/LYMPH: DO YOU TAKE ANY BLOOD THINNERS? (FOR EXAMPLE- COUMADIN, PLAVIX, AGGRENOX, PLATEL, PRADAXA, OR XARELTO) NO . WHEN WAS YOUR LAST DOSE? DATE: TIME: . NEUROLOGY: HAVE YOU FALLEN IN THE PAST 12 MONTHS? YES PT REPORTS SHE HAS FALLEN DUE TO WEAKNESS IN HER LEGS, OR SUDDEN PAIN. USUALLY IT IS WHEN SHE IS RISING OUT OF BED OR A RECLINER, AND HAS FALLEN BACK INTO THE BED OR RECLINER, NO INJURY PER PT. . ANY NEW EXTREMITY NUMBNESS OR WEAKNESS? YES . CARDIOLOGY: DO YOU HAVE A PACEMAKER OR DEFIBRILLATOR? NO . RESPIRATORY: HAVE YOU BEEN SICK IN THE PAST WEEK? NO . FEVER NO . FLU LIKE SYMPTOMS? NO . COUGH NO . INTEGUMENTARY: DO YOU HAVE ANY RASHES OR OPEN SORES? NO . ALLERGIC/IMMUNO: ARE YOU ALLERGIC TO IV DYE? NO . ANY NEW ALLERGIES? YES PT REPORTS SIDE EFFECTS TO TRAMADOL AND DICLOFENAC, KETOROLAC. . PSYCHIATRIC: DO YOU HAVE THOUGHTS OF HURTING YOURSELF OR SOMEONE ELSE? NO . ENDOCRINOLOGY: ARE YOU DIABETIC? NO . OTHER: DO YOU NEED ANY PRESCRIPTIONS? NO . IF YES, PLEASE LIST: ____ . ANY NEW PROBLEMS WITH YOUR MEDICATIONS? NO . WHEN DID YOU LAST EAT? ____06/27/19 1930 . WHEN DID YOU LAST DRINK? ____06/28/19 0630 . WHAT DID YOU LAST DRINK? ____WATER . NAME OF PERSON DRIVING YOU HOME? ____AL . DO YOU HAVE ANY OTHER QUESTIONS OR CONCERNS NO . VITAL SIGNS WT 144.6 LBS, HT 66 IN, BMI 23.34 INDEX, BP 131/60 MM HG, HR 75 /MIN, RR 18 /MIN, TEMP 97.0 F, OXYGEN SAT % 98%, SAFE IN ENV? (Y/N) YES, NA INITIALS AW 0903, REVIEWED BY: LAS. LANE MYALGIA, OTHER SITE - M79.18 (PRIMARY) PROCEDURES PN WORKMANS' COMP OPINION IN YOUR OPINION, WAS THE INCIDENT THAT THE PATIENT DESCRIBED THE COMPETENT MEDICAL CAUSE OF THIS INJURY/ILLNESS? YES ARE THE PATIENT'S COMPLAINTS CONSISTENT WITH HIS/HER HISTORY OF THE INJURY/ILLNESS? YES IS THE PATIENT'S HISTORY OF THE INJURY/ILLNESS CONSISTENT WITH YOUR OBJECTIVE FINDING? YES WHAT IS THE PERCENTAGE OF TEMPORARY IMPAIRMENT? TOTAL = 100% IS THE PATIENT WORKING? NO DOCTOR ON SITE: TREY SIERRA MD PN TRIGGER POINT INJECTION WITH STEROIDS PRE PROCEDURE DIAGNOSIS 1. MYALGIA 2. PAIN AT BILATERAL LOWER BACK AREA. POST PROCEDURE DIAGNOSIS 1. MYALGIA 2. PAIN AT BILATERAL LOWER BACK AREA. PROCEDURE TRIGGER POINT INJECTION AT RIGHT AND LEFT LOWER BACK AREA SURGEON DR. TREY QUINTANILLA SKILLED TRADES TEACHER NONE ANESTHESIA LOCAL PRE PROCEDURE NOTE THE PATIENT HAS A HISTORY OF CHRONIC PAIN AT THE RIGHT AND LEFT LOWER BACK AREA. I EVALUATED THE PATIENT AND REVIEWED THE CHART. THERE IS EVIDENCE OF BANDS OF TISSUE WITH RESTRICTION OF MOVEMENT AND PRESENCE OF TRIGGER POINT AT THE AFFECTED AREA. I WENT OVER THE RISKS, ALTERNATIVES, AND BENEFITS ASSOCIATED WITH THIS PROCEDURE. THE PATIENT WOULD LIKE TO PROCEED AND GIVE CONSENT TO PERFORMED THE PROCEDURE. THE PATIENT DENIES UNEXPLAINABLE WEIGHT LOSS, FEVER, CHILLS, OR NEW CHANGES IN URINARY OR BOWEL CONTROL DESCRIPTION OF PROCEDURE THE PATIENT WAS BROUGHT TO THE PROCEDURE ROOM AND PLACED IN THE SITTING POSITION. THE AREA WAS CLEANED WITH ALCOHOL. THE PROCEDURE WAS DONE USING ASEPTIC STERILE TECHNIQUE. I CHECKED LATERALITY AND THE LEVEL WHERE THE PROCEDURE WAS GOING TO BE PERFORMED WITH THE PATIENT AND THE SUPPORTING STAFF AT THE MOMENT OF THE TIME OUT IN THE PROCEDURE ROOM. USING A 25-GAUGE NEEDLE, TRIGGER POINTS WERE INJECTED AT THE RIGHT AND LEFT LOWER BACK AREA WITH A TOTAL OF 40 ML OF BUPIVACAINE 0.25% AND KENALOG 40 MG. THERE WAS NO EVIDENCE OF BLOOD, PARESTHESIA OR CEREBROSPINAL FLUID DURING THE PROCEDURE. THE PATIENT WAS SENT TO THE RECOVERY ROOM. THE PATIENT WAS MOVING THE EXTREMITIES AND DOING WELL. THERE WAS NO COMPLICATION DURING THE PROCEDURE POST PROCEDURE NOTE THE PATIENT WILL BE SEEN IN A FOLLOW UP IN THE NEXT FEW WEEKS. INSTRUCTIONS WERE GIVEN, QUESTIONS WERE ANSWERED, AND THE PATIENT EXPRESSED UNDERSTANDING AND AGREES WITH THE PLAN. I, ANGELLA RODRIGUEZ, DOCUMENTED THE ABOVE INFORMATION ACTING A SCRIBE FOR DR. QUINTANILLA. I HAVE REVIEWED THE ABOVE DOCUMENT, WRITTEN BY ANGELLA KELLEYIBManuel AND I VERIFY THAT IT IS ACCURATE. PROCEDURE CODES 33195 INJ TRIGGER POINT / [facility] [place] DISPOSITION & COMMUNICATION FOLLOW UP 3 WEEKS ELECTRONICALLY SIGNED BY TREY QUINTANILLA MD, MD ON 07/11/2019 AT 04:25 PM EDT DISCLAIMER : THIS IS A VISIT SUMMARY EXTRACTED FROM THE [employer] CHART. IT IS NOT A COPY OF THE [employer] PROGRESS NOTE. MIKE
== END ==
LOC: M PAIN 09:00
PROVIDERS: ATTEND Anesthesiology
DX: M79.18 Myalgia, other site (principal); G47.00 Insomnia, unspecified; F41.9 Anxiety disorder, unspecified; F32.9 Major depressive disorder, single episode, unspecified; F17.210 Nicotine dependence, cigarettes, uncomplicated; M96.1 Postlaminectomy syndrome, not elsewhere classified; M79.671 Pain in right foot; M79.672 Pain in left foot; Z98.49 Cataract extraction status, unspecified eye; Z79.899 Other long term (current) drug therapy; Z88.5 Allergy status to narcotic agent; Z88.6 Allergy status to analgesic agent; Z88.8 Allergy status to other drugs, medicaments and biological substances
CPT/HCPCS: 20552; J3301

== ENCOUNTER → 2019-07-30 | Outpatient (CLI) | payer OTHER ==
[~2019-07-30] MED LIST changes: -BUPIVACAINE HCL 0.25% 10 ML VIAL As Ordered ONE; -BUPIVACAINE HCL 0.25% 30 ML VIAL As Ordered ONE; -TRIAMCINOLONE ACETONIDE SUSP 40 MG/ML VIAL (J3301) As Ordered ONE; -diazePAM 5 MG TAB As Ordered ONE; -oxyCODONE 5MG TAB As Ordered ONE
--- NOTE | 2019-08-03 01:35 | ECWPNPC ---
PATIENT NAME: MARIMAR JARVIS : 1955 GENDER: FEMALE VISIT DATE: 07/30/2019 DISCHARGE DATE: 07/30/19 1202 VISIT LOCKED DATE TIME: PHYSICIAN: STACI MOREJON RESOURCE: STACI MOREJON REASON FOR APPOINTMENT 1. W/C POST TPI HISTORY OF PRESENT ILLNESS HISTORY OF PRESENT ILLNESS: PAIN THE PATIENT DESCRIBES THE PAIN... THE PATIENT DESCRIBES THE PAIN... THE PATIENT DESCRIBES THE PAIN... 63 YEAR OLD FEMALE PATIENT WITH A HISTORY OF CHRONIC LOW BACK PAIN. THE PATIENT DESCRIBES THE PAIN ACHING, SORE, SHARP AND STABBING WITH A PAIN SCORE OF 6/10 DEPENDING ON PHYSICAL ACTIVITY. 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 THE PATIENT RECIEVED TPI AND RATED HER PAIN AT A 8-9/10 PRE PROCEDURE AND A 4-5/10 POST PROCEDURE. FALL RISK SCREENING: SCREENING :NO FALLS REPORTED IN THE LAST YEAR CURRENT MEDICATIONS TAKING CELEXA 40 MG TABLET 1 TABLET ORALLY TWICE DAILY TAKING GABAPENTIN 100 MG CAPSULE 1 CAPSULE ORALLY THREE TIMES DAILY TAKING ACETAMINOPHEN 325 MG TABLET 1 TABLET NEEDED ORALLY EVERY 4 HRS TAKING IBUPROFEN 800 MG TABLET 1 TABLET WITH FOOD OR MILK ORALLY EVERY 6 HOURS NEEDED FOR PAIN MDD3, NOTES: NONE RECENT NOT-TAKING FLONASE 50 MCG/ACT SUSPENSION 1 SPRAY IN EACH NOSTRIL NASALLY ONCE A DAY NOT-TAKING DICLOFENAC SODIUM 50 MG TABLET DELAYED RELEASE 1 TABLET WITH FOOD OR MILK ORALLY THREE TIMES A DAY NOT-TAKING TRAMADOL HCL 50 MG TABLET 1 TABLET NEEDED ORALLY DAILY FOR PAIN MDD1 NOT-TAKING AZELASTINE HCL 0.1 % SOLUTION 1 PUFF IN EACH NOSTRIL NASALLY TWICE A DAY, NOTES: 0700 NOT-TAKING SOMA 350 MG TABLET 1 TABLET NEEDED ORALLY FOR SPASMS AND PAIN BEFORE BEDTIME NOT-TAKING XANAX 1 MG TABLET 1 TABLET ORALLY TWICE A DAY NEEDED MEDICATION LIST REVIEWED AND RECONCILED WITH THE PATIENT PAST MEDICAL HISTORY INSOMNIA BILATERAL FOOT PAIN ANXIETY DEPRESSION POST LAMINECTOMY PAIN BACK & LEG PAIN ALLERGIES NAPROXEN: ORBITAL PRESSURE - ALLERGY TRAMADOL HCL: NAUSEA/VOMITING - SIDE EFFECTS KETOROLAC TROMETHAMINE: NAUSEA/VOMITING - SIDE EFFECTS DICLOFENAC: NAUSEA/VOMITING - SIDE EFFECTS SURGICAL HISTORY LAMINECTOMY 07/16 OR C SECTION C SECTION CATARACTS SURGERY JUN 2018 FAMILY HISTORY FATHER: MOTHER: PARENTS DUE TO MVA. SOCIAL HISTORY GENERAL: TOBACCO USE ARE YOU A:CURRENT SMOKER ARE YOU INTERESTED IN QUITTING?NOT READY TO QUIT COUNSELED THE PATIENT ON SMOKING EFFECTS, EDUCATION [id number]/25/2019 HOW MANY CIGARETTES A DAY DO YOU SMOKE?6-10 HOW SOON AFTER YOU WAKE UP DO YOU SMOKE YOUR FIRST CIGARETTE?6-30 MIN HOW OFTEN DO YOU SMOKE CIGARETTES?EVERY DAY PATIENT COUNSELED ON THE DANGERS OF TOBACCO USE AND URGED TO QUIT:07/30/2019 OTHERS AT HOME: NONE. EDUCATION LEVEL OF EDUCATION:COLLEGE DIET: REGULAR. LANGUAGE LANGUAGES SPOKEN:CROATIAN DOMESTIC VIOLENCE DO YOU FEEL SAFE IN YOUR ENVIRONMENT?YES RECREATIONAL DRUG USE DENIES. EXERCISE: NO REGULAR EXERCISE. 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 PAIN CLINIC PFS, CLERGY, PUBLIC HEALTH REFERRALS PFS REFERRAL NEEDED?NO CLERGY REFERRAL NEEDED?NO PUBLIC HEALTH REFERRAL NEEDED?NO WAS THE PROVIDER NOTIFIED OF ANY PERTINENT INFO?YES HAS THE PATIENT BEEN EDUCATED REGARDING HIS/HER PLAN OF CARE?YES HAS THE PATIENT BEEN EDUCATED REGARDING PAIN, THE RISK FOR PAIN, THE IMPORTANCE OF EFFECTIVE PAIN MANAGEMENT, AND THE PAIN ASSESSMENT PROCESS?YES LATEX QUESTIONNAIRE LATEX ALLERGY : HAVE YOU EVER DEVELOPED ANY TYPE OF REACTION AFTER HANDLING LATEX PRODUCTS SUCH RUBBER GLOVES, CONDOMS, DIAPHRAGMS, BALLOONS, SOCKS, OR UNDERWEAR?NO LATEX ALLERGY : HAVE YOU EVER DEVELOPED ANY TYPE OF REACTION DURING OR AFTER DENTAL APPOINTMENT, VAGINAL/RECTAL EXAMINATION, SURGICAL PROCEDURE, OR ANY OTHER EXPOSURE?NO LATEX RISK : HAVE YOU EVER HAD ANY DIFFICULTY BREATHING OR HIVES AFTER EATING OR HANDLING ANY FRUITS, OR VEGETABLES; SUCH KIWI, BANANAS, STONE FRUITS, OR CHESTNUTSNO LATEX RISK : DO YOU HAVE A PREVIOUS PERSONAL HISTORY OF MORE THAN NINE SURGERIES, SPINA BIFIDA, OR REPEATED CATHERIZATIONS? NO LATEX RISK : ARE YOU FREQUENTLY EXPOSED TO LATEX PRODUCTS IN YOUR OCCUPATION?NO DATE ASKED : 02/24/2019 CAFFEINE CAFFEINE USE?NO ADVANCE DIRECTIVE ADVANCE DIRECTIVE DISCUSSED WITH PATIENT:YES PT HAS HEALTH CARE PROXY AT HER YARSANISM. CONGREGATION [id number] BUDDHIST MARITAL STATUS: SINGLE. ALCOHOL SCREENING DID YOU HAVE A DRINK CONTAINING ALCOHOL IN THE PAST YEAR? YES , POINTS 0 , INTERPRETATION NEGATIVE. OCCUPATION: RETIRED. REVIEWED WITH PT 08/31/18 1141 BVRVIEWED WITH PATIENT 09/18/18 1200 LASREVIEWED WITH PATIENT 02/24/19 1337 JSREVIEWED WITH PT 04/02/19 0851 BVREVIEWED WITH PATIENT 06/10/19 1338 NLJREVIEWED WITH PATIENT 06/28/19 0915 LASREVIEWED WITH PATIENT 07/10/19 1115 JS. HOSPITALIZATION/MAJOR DIAGNOSTIC PROCEDURE SURGERY 07/16 OR REVIEW OF SYSTEMS REVIEWED BY: PROVIDER: RAJWINDER GOMEZ . CONSTITUTIONAL: ANY CHANGE IN YOUR MEDICAL CONDITION? NO . CHILLS NO . FEVER NO . INFECTION: DO YOU HAVE NEW INFECTIONS? NO . DO YOU HAVE HISTORY OF MRSA? NO . MUSCULOSKELETAL: ANY NEW PATTERNS OF PAIN OR NUMBNESS? NO . GASTROENTEROLOGY: ANY NEW CHANGE IN BOWEL CONTROL? NO . GENITOURINARY: ANY NEW CHANGE IN BLADDER CONTROL? NO . IS THERE A CHANCE YOU COULD BE ? NO . HEMATOLOGY/LYMPH: DO YOU TAKE ANY BLOOD THINNERS? (FOR EXAMPLE- COUMADIN, PLAVIX, AGGRENOX, PLATEL, PRADAXA, OR XARELTO) NO . WHEN WAS YOUR LAST DOSE? DATE: TIME: . NEUROLOGY: HAVE YOU FALLEN IN THE PAST 12 MONTHS? YES, STATES PRIOR TO LAST VISIT, DISCUSSED AT PREVIOUS VISIT . ANY NEW EXTREMITY NUMBNESS OR WEAKNESS? NO . CARDIOLOGY: DO YOU HAVE A PACEMAKER OR DEFIBRILLATOR? NO . RESPIRATORY: HAVE YOU BEEN SICK IN THE PAST WEEK? NO . FEVER NO . FLU LIKE SYMPTOMS? NO . COUGH NO . INTEGUMENTARY: DO YOU HAVE ANY RASHES OR OPEN SORES? NO . ALLERGIC/IMMUNO: ARE YOU ALLERGIC TO IV DYE? NO . ANY NEW ALLERGIES? NO . PSYCHIATRIC: DO YOU HAVE THOUGHTS OF HURTING YOURSELF OR SOMEONE ELSE? NO . ARE YOU ABUSED, NEGLECTED, OR IN AN UNSAFE ENVIRONMENT? NO . ENDOCRINOLOGY: ARE YOU DIABETIC? NO . OTHER: DO YOU NEED ANY PRESCRIPTIONS? NO . IF YES, PLEASE LIST: ____ . ANY NEW PROBLEMS WITH YOUR MEDICATIONS? NO . WHEN DID YOU LAST EAT? ____ . WHEN DID YOU LAST DRINK? ____ . WHAT DID YOU LAST DRINK? ____ . NAME OF PERSON DRIVING YOU HOME? ____ . DO YOU HAVE ANY OTHER QUESTIONS OR CONCERNS NO . VITAL SIGNS WT 148.2 LBS, HT 66 IN, BMI 23.92 INDEX, BP 116/66 MM HG, HR 68 /MIN, RR 18 /MIN, TEMP 96.8 F, OXYGEN SAT % 97%, SAFE IN ENV? (Y/N) YES, NA INITIALS TN 11:16, REVIEWED BY: JS. EXAMINATION GENERAL EXAMINATION: GENERALNO ACUTE DISTRESS, WELL NOURISHED AND HYDRATED. PSYCHAPPROPRIATE MOOD AND AFFECT . LUNGS:CLEAR TO AUSCULTATION BILATERALLY, NO WHEEZES, RHONCHI, RALES. HEART:NO MURMURS, REGULAR RATE AND RHYTHM. BACK:POINT TENDER L4-L5 L5-S1, STARTING SKIN SHOWS NO ERYTHEMA, ECCHYMOSIS, INCREASED WARMTH, AND/OR SKIN ERUPTIONS NOTED. POSITIVE MODIFIED SLR ON THE LEFT SIDE. . MUSCULOSKELETAL:NOTABLE WEAKNESS OF THE LEFT LOWER EXTREMITY RIGHT SIDE WITHIN NORMAL LIMITS . ASSESSMENTS LUMBAR POST-LAMINECTOMY SYNDROME - M96.1 (PRIMARY) TREATMENT LUMBAR POST-LAMINECTOMY SYNDROME CONTINUE GABAPENTIN CAPSULE, 100 MG, 1 CAPSULE IN AM AND AFTERNOON THEN 2 AT BEDTIME, ORALLY, THREE TIMES DAILY, 30 DAYS, 120 NOTES: CAUDAL EPIDURAL. CLINICAL NOTES: 64-YEAR-OLD FEMALE IN FOR POST TPI FOLLOW-UP. GIVEN PRESENTING SYMPTOMS AND RESULTS OF PHYSICAL EXAMINATION RECOMMENDED CAUDAL EPIDURAL WITH POSTPROCEDURAL FOLLOW-UP. FURTHER RECOMMENDED INCREASING GABAPENTIN. PATIENT HAS EXPRESSED UNDERSTANDING OF AND WAS IN AGREEMENT WITH TREATMENT PLAN. GIVEN TIME TO ASK QUESTIONS AND EXPRESS CONCERNS. PROCEDURES PN WORKMANS' COMP OPINION IN YOUR OPINION, WAS THE INCIDENT THAT THE PATIENT DESCRIBED THE COMPETENT MEDICAL CAUSE OF THIS INJURY/ILLNESS? YES ARE THE PATIENT'S COMPLAINTS CONSISTENT WITH HIS/HER HISTORY OF THE INJURY/ILLNESS? YES IS THE PATIENT'S HISTORY OF THE INJURY/ILLNESS CONSISTENT WITH YOUR OBJECTIVE FINDING? YES WHAT IS THE PERCENTAGE OF TEMPORARY IMPAIRMENT? TOTAL = 100% IS THE PATIENT WORKING? NO DOCTOR ON SITE: TREY SIERRA MD PREVENTIVE MEDICINE PAIN CLINIC TEACHING: PROCEDURE TEACHING PRINTED AND REVIEWED INFORMATION ON CAUDAL EPIDURAL STEROID INJECTION. ALSO REVIEWED PRE-PROCEDURE INSTRUCTIONS. PATIENT VERBALIZED AN UNDERSTANDING. SHANITA AVILA 07/30/2019 12:03:34 PM > . PROCEDURE CODES FA211 ESTABILISHED PATIENT [facility] CHARGE DISPOSITION & COMMUNICATION FOLLOW UP POST PROCEDURE (REASON: CAUDAL EPIDURAL WITH IV SEDATION) ELECTRONICALLY SIGNED BY RAMONA FRANK ON 08/02/2019 AT 08:44 AM EDT DISCLAIMER : THIS IS A VISIT SUMMARY EXTRACTED FROM THE [employer] CHART. IT IS NOT A COPY OF THE [employer] PROGRESS NOTE. MIKE
== END ==
LOC: M PAIN 11:00
PROVIDERS: ATTEND Family Medicine
DX: M96.1 Postlaminectomy syndrome, not elsewhere classified (principal); G47.00 Insomnia, unspecified; Z86.59 Personal history of other mental and behavioral disorders; F17.210 Nicotine dependence, cigarettes, uncomplicated; Z88.5 Allergy status to narcotic agent; Z88.6 Allergy status to analgesic agent; Z79.899 Other long term (current) drug therapy

== ENCOUNTER → 2019-09-30 | Outpatient (CLI) | payer MEDICARE, MEDICAID ==
--- NOTE | 2019-09-30 15:49 | REP ---
Clinical: Pain. Technique: AP, lateral, bilateral oblique views of the right foot. Findings: Moderate hallux valgus deformity is appreciated along with underlying age-related changes. No acute fracture dislocation. Impression: generalized age-related changes and moderate hallux valgus deformity. Electronically Signed by Amandeep Ybarra MD 09/30/2019 03:41 P
== END ==
LOC: M WUC 15:31
PROVIDERS: ATTEND Physician Assistant
DX: M20.11 Hallux valgus (acquired), right foot (principal); M79.671 Pain in right foot

== ENCOUNTER → 2020-06-22 | Outpatient (CLI) | payer MEDICARE, MEDICAID | LOC: M PAIN 14:28 | PROVIDERS: ATTEND Family Medicine | DX: M53.3 Sacrococcygeal disorders, not elsewhere classified (principal) ==

== ENCOUNTER → 2020-06-23 | Outpatient (CLI) | payer OTHER ==
--- NOTE | 2020-07-04 16:58 | REP ---
PELVIS: SINGLE VIEW HISTORY: Coccydynia after a fall. FINDINGS: AP view of the pelvis shows an intact bony pelvic ring. No sacral or coccygeal fracture is visible on this AP radiograph. No hip fracture is seen. SI joints are unremarkable. Visualized bowel gas pattern is normal. IMPRESSION: Negative radiograph of the pelvis. MTDD
--- NOTE | 2020-07-04 16:58 | REP ---
LUMBAR SPINE SERIES: 5-VIEWS HISTORY: Low back pain. Coccydynia after a fall. COMPARISON: Lumbar spine radiographs from 06/10/2019. FINDINGS: Lumbar vertebral body heights are preserved. No fracture or collapse is seen. The visualized sacrum and SI joints are unremarkable. There is mild disc space narrowing at L5-S1, L3-4, L2-3, and L1-2 with associated spurring consistent with degenerative disc disease. Mild facet hypertrophy and sclerosis are present bilaterally at L5-S1. Vascular calcification is seen in a normal caliber aorta. The pedicles and posterior elements are intact. No transverse process or sacral fracture is seen. Psoas margins are symmetric. IMPRESSION: No fracture noted. Degenerative spondylosis changes similar to the 06/10/2019 prior study. MTDD
--- NOTE | 2020-07-04 16:59 | REP ---
SACRUM AND COCCYX: 3-VIEWS HISTORY: Coccydynia after a fall. FINDINGS: AP two angled and lateral views of the sacrum and coccyx show no evidence of sacral fracture. Sacral alar lines are intact on the frontal views. SI joints are normally aligned. No coccygeal displacement or fracture is seen on lateral radiograph. The presacral soft tissues are not widened. There is no bony destructive lesion evident. IMPRESSION: Negative sacral and coccygeal radiographs. No fracture seen. MTDD
== END ==
LOC: M RAD 13:25
PROVIDERS: ATTEND Family Medicine
DX: M53.3 Sacrococcygeal disorders, not elsewhere classified (principal); M51.36 Other intervertebral disc degeneration, lumbar region

== ENCOUNTER → 2020-07-01 | Outpatient (CLI) | payer MEDICARE, MEDICAID | LOC: M LABSMTC 11:52 | PROVIDERS: ATTEND Anesthesiology | DX: Z20.828 Contact with and (suspected) exposure to other viral communicable diseases (principal) | CPT/HCPCS: C9803; U0003 ==

== ENCOUNTER → 2020-07-05 | Outpatient (CLI) | payer MEDICARE, MEDICAID ==
--- NOTE | 2020-07-06 16:51 | ECWPNPC ---
PATIENT NAME: MAIRMAR JARVIS : 1955 GENDER: FEMALE VISIT DATE: 07/05/2020 DISCHARGE DATE: 07/05/20 1621 VISIT LOCKED DATE TIME: PHYSICIAN: TREY QUINTANILLA MD RESOURCE: TREY QUINTANILLA MD REASON FOR APPOINTMENT 1. W/C PRE-SEDATE FOR SACROCOCCYGEAL BLOCK W/ IV SEDATE HISTORY OF PRESENT ILLNESS GENERAL: 63-YEAR-OLD FEMALE PATIENT WITH A HISTORY OF CHRONIC LOW BACK AND SACRAL PAIN. THE PATIENT DESCRIBES THE PAIN ACHING, BURNING, SORE, TENDER AND CONTINUOUS WITH A PAIN SCORE RANGING FROM 5-10/10 DEPENDING ON PHYSICAL ACTIVITY. 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 THE PATIENT SAYS SHE HAS DIFFICULTY DOING ACTIVITIES OF DAILY LIVING SUCH COOKING, CLEANING AND GROCERY SHOPPING. THE PATIENT HAS TRIED PHYSICAL THERAPY IN THE PAST BUT STATES IT DID NOT HELP. PATIENT DENIES UNEXPLAINABLE WEIGHT LOSS, FEVER, CHILLS, NEW CHANGES ON HER URINARY OR BOWEL CONTROL. FALL RISK SCREENING: SCREENING :TWO OR MORE FALLS WITHOUT INJURY IN THE PAST YEAR PAIN SCREENING: PATIENT HAS A COMPLAINT OF ACUTE OR CHRONIC PAIN :YES LOCATION OF PAIN:LOW BACK, LEFT HIP, THIGH(S), OTHER: LEFT BUTTOCKS INTENSITY OF PAIN (SCALE OF 1 TO 10):5 WHAT DOES YOUR PAIN FEEL LIKE:ACHING, OTHER DULL DURATION:STEADY, INTERMITTENT PAIN IS INCREASED BY:ACTIVITIES, PROLONGED STANDING PROLONGED SITTING PAIN IS DECREASED BY:USE OF PAIN MEDICATIONS, OTHERS WALKING NURSING NOTE: -. PAIN CENTER INTAKE QUESTIONS: DO YOU HAVE A HISTORY OF MRSA? :NO DO YOU TAKE A BLOOD THINNERS? :NO DO YOU HAVE ANY BLEEDING DISORDERS? :NO ANY NEW NUMBNESS OR WEAKNESS IN YOUR LEGS OR ARMS? :NO LEFT SHOULDER WEAKNESS AND PAIN ANY PACEMAKER,DEFIBRILLATOR, OR DORSAL COLUMN STIMULATOR? :NO DO YOU HAVE ANY RASHES OR OPEN SORES? :NO ARE YOU ALLERGIC TO IV DYE? :NO ARE YOU DIABETIC? :NO ANY NEW PROBLEMS WITH YOUR MEDICATIONS? :NO HAVE YOU RECEIVED A VACCINE IN THE PAST 30 DAYS? :NO DO YOU PLAN TO RECEIVE A VACCINE IN THE NEXT 21 DAYS? :NO DO YOU NEED ANY PRESCRIPTION? :NO DO YOU TAKE ANY IMMUNOSUPPRESSIVE MEDICATIONS? :NO IS THERE A CHANCE YOU COULD BE ? :NO ARE YOU BREAST FEEDING? :NO CURRENT MEDICATIONS TAKING CELEXA 40 MG TABLET 1 TABLET ORALLY TWICE DAILY TAKING ACETAMINOPHEN 325 MG TABLET 1 TABLET NEEDED ORALLY EVERY 4 HRS TAKING SOMA 350 MG TABLET 1 TABLET NEEDED ORALLY BID NOT-TAKING IBUPROFEN 800 MG TABLET 1 TABLET WITH FOOD OR MILK ORALLY EVERY 6 HOURS NEEDED FOR PAIN MDD3, NOTES: NONE RECENT NOT-TAKING GABAPENTIN 100 MG CAPSULE 1 CAPSULE IN AM AND AFTERNOON THEN 2 AT BEDTIME ORALLY THREE TIMES DAILY NOT-TAKING FLONASE 50 MCG/ACT SUSPENSION 1 SPRAY IN EACH NOSTRIL NASALLY ONCE A DAY NOT-TAKING DICLOFENAC SODIUM 50 MG TABLET DELAYED RELEASE 1 TABLET WITH FOOD OR MILK ORALLY THREE TIMES A DAY NOT-TAKING TRAMADOL HCL 50 MG TABLET 1 TABLET NEEDED ORALLY DAILY FOR PAIN MDD1 NOT-TAKING AZELASTINE HCL 0.1 % SOLUTION 1 PUFF IN EACH NOSTRIL NASALLY TWICE A DAY, NOTES: 0700 NOT-TAKING SOMA 350 MG TABLET 1 TABLET NEEDED ORALLY FOR SPASMS AND PAIN BEFORE BEDTIME NOT-TAKING XANAX 1 MG TABLET 1 TABLET ORALLY TWICE A DAY NEEDED MEDICATION LIST REVIEWED AND RECONCILED WITH THE PATIENT PAST MEDICAL HISTORY INSOMNIA BILATERAL FOOT PAIN ANXIETY DEPRESSION POST LAMINECTOMY PAIN BACK & LEG PAIN ALLERGIES NAPROXEN: ORBITAL PRESSURE - ALLERGY SURGICAL HISTORY LAMINECTOMY 07/16 OR C SECTION C SECTION CATARACTS SURGERY JUN 2018 FAMILY HISTORY FATHER: MOTHER: PARENTS DUE TO MVA. SOCIAL HISTORY GENERAL: TOBACCO USE ARE YOU A:CURRENT SMOKER ARE YOU INTERESTED IN QUITTING?THINKING ABOUT QUITTING COUNSELED THE PATIENT ON SMOKING CESSATION, EDUCATION [id number]/30/2020 HOW MANY CIGARETTES A DAY DO YOU SMOKE?6-10 HOW SOON AFTER YOU WAKE UP DO YOU SMOKE YOUR FIRST CIGARETTE?6-30 MIN HOW OFTEN DO YOU SMOKE CIGARETTES?EVERY DAY PATIENT COUNSELED ON THE DANGERS OF TOBACCO USE AND URGED TO QUIT:07/05/2020 LATEX QUESTIONNAIRE LATEX ALLERGY : HAVE YOU EVER DEVELOPED ANY TYPE OF REACTION AFTER HANDLING LATEX PRODUCTS SUCH RUBBER GLOVES, CONDOMS, DIAPHRAGMS, BALLOONS, SOCKS, OR UNDERWEAR?NO LATEX ALLERGY : HAVE YOU EVER DEVELOPED ANY TYPE OF REACTION DURING OR AFTER DENTAL APPOINTMENT, VAGINAL/RECTAL EXAMINATION, SURGICAL PROCEDURE, OR ANY OTHER EXPOSURE?NO LATEX RISK : HAVE YOU EVER HAD ANY DIFFICULTY BREATHING OR HIVES AFTER EATING OR HANDLING ANY FRUITS, OR VEGETABLES; SUCH KIWI, BANANAS, STONE FRUITS, OR CHESTNUTSNO LATEX RISK : DO YOU HAVE A PREVIOUS PERSONAL HISTORY OF MORE THAN NINE SURGERIES, SPINA BIFIDA, OR REPEATED CATHERIZATIONS? NO LATEX RISK : ARE YOU FREQUENTLY EXPOSED TO LATEX PRODUCTS IN YOUR OCCUPATION?NO DATE ASKED : 07/05/2020 ALCOHOL SCREENING DID YOU HAVE A DRINK CONTAINING ALCOHOL IN THE PAST YEAR?NO POINTS0 INTERPRETATIONNEGATIVE RECREATIONAL DRUG USE DENIES. CAFFEINE CAFFEINE USE?YES 1 CUP DAILY CAODAISM [id number] ISLAM LANGUAGE LANGUAGES SPOKEN:PERSIAN EDUCATION LEVEL OF EDUCATION:COLLEGE LEARNING BARRIERS / SPECIAL NEEDS CHANGE FROM LAST VISIT?NO BARRIERS TO LEARNING?NO HEARING IMPAIRED?NO VISION IMPAIRED?YES :CORRECTIVE LENSES COGNITIVELY IMPAIRED?NO READINESS TO LEARN?YES LEARNING PREFERENCES?YES :DEMONSTRATION/VERBAL INSTRUCTION LEARNING CAPABILITIES PRESENT?YES EMOTIONAL BARRIERS?NO SPECIAL DEVICES?NO CAR FERRY CAPTAIN NEEDED?NO DOMESTIC VIOLENCE DO YOU FEEL SAFE IN YOUR ENVIRONMENT?YES OCCUPATION: RETIRED. DIET: REGULAR. EXERCISE: NO REGULAR EXERCISE. MARITAL STATUS: SINGLE. OTHERS AT HOME: FOSTER CHILD. PAIN CLINIC PFS, CLERGY, PUBLIC HEALTH REFERRALS PFS REFERRAL NEEDED?NO CLERGY REFERRAL NEEDED?NO PUBLIC HEALTH REFERRAL NEEDED?NO WAS THE PROVIDER NOTIFIED OF ANY PERTINENT INFO?YES HAS THE PATIENT BEEN EDUCATED REGARDING HIS/HER PLAN OF CARE?YES HAS THE PATIENT BEEN EDUCATED REGARDING PAIN, THE RISK FOR PAIN, THE IMPORTANCE OF EFFECTIVE PAIN MANAGEMENT, AND THE PAIN ASSESSMENT PROCESS?YES ADVANCE DIRECTIVE ADVANCE DIRECTIVE DISCUSSED WITH PATIENT:YES PT HAS HEALTH CARE PROXY AT HER SCIENTOLOGY. REVIEWED WITH PT 08/31/18 1141 BVRVIEWED WITH PATIENT 09/18/18 1200 LASREVIEWED WITH PATIENT 02/24/19 1337 JSREVIEWED WITH PT 04/02/19 0851 BVREVIEWED WITH PATIENT 06/10/19 1338 NLJREVIEWED WITH PATIENT 06/28/19 0915 LASREVIEWED WITH PATIENT 07/10/19 1115 JSREVIEWED WITH PATIENT 07/05/2020 1546 JS. HOSPITALIZATION/MAJOR DIAGNOSTIC PROCEDURE SURGERY 07/16 OR REVIEW OF SYSTEMS GLAUCOMA: NOTHYROID DISEASE: NOHYPERTENSION: NOHEART DISEASE: NOLUNG DISEASE: NODIABETES: NOGI DISEASE: NO LIVER DISEASE: NO KIDNEY DISEASE: NOSTERIOD USE: NONEUROLOGICAL DISEASE: NOBACK PROBLEMS: YES, PAINEXTREMITIES: YES, PAIN IN LEGSGENITOURINARY: NOBLEEDING DISORDER: NOASA CLASS: IIAIRWAY CLASS: II. VITAL SIGNS WT 149.0 LBS, HT 66 IN, BMI 24.05 INDEX, BP 122/63 MM HG, HR 70 /MIN, RR 18 /MIN, TEMP 98.0 F, OXYGEN SAT % 97%, SAFE IN ENV? (Y/N) Y, NA INITIALS AW 1511, REVIEWED BY: JS. EXAMINATION GENERAL: THE PATIENT IS ALERT, ORIENTED TIMES THREE AND COOPERATIVE. HEART SHOWS REGULAR RHYTHM, NO MURMURS AND NO GALLOPS. LUNGS ARE CLEAR TO AUSCULTATION. HER WALK IS ANTALGIC. SHE SEEMS TO BE LIMPING A LITTLE BIT FROM THE LEFT LEG. THERE IS TENDERNESS OVER THE LOW BACK IN THE AREA OF THE COCCYX. IT IS VERY TENDER TO TOUCH. THE LEFT LEG IS WEAKER THAN THE RIGHT LEG IN FLEXION AND EXTENSION. MRI OF THE LUMBAR DATED 03/23/2019 SHOWS LAMINECTOMY CHANGES AT L3-L4 AND BULGING DISC AT MUSCLE ISLE LEVELS. 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 JARVIS REGARDING HER TREATMENT OPTIONS AND CARE. WE ARE GOING TO MOVE FORWARD WITH A BILATERAL SACROCOCCYGEAL LIGAMENT BLOCK WITH IV SEDATION DUE TO ANXIETY AND DISCOMFORT ASSOCIATED WITH THE PROCEDURE. THE PATIENT KNOWS TO CALL THE OFFICE IF SHE HAS ANY QUESTIONS OR CONCERNS. THE PATIENT UNDERSTANDS AND IS IN AGREEMENT WITH THE TREATMENT PLAN. LARY SALINAS, DOCUMENTED THE ABOVE INFORMATION ACTING A SCRIBE FOR DR. QUINTANILLA. I HAVE REVIEWED THE ABOVE DOCUMENT, WRITTEN BY LARY SALINSA, CERTIFIED ENERGY MANAGER, AND I VERIFY THAT IT IS ACCURATE. PROCEDURES PN WORKMANS' COMP OPINION IN YOUR OPINION, WAS THE INCIDENT THAT THE PATIENT DESCRIBED THE COMPETENT MEDICAL CAUSE OF THIS INJURY/ILLNESS? YES ARE THE PATIENT'S COMPLAINTS CONSISTENT WITH HIS/HER HISTORY OF THE INJURY/ILLNESS? YES IS THE PATIENT'S HISTORY OF THE INJURY/ILLNESS CONSISTENT WITH YOUR OBJECTIVE FINDING? YES WHAT IS THE PERCENTAGE OF TEMPORARY IMPAIRMENT? TOTAL = 100% . IS THE PATIENT WORKING? NO . DOCTOR ON SITE: TREY SIERRA MD PROCEDURE CODES 25065 OFFICE/OUTPATIENT VISIT EST DISPOSITION & COMMUNICATION ELECTRONICALLY SIGNED BY TREY QUINTANILLA MD, MD ON 07/06/2020 AT 04:40 PM EDT DISCLAIMER : THIS IS A VISIT SUMMARY EXTRACTED FROM THE [employer] CHART. IT IS NOT A COPY OF THE [employer] PROGRESS NOTE. MIKE
== END ==
LOC: M PAIN 15:00
PROVIDERS: ATTEND Anesthesiology
DX: M53.3 Sacrococcygeal disorders, not elsewhere classified (principal); M51.16 Intervertebral disc disorders with radiculopathy, lumbar region; G89.29 Other chronic pain; G47.00 Insomnia, unspecified; Z86.59 Personal history of other mental and behavioral disorders; F17.210 Nicotine dependence, cigarettes, uncomplicated; Z88.6 Allergy status to analgesic agent; Z79.899 Other long term (current) drug therapy

== ENCOUNTER → 2020-07-06 | Outpatient (CLI) | payer MEDICARE, MEDICAID ==
[~2020-07-06] MED LIST changes: +BUPIVACAINE HCL 0.25% 30ML VIAL As Ordered ONE; +ISOVUE-M 300 61% 15ML VIAL As Ordered ONE; +LIDOCAINE 1% SDV 30ML VIAL As Ordered ONE; +MIDAZOLAM INJ 2MG/2ML VIAL (J2250 PER 1MG) As Ordered ONE; +TRIAMCINOLONE ACETONIDE SUSP 40 MG/ML VIAL (J3301) As Ordered ONE; +fentaNYL 100 MCG/2 ML INJECTION (J3010) As Ordered ONE
--- NOTE | 2020-07-06 16:53 | ECWPNPC ---
PATIENT NAME: MARIMAR JARVIS : 1955 GENDER: FEMALE VISIT DATE: 07/06/2020 DISCHARGE DATE: 07/06/20 1034 VISIT LOCKED DATE TIME: PHYSICIAN: TREY QUINTANILLA MD RESOURCE: TREY QUINTANILLA MD REASON FOR APPOINTMENT 1. W/C SACROCOCCYGEAL BLOCK W/ IV SEDATION HISTORY OF PRESENT ILLNESS GENERAL: -. FALL RISK SCREENING: SCREENING :TWO OR MORE FALLS WITH INJURY IN THE PAST YEAR OBTAINED OUTPATIENT XRAYS WHICH PER PATIENT WERE NEGATIVE. LAST FALL DAY PAIN SCREENING: PATIENT HAS A COMPLAINT OF ACUTE OR CHRONIC PAIN :YES LOCATION OF PAIN:LOW BACK LOW BACK, LEFT LEG ANTERIOR AND POSTERIOR TO CALF AND JOHNSON. INTENSITY OF PAIN (SCALE OF 1 TO 10):8 WHAT DOES YOUR PAIN FEEL LIKE:BURNING, CONTINOUS, ACHING DURATION:CONSTANT PAIN IS INCREASED BY:ACTIVITIES, PROLONGED STANDING PAIN IS DECREASED BY:USE OF PAIN MEDICATIONS PLAN/GOALS/TREATMENT/INTERVENTION/FOLLOW UP:SEE PLAN NURSING NOTE: -. PAIN CENTER INTAKE QUESTIONS: DO YOU HAVE A HISTORY OF MRSA? :NO DO YOU TAKE A BLOOD THINNERS? :NO DO YOU HAVE ANY BLEEDING DISORDERS? :NO ANY NEW NUMBNESS OR WEAKNESS IN YOUR LEGS OR ARMS? :YES PATIENT REPORTS NEW NUMBNESS IN LEFT SHOULDER, PATIENT REPORTS "LOSING STRENGTH" ANY PACEMAKER,DEFIBRILLATOR, OR DORSAL COLUMN STIMULATOR? :NO DO YOU HAVE ANY RASHES OR OPEN SORES? :NO ARE YOU ALLERGIC TO IV DYE? :NO ARE YOU DIABETIC? :NO ANY NEW PROBLEMS WITH YOUR MEDICATIONS? :NO HAVE YOU RECEIVED A VACCINE IN THE PAST 30 DAYS? :NO DO YOU PLAN TO RECEIVE A VACCINE IN THE NEXT 21 DAYS? :NO DO YOU TAKE ANY IMMUNOSUPPRESSIVE MEDICATIONS? :NO ANY HISTORY OF SEIZURES? :NO ANY HISTORY OF CARDIAC ISSUES OR EVENTS? :NO DO YOU HAVE SLEEP APNEA? :YES PER PATIENT "TEXTBOOK" DO YOU WEAR A CPAP?NO ANY RECENT HEAD INJURY? :NO DO YOU HAVE ANY NEW INFECTIONS? :NO IS THERE A CHANCE YOU COULD BE ? :NO ARE YOU BREAST FEEDING? :NO WHEN DID YOU LAST EAT? : 07/05/20 1500 WHEN DID YOU LAST DRINK? : 07/06/20 3575 WHAT DID YOU LAST DRINK? : WATER NAME OF PERSON DRIVING YOU HOME? : BRENDAN (FRIEND) [phone] DO YOU HAVE ANY OTHER QUESTIONS OR CONCERNS? : NO CURRENT MEDICATIONS TAKING CELEXA 40 MG TABLET 1 TABLET ORALLY TWICE DAILY, NOTES: 07/05/201929 TAKING ACETAMINOPHEN 325 MG TABLET 1 TABLET NEEDED ORALLY EVERY 4 HRS, NOTES: NOT RECENTLY TAKING SOMA 350 MG TABLET 1 TABLET NEEDED ORALLY BID, NOTES: NOT RECENTLY TAKING TRAZODONE HCL 50 MG TABLET 1 TABLET AT BEDTIME NEEDED ORALLY ONCE A DAY, NOTES: 07/05/201929 NOT-TAKING IBUPROFEN 800 MG TABLET 1 TABLET WITH FOOD OR MILK ORALLY EVERY 6 HOURS NEEDED FOR PAIN MDD3, NOTES: NONE RECENT NOT-TAKING GABAPENTIN 100 MG CAPSULE 1 CAPSULE IN AM AND AFTERNOON THEN 2 AT BEDTIME ORALLY THREE TIMES DAILY NOT-TAKING FLONASE 50 MCG/ACT SUSPENSION 1 SPRAY IN EACH NOSTRIL NASALLY ONCE A DAY NOT-TAKING DICLOFENAC SODIUM 50 MG TABLET DELAYED RELEASE 1 TABLET WITH FOOD OR MILK ORALLY THREE TIMES A DAY NOT-TAKING TRAMADOL HCL 50 MG TABLET 1 TABLET NEEDED ORALLY DAILY FOR PAIN MDD1 NOT-TAKING AZELASTINE HCL 0.1 % SOLUTION 1 PUFF IN EACH NOSTRIL NASALLY TWICE A DAY, NOTES: 0700 NOT-TAKING SOMA 350 MG TABLET 1 TABLET NEEDED ORALLY FOR SPASMS AND PAIN BEFORE BEDTIME NOT-TAKING XANAX 1 MG TABLET 1 TABLET ORALLY TWICE A DAY NEEDED MEDICATION LIST REVIEWED AND RECONCILED WITH THE PATIENT PAST MEDICAL HISTORY INSOMNIA BILATERAL FOOT PAIN ANXIETY DEPRESSION POST LAMINECTOMY PAIN BACK & LEG PAIN PTSD FROM PREVIOUS PAIN PROCEDURES ALLERGIES NAPROXEN: ORBITAL PRESSURE - ALLERGY SURGICAL HISTORY LAMINECTOMY 07/16 OR 12 C SECTION C SECTION CATARACTS SURGERY JUN 2018 FAMILY HISTORY FATHER: MOTHER: PARENTS DUE TO MVA. SOCIAL HISTORY GENERAL: TOBACCO USE ARE YOU A:CURRENT SMOKER ARE YOU INTERESTED IN QUITTING?THINKING ABOUT QUITTING COUNSELED THE PATIENT ON SMOKING CESSATION, EDUCATION [id number]/01/2020 HOW MANY CIGARETTES A DAY DO YOU SMOKE?6-10 HOW SOON AFTER YOU WAKE UP DO YOU SMOKE YOUR FIRST CIGARETTE?6-30 MIN HOW OFTEN DO YOU SMOKE CIGARETTES?EVERY DAY PATIENT COUNSELED ON THE DANGERS OF TOBACCO USE AND URGED TO QUIT:07/06/2020 LATEX QUESTIONNAIRE LATEX ALLERGY : HAVE YOU EVER DEVELOPED ANY TYPE OF REACTION AFTER HANDLING LATEX PRODUCTS SUCH RUBBER GLOVES, CONDOMS, DIAPHRAGMS, BALLOONS, SOCKS, OR UNDERWEAR?NO LATEX ALLERGY : HAVE YOU EVER DEVELOPED ANY TYPE OF REACTION DURING OR AFTER DENTAL APPOINTMENT, VAGINAL/RECTAL EXAMINATION, SURGICAL PROCEDURE, OR ANY OTHER EXPOSURE?NO DATE ASKED : 07/05/2020 LATEX RISK : HAVE YOU EVER HAD ANY DIFFICULTY BREATHING OR HIVES AFTER EATING OR HANDLING ANY FRUITS, OR VEGETABLES; SUCH KIWI, BANANAS, STONE FRUITS, OR CHESTNUTSNO LATEX RISK : DO YOU HAVE A PREVIOUS PERSONAL HISTORY OF MORE THAN NINE SURGERIES, SPINA BIFIDA, OR REPEATED CATHERIZATIONS? NO LATEX RISK : ARE YOU FREQUENTLY EXPOSED TO LATEX PRODUCTS IN YOUR OCCUPATION?NO ALCOHOL SCREENING DID YOU HAVE A DRINK CONTAINING ALCOHOL IN THE PAST YEAR?NO POINTS0 INTERPRETATIONNEGATIVE RECREATIONAL DRUG USE DENIES. CAFFEINE CAFFEINE USE?YES 1 CUP DAILY BUDDHISM [id number] ANABAPTIST LANGUAGE LANGUAGES SPOKEN:TANZANIAN EDUCATION LEVEL OF EDUCATION:COLLEGE LEARNING BARRIERS / SPECIAL NEEDS CHANGE FROM LAST VISIT?NO BARRIERS TO LEARNING?NO HEARING IMPAIRED?NO VISION IMPAIRED?YES :CORRECTIVE LENSES COGNITIVELY IMPAIRED?NO READINESS TO LEARN?YES LEARNING PREFERENCES?YES :DEMONSTRATION/VERBAL INSTRUCTION LEARNING CAPABILITIES PRESENT?YES EMOTIONAL BARRIERS?NO SPECIAL DEVICES?NO DUTY MANAGER NEEDED?NO DOMESTIC VIOLENCE DO YOU FEEL SAFE IN YOUR ENVIRONMENT?YES OCCUPATION: RETIRED. DIET: REGULAR. EXERCISE: NO REGULAR EXERCISE. MARITAL STATUS: SINGLE. OTHERS AT HOME: FOSTER CHILD. PAIN CLINIC PFS, CLERGY, PUBLIC HEALTH REFERRALS PFS REFERRAL NEEDED?NO CLERGY REFERRAL NEEDED?NO PUBLIC HEALTH REFERRAL NEEDED?NO WAS THE PROVIDER NOTIFIED OF ANY PERTINENT INFO?YES HAS THE PATIENT BEEN EDUCATED REGARDING HIS/HER PLAN OF CARE?YES HAS THE PATIENT BEEN EDUCATED REGARDING PAIN, THE RISK FOR PAIN, THE IMPORTANCE OF EFFECTIVE PAIN MANAGEMENT, AND THE PAIN ASSESSMENT PROCESS?YES ADVANCE DIRECTIVE ADVANCE DIRECTIVE DISCUSSED WITH PATIENT:YES PT HAS HEALTH CARE PROXY AT HER [facility]. REVIEWED WITH PT 08/31/18 1141 BVRVIEWED WITH PATIENT 09/18/18 1200 LASREVIEWED WITH PATIENT 02/24/19 1337 JSREVIEWED WITH PT 04/02/19 0851 BVREVIEWED WITH PATIENT 06/10/19 1338 NLJREVIEWED WITH PATIENT 06/28/19 0915 LASREVIEWED WITH PATIENT 07/10/19 1115 JSREVIEWED WITH PATIENT 07/05/2020 1546 JS. HOSPITALIZATION/MAJOR DIAGNOSTIC PROCEDURE SURGERY 07/16 OR 12 VITAL SIGNS WT 149.0 LBS, HT 66 IN, BMI 24.05 INDEX, BP 119/74 MM HG, HR 66 /MIN, RR 18 /MIN, TEMP 97.2 F, OXYGEN SAT % 90%, SAFE IN ENV? (Y/N) Y, NA INITIALS AW 0815, REVIEWED BY: MT. EXAMINATION GENERAL EXAMINATION: THE PATIENT IS ALERT, ORIENTED TIMES THREE AND COOPERATIVE. HEART SHOWS REGULAR RHYTHM, NO MURMURS AND NO GALLOPS. LUNGS ARE CLEAR TO AUSCULTATION. ASSESSMENTS COCCYDYNIA - M53.3 (PRIMARY) TREATMENT COCCYDYNIA [facility] FLUORO GUIDANCE (PAIN)[id number] PROCEDURES PN WORKMANS' COMP OPINION IN YOUR OPINION, WAS THE INCIDENT THAT THE PATIENT DESCRIBED THE COMPETENT MEDICAL CAUSE OF THIS INJURY/ILLNESS? YES ARE THE PATIENT'S COMPLAINTS CONSISTENT WITH HIS/HER HISTORY OF THE INJURY/ILLNESS? YES IS THE PATIENT'S HISTORY OF THE INJURY/ILLNESS CONSISTENT WITH YOUR OBJECTIVE FINDING? YES WHAT IS THE PERCENTAGE OF TEMPORARY IMPAIRMENT? TOTAL = 100% . IS THE PATIENT WORKING? NO . DOCTOR ON SITE: TREY SIERRA MD PRE PROCEDURE DIAGNOSIS 1. INFLAMMATION OF THE SACROCOCCYGEAL LIGAMENT. 2. COCCYDYNIA POST PROCEDURE DIAGNOSIS 1. INFLAMMATION OF THE SACROCOCCYGEAL LIGAMENT. 2. COCCYDYNIA PROCEDURE INJECTION OF THE RIGHT AND LEFT SACROCOCCYGEAL LIGAMENT SURGEON DR. TREY QUINTANILLA FILM DRYING MACHINE OPERATOR NONE ANESTHESIA LOCAL PRE PROCEDURE NOTE THE PATIENT HAS HISTORY OF LOW BACK PAIN. I EVALUATED THE PATIENT AND REVIEWED THE CHART. THE PATIENT IS AWARE OF THE POTENTIAL COMPLICATIONS INLCUDING BUT NOT LIMITED TO, INCLUDE INFECTIONS, VISCERAL PUNCTURE, INCLUDING RECTAL PUNCTURE. I DISCUSSED ALTERNATIVES AND THE PATIENT EXPRESSED WILLIINGNESS TO PROCEED. I DISCUSSED THAT THE USE OF STEROIDS MAY CONTRIBUTE TO IMMUNOSUPPRESSION OF THE PATIENT'S BODY AGAINST INFECTIONS SUCH COVID-19. THE PATIENT IS AWARE OF THE POTENTIAL COMPLICATIONS ASSOCIATED WITH THIS VIRUS, INCLUDING, BUT NOT LIMITED TO, . THE PATIENT WOULD LIKE TO MOVE FORWARD WITH IV SEDATION DUE TO ANXIETY AND DISCOMFORT ASSOCIATED WITH THE PROCEDURE. THE PATIENT DENIES UNEXPLAINABLE, WEIGHT LOSS, FEVER, CHILLS, OR CHANGES IN URINARY OR BOWEL CONTROL. THE PATIENT IS COVID-19 NEGATIVE DESCRIPTION OF PROCEDURE AFTER CONSENT WAS TAKEN, THE PATIENT WAS BROUGHT TO THE PROCEDURE ROOM AND PLACED IN THE PRONE POSITION. THE LUMBOSACRAL AREA WAS CLEANED WITH CHLORAPREP SOLUTION AND DRAPED ASEPTICALLY. THE PROCEDURE WAS DONE UNDER STERILE CONDITIONS. UNDER FLUOROSCOPIC GUIDANCE, THE TARGET WAS SELECTED AT THE RIGHT AND LEFT SACROCOCCYGEAL LIGAMENT. I CONFIRMED AGAIN WITH EVERYONE IN THE ROOM THE LATERALITY OF THE TARGET. LIDOCAINE WAS USED TO NUMB THE SKIN AND THE SUBCUTANEOUS TISSUE BELOW IT. A 25 GAUGE NEEDLE WAS ADVANCED UNTIL WE REACHED THE RIGHT AND LEFT SACROCOCCYGEAL LIGAMENT. I DID AP AND LATERAL VIEWS. ISOVUE-M DYE 30%, 0.25 ML, WAS INJECTED SHOWING ADEQUATE SPREAD OF THE DYE. THEN A SOLUTION OF 30 ML OF BUPIVACAINE 0.125% WITH KENALOG 40 MG WAS INJECTED OVER THE AFFECTED STRUCTURE. THE MEDICATION WAS VERIFIED WITH THE NURSE. THERE WAS NO EVIDENCE OF BLOOD, PARESTHESIA OR CEREBROSPINAL FLUID. NO EVIDENCE OF VACUUM PHENOMENON OR VISCERAL PUNCTURE. THE PATIENT WAS SENT TO THE RECOVERY ROOM WHERE SHE WAS MOVING HER EXTREMITIES AND DOING WELL. THERE WERE NO COMPLICATIONS DURING THE PROCEDURE. EBL LESS THAN 5 ML. FLUOROSCOPY TIME WAS 20 SECONDS. THE PATIENT RECEIVED VERSED 3 MG AND FENTANYL 200 MCG IV IN DIVIDED DOSES. FACE TO FACE START TIME: 0938 FACE TO FACE END TIME: 1007 TOTAL FACE TO FACE TIME: 29 MINUTES POST PROCEDURE NOTE DEPENDING ON THE RESULTS OF THIS INJECTION, CONSIDER A LEFT PIRIFORMIS BLOCK. I AM LOOKING FOR LONG LASTING PAIN RELIEF WITH THIS INTERVENTION. INSTRUCTIONS WERE GIVEN. QUESTIONS WERE ANSWERED. THE PATIENT REPORTS UNDERSTANDING AND AGREES WITH THE PLAN. THERE WERE NO COMPLICATIONS DURING THE PROCEDURE. I, LARY SALINAS, DOCUMENTED THE ABOVE INFORMATION ACTING A SCRIBE FOR DR. QUINTANILLA. I HAVE REVIEWED THE ABOVE DOCUMENT, WRITTEN BY LARY SALINAS, ALLIEIBE, AND I VERIFY THAT IT IS ACCURATE PROCEDURE CODES 47776 INJ TENDON SHEATH/LIGAMENT, MODIFIERS: 50 [id number] NEEDLE LOCALIZATION BY XRAY, MODIFIERS: 26 [id number] MOD SED SAME PHYS/QHP 5/>YRS 63185 MOD SED SAME PHYS/QHP EA DISPOSITION & COMMUNICATION FOLLOW UP FOLLOW UP WITH RADIO PERSONALITY (REASON: W/C POST SACROCOCCYGEAL LIGAMENT BLOCK WITH IV SEDATION) ELECTRONICALLY SIGNED BY TREY QUINTANILLA MD, MD ON 07/06/2020 AT 04:41 PM EDT DISCLAIMER : THIS IS A VISIT SUMMARY EXTRACTED FROM THE [employer] CHART. IT IS NOT A COPY OF THE [employer] PROGRESS NOTE. DEBORAHD
--- NOTE | 2020-07-12 09:47 | REP ---
PARTIAL SACROCOCCYGEAL VIEWS: 12-VIEWS HISTORY: Sacrococcygeal block for pain. 20 seconds of fluoroscopy time is reported. FINDINGS: A sequence of 12 last-image hold fluoroscopically obtained spot radiographs of the pelvis document needle position and contrast injection associated with injection procedure. MTDD
== END ==
LOC: M PAIN 08:00
PROVIDERS: ATTEND Anesthesiology
DX: M53.3 Sacrococcygeal disorders, not elsewhere classified (principal); G47.00 Insomnia, unspecified; F17.210 Nicotine dependence, cigarettes, uncomplicated; Z86.59 Personal history of other mental and behavioral disorders; Z88.6 Allergy status to analgesic agent; Z79.899 Other long term (current) drug therapy
CPT/HCPCS: 20550; 77002; 99152; 99153; J2250; J3010; J3301; Q9967

== ENCOUNTER → 2020-07-25 | Outpatient (CLI) | payer MEDICARE, MEDICAID ==
[~2020-07-25] MED LIST changes: -BUPIVACAINE HCL 0.25% 30ML VIAL As Ordered ONE; -ISOVUE-M 300 61% 15ML VIAL As Ordered ONE; -LIDOCAINE 1% SDV 30ML VIAL As Ordered ONE; -MIDAZOLAM INJ 2MG/2ML VIAL (J2250 PER 1MG) As Ordered ONE; -TRIAMCINOLONE ACETONIDE SUSP 40 MG/ML VIAL (J3301) As Ordered ONE; -fentaNYL 100 MCG/2 ML INJECTION (J3010) As Ordered ONE
--- NOTE | 2020-07-26 15:38 | ECWPNPC ---
PATIENT NAME: MARIMAR JARVIS : 1955 GENDER: FEMALE VISIT DATE: 07/25/2020 DISCHARGE DATE: 07/25/20 0000 VISIT LOCKED DATE TIME: PHYSICIAN: STACI MOREJON RESOURCE: STACI MOREJON REASON FOR APPOINTMENT 1. POST SACROCOCCYGEAL LIGAMENT BLOCK WITH IV SEDATION HISTORY OF PRESENT ILLNESS GENERAL: - PATIENT IN FOR POST SACROCOCCYGEAL LIGAMENT BLOCK INJECTION. SHE FEELS THE PROCEDURE WAS UNSUCCESSFUL FURTHER STATING THAT SHE HAD INCREASED PAIN STATUS POST PROCEDURE. STATUS POST PROCEDURE PATIENT CALLED THE CLINIC TWICE REQUESTING MEDICATION RELATED TO INCREASED PAIN AND SHE WAS GIVEN SOMA AT THOSE TIMES. SHE DOES ADMITS TODAY THAT SHE FOUND THE SOMA TO BE HELPFUL. SHE RATES HER PAIN CURRENTLY AT A 5 OUT OF 10. FALL RISK SCREENING: SCREENING :ONE FALL WITH INJURY IN THE PAST YEAR PATIENT FELL ON AND DID NOT SEEK MEDICAL TREATMET. PAIN SCREENING: PATIENT HAS A COMPLAINT OF ACUTE OR CHRONIC PAIN :YES LOCATION OF PAIN:LOW BACK, OTHER: BUTTOCKS AREA INTENSITY OF PAIN (SCALE OF 1 TO 10):5 WHAT DOES YOUR PAIN FEEL LIKE:BURNING BURNING SENSATION MORE WHEN PATIENT IS SITTING. DURATION:INTERMITTENT PAIN IS INCREASED BY:OTHERS SITTING PAIN IS DECREASED BY:USE OF PAIN MEDICATIONS, OTHERS HEATING AND LAYING DOWN RESTING HELPS TO REDUCE PAIN. NURSING NOTE: -. PAIN CENTER INTAKE QUESTIONS: DO YOU HAVE A HISTORY OF MRSA? :NO DO YOU TAKE A BLOOD THINNERS? :NO DO YOU HAVE ANY BLEEDING DISORDERS? :NO ANY NEW NUMBNESS OR WEAKNESS IN YOUR LEGS OR ARMS? :NO ANY PACEMAKER,DEFIBRILLATOR, OR DORSAL COLUMN STIMULATOR? :NO DO YOU HAVE ANY RASHES OR OPEN SORES? :NO ARE YOU ALLERGIC TO IV DYE? :NO ARE YOU DIABETIC? :NO ANY NEW PROBLEMS WITH YOUR MEDICATIONS? :NO HAVE YOU RECEIVED A VACCINE IN THE PAST 30 DAYS? :NO DO YOU PLAN TO RECEIVE A VACCINE IN THE NEXT 21 DAYS? :NO DO YOU NEED ANY PRESCRIPTION? :NO DO YOU TAKE ANY IMMUNOSUPPRESSIVE MEDICATIONS? :NO IS THERE A CHANCE YOU COULD BE ? :NO ARE YOU BREAST FEEDING? :NO CURRENT MEDICATIONS TAKING CELEXA 40 MG TABLET 1 TABLET ORALLY TWICE DAILY, NOTES: 07/05/20 1930 TAKING ACETAMINOPHEN 325 MG TABLET 1 TABLET NEEDED ORALLY EVERY 4 HRS, NOTES: NOT RECENTLY NOT-TAKING TRAZODONE HCL 50 MG TABLET 1 TABLET AT BEDTIME NEEDED ORALLY ONCE A DAY, NOTES: 07/05/20 1930 NOT-TAKING SOMA 350 MG TABLET 1 TABLET NEEDED ORALLY BID, NOTES: NOT RECENTLY NOT-TAKING IBUPROFEN 800 MG TABLET 1 TABLET WITH FOOD OR MILK ORALLY EVERY 6 HOURS NEEDED FOR PAIN MDD3, NOTES: NONE RECENT NOT-TAKING GABAPENTIN 100 MG CAPSULE 1 CAPSULE IN AM AND AFTERNOON THEN 2 AT BEDTIME ORALLY THREE TIMES DAILY NOT-TAKING FLONASE 50 MCG/ACT SUSPENSION 1 SPRAY IN EACH NOSTRIL NASALLY ONCE A DAY NOT-TAKING DICLOFENAC SODIUM 50 MG TABLET DELAYED RELEASE 1 TABLET WITH FOOD OR MILK ORALLY THREE TIMES A DAY NOT-TAKING TRAMADOL HCL 50 MG TABLET 1 TABLET NEEDED ORALLY DAILY FOR PAIN MDD1 NOT-TAKING AZELASTINE HCL 0.1 % SOLUTION 1 PUFF IN EACH NOSTRIL NASALLY TWICE A DAY, NOTES: 0700 NOT-TAKING SOMA 350 MG TABLET 1 TABLET NEEDED ORALLY FOR SPASMS AND PAIN BEFORE BEDTIME NOT-TAKING XANAX 1 MG TABLET 1 TABLET ORALLY TWICE A DAY NEEDED MEDICATION LIST REVIEWED AND RECONCILED WITH THE PATIENT PAST MEDICAL HISTORY INSOMNIA BILATERAL FOOT PAIN ANXIETY DEPRESSION POST LAMINECTOMY PAIN BACK & LEG PAIN PTSD FROM PREVIOUS PAIN PROCEDURES ALLERGIES NAPROXEN: ORBITAL PRESSURE - ALLERGY SURGICAL HISTORY LAMINECTOMY 07/16 OR C SECTION C SECTION CATARACTS SURGERY JUN 2018 FAMILY HISTORY FATHER: MOTHER: PARENTS DUE TO MVA. SOCIAL HISTORY GENERAL: TOBACCO USE ARE YOU A:CURRENT SMOKER ARE YOU INTERESTED IN QUITTING?THINKING ABOUT QUITTING COUNSELED THE PATIENT ON SMOKING CESSATION, EDUCATION [id number]/20/2020 HOW MANY CIGARETTES A DAY DO YOU SMOKE?6-10 HOW SOON AFTER YOU WAKE UP DO YOU SMOKE YOUR FIRST CIGARETTE?6-30 MIN HOW OFTEN DO YOU SMOKE CIGARETTES?EVERY DAY PATIENT COUNSELED ON THE DANGERS OF TOBACCO USE AND URGED TO QUIT:07/25/2020 LATEX QUESTIONNAIRE LATEX ALLERGY : HAVE YOU EVER DEVELOPED ANY TYPE OF REACTION AFTER HANDLING LATEX PRODUCTS SUCH RUBBER GLOVES, CONDOMS, DIAPHRAGMS, BALLOONS, SOCKS, OR UNDERWEAR?NO LATEX ALLERGY : HAVE YOU EVER DEVELOPED ANY TYPE OF REACTION DURING OR AFTER DENTAL APPOINTMENT, VAGINAL/RECTAL EXAMINATION, SURGICAL PROCEDURE, OR ANY OTHER EXPOSURE?NO DATE ASKED : 07/05/2020 LATEX RISK : HAVE YOU EVER HAD ANY DIFFICULTY BREATHING OR HIVES AFTER EATING OR HANDLING ANY FRUITS, OR VEGETABLES; SUCH KIWI, BANANAS, STONE FRUITS, OR CHESTNUTSNO LATEX RISK : DO YOU HAVE A PREVIOUS PERSONAL HISTORY OF MORE THAN NINE SURGERIES, SPINA BIFIDA, OR REPEATED CATHERIZATIONS? NO LATEX RISK : ARE YOU FREQUENTLY EXPOSED TO LATEX PRODUCTS IN YOUR OCCUPATION?NO ALCOHOL SCREENING DID YOU HAVE A DRINK CONTAINING ALCOHOL IN THE PAST YEAR?NO POINTS0 INTERPRETATIONNEGATIVE RECREATIONAL DRUG USE DENIES. CAFFEINE CAFFEINE USE?YES 1 CUP DAILY MORMONISM [id number] EPISCOPALIAN LANGUAGE LANGUAGES SPOKEN:SYRIAC EDUCATION LEVEL OF EDUCATION:COLLEGE LEARNING BARRIERS / SPECIAL NEEDS CHANGE FROM LAST VISIT?NO BARRIERS TO LEARNING?NO HEARING IMPAIRED?NO VISION IMPAIRED?YES COGNITIVELY IMPAIRED?NO :CORRECTIVE LENSES READINESS TO LEARN?YES LEARNING PREFERENCES?YES :DEMONSTRATION/VERBAL INSTRUCTION LEARNING CAPABILITIES PRESENT?YES EMOTIONAL BARRIERS?NO SPECIAL DEVICES?NO ELECTRONIC PUBLISHER NEEDED?NO DOMESTIC VIOLENCE DO YOU FEEL SAFE IN YOUR ENVIRONMENT?YES OCCUPATION: RETIRED. DIET: REGULAR. EXERCISE: NO REGULAR EXERCISE. MARITAL STATUS: SINGLE. OTHERS AT HOME: FOSTER CHILD. PAIN CLINIC PFS, CLERGY, PUBLIC HEALTH REFERRALS PFS REFERRAL NEEDED?NO CLERGY REFERRAL NEEDED?NO PUBLIC HEALTH REFERRAL NEEDED?NO WAS THE PROVIDER NOTIFIED OF ANY PERTINENT INFO?YES HAS THE PATIENT BEEN EDUCATED REGARDING HIS/HER PLAN OF CARE?YES HAS THE PATIENT BEEN EDUCATED REGARDING PAIN, THE RISK FOR PAIN, THE IMPORTANCE OF EFFECTIVE PAIN MANAGEMENT, AND THE PAIN ASSESSMENT PROCESS?YES ADVANCE DIRECTIVE ADVANCE DIRECTIVE DISCUSSED WITH PATIENT:YES PT HAS HEALTH CARE PROXY AT HER [employer]. REVIEWED WITH PT 08/31/18 1141 BVRVIEWED WITH PATIENT 09/18/18 1200 LASREVIEWED WITH PATIENT 02/24/19 1337 JSREVIEWED WITH PT 04/02/19 0851 BVREVIEWED WITH PATIENT 06/10/19 1338 NLJREVIEWED WITH PATIENT 06/28/19 0915 LASREVIEWED WITH PATIENT 07/10/19 1115 JSREVIEWED WITH PATIENT 07/05/2020 1546 JS. HOSPITALIZATION/MAJOR DIAGNOSTIC PROCEDURE SURGERY 07/16 OR REVIEW OF SYSTEMS CONSTITUTIONAL: ANY RECENT FEVER NO . CHILLS NO . WEIGHT CHANGE OF UNKNOWN REASONS NO . GASTROENTEROLOGY: NEW UNEXPLAINABLE CHANGES IN BOWEL CONTROL NO . CONSTIPATION NO . GENITOURINARY: ANY NEW CHANGE IN BLADDER CONTROL? NO . NEUROLOGY: NEW ONSET DIZZINESS OR NEUROLOGICAL CHANGES NOT MENTIONED NO . NEW NUMBNESS OR PAIN PATTERNS NOT MENTIONED AND PERTINENT TO TODAY'S VISIT NO . CARDIOLOGY: NEW CHEST PRESSURE NO . NEW CHEST PAIN NO . RESPIRATORY: UNEXPLAINABLE COUGH NO . NEW SHORTNESS OF BREATH NO . VITAL SIGNS WT 146.0 LBS, HT 66 IN, BMI 23.56 INDEX, BP 101/59 MM HG, HR 56 /MIN, RR 18 /MIN, OXYGEN SAT % 100%, SAFE IN ENV? (Y/N) YES, REVIEWED BY: JUDIT. EXAMINATION GENERAL EXAMINATION: GENERALNO ACUTE DISTRESS, WELL NOURISHED AND HYDRATED. PSYCHAPPROPRIATE MOOD AND AFFECT . LUNGS:CLEAR TO AUSCULTATION BILATERALLY, NO WHEEZES, RHONCHI, RALES. HEART:NO MURMURS, REGULAR RATE AND RHYTHM. ASSESSMENTS OTHER CHRONIC PAIN - G89.29 (PRIMARY) COCCYDYNIA - M53.3 TREATMENT OTHER CHRONIC PAIN PAIN PROCEDURE LOGDATE OF [id number]/1/2020PROCEDURE:BILATERAL SACROCOCCYGEAL LIGAMENT INJECTIONAMOUNT OF PRE SEDATEFENTANYL 200 MCG & VERSED 3 MG CLINICAL NOTES: 65 OLD FEMALE IN FOR SACROCOCCYGEAL LIGAMENT INJECTION FOLLOW-UP. PATIENT STATED TO THIS MOLDER MEAT THAT SHE WAS DISPLEASED SHE DID NOT RECEIVE FURTHER MEDICATION FOR HER INCREASED PAIN STATUS POST PROCEDURE. THIS MOLDER MEAT ASKED PATIENT HAD SHE GONE TO URGENT CARE WAS RECOMMENDED BY THIS MOLDER MEAT PATIENT STATES SHE DID NOT. PATIENT WAS INFORMED THAT THIS MOLDER MEAT WAS CONCERNED THERE COULD BE SOMETHING WRONG AND THAT IS WHY SHE WAS ENCOURAGED TO GO TO URGENT CARE FOR FURTHER EVALUATION. THIS MOLDER MEAT FURTHER STATED HE WOULD NOT PRESCRIBE MEDICATIONS OVER THE PHONE SHE HAD BEEN TREATED X 2 AND HER PAIN CONTINUED SO SHE SHOULD HAVE BEEN EVALUATED. PATIENT BECAME ANGRY WITH THIS MOLDER MEAT AND STATED SHE WOULD NEVER CALL REGARDING HER PAIN AGAIN AND SHE FELT THIS MOLDER MEAT WAS JUDGING HER BASED ON THE NEEDS FOR MEDICATIONS. PROCEDURE CODES FA211 ESTABILISHED PATIENT [facility]LY [facility] CHARGE DISPOSITION & COMMUNICATION FOLLOW UP 3 MONTHS (REASON: W/C FOLLOW UP ) ELECTRONICALLY SIGNED BY RAMONA FRANK ON 07/26/2020 AT 02:58 PM EDT DISCLAIMER : THIS IS A VISIT SUMMARY EXTRACTED FROM THE [facility] CHART. IT IS NOT A COPY OF THE [facility] PROGRESS NOTE. MIKE
== END ==
LOC: M PAIN 09:45
PROVIDERS: ATTEND Family Medicine
DX: M53.3 Sacrococcygeal disorders, not elsewhere classified (principal); G89.29 Other chronic pain; G47.00 Insomnia, unspecified; F17.210 Nicotine dependence, cigarettes, uncomplicated; Z86.59 Personal history of other mental and behavioral disorders; Z88.6 Allergy status to analgesic agent; Z79.899 Other long term (current) drug therapy

== ENCOUNTER 2020-10-11 10:44 | Emergency (ER) | payer MEDICARE, MEDICAID ==
[2020-10-11] MEDS ORDERED: ONDANSETRON 4MG/2ML VIAL IV ONE (11:00)
--- NOTE | 2020-10-11 11:26 | REP ---
INDICATION: fever, cough COMPARISON: 03/08/2018 TECHNIQUE: Portable AP view of the chest FINDINGS: The mediastinum and cardiac silhouette are stable and within normal limits for portable technique. The lung matthews are clear without acute consolidation, effusion, or pneumothorax. Skeletal structures are intact. IMPRESSION: No acute cardiopulmonary process appreciated. <Electronically signed by Amandeep Ybarra > 10/11/20 1123
[2020-10-11] MEDS ORDERED: NS 1,000 ML IV ONE (11:45)
[2020-10-11 11:56] LABS: BASO # 0.1 10^3/uL (0.0-0.2); BASO % 0.5 % (0.0-1.0); EOS # 0.1 10^3/uL (0.0-0.5); EOS % 0.5 % (0.0-3.0); HEMATOCRIT 46.5 % (36.0-47.0); HEMOGLOBIN 15.2 g/dl (12.0-15.5); LYMPH # 2.1 10^3/uL (1.5-5.0); LYMPH % 19.8 % (24.0-44.0); MEAN CORPUSCULAR HEMOGLOBIN 28.7 pg (27.0-33.0); MEAN CORPUSCULAR HGB CONC 32.7 g/dl (32.0-36.5); MEAN CORPUSCULAR VOLUME 87.9 fl (80.0-96.0); MONO # 1.1 10^3/uL (0.0-0.8); MONO % 9.8 % (0.0-5.0); NEUTROPHILS # 7.4 10^3/uL (1.5-8.5); NEUTROPHILS % 68.8 % (36.0-66.0); PLATELET COUNT, AUTOMATED 229 10^3/uL (150-450); RED BLOOD COUNT 5.29 10^6/uL (4.00-5.40); WHITE BLOOD COUNT 10.7 10^3/uL (4.0-10.0)
[2020-10-11 12:29] LABS: CALCIUM LEVEL 9.5 MG/DL (8.8-10.2); GLOMERULAR FILTRATION RATE 59.4 (>45)
[2020-10-11 13:25] LABS: RSV AMPLIFICATION NEGATIVE (NEGATIVE)
[2020-10-11] MEDS ORDERED: ONDA4TAB6 PO (14:41)
[2020-10-11 14:45] VITALS: BP 100/53
--- NOTE | 2020-10-13 21:20 | ECGEPIP ---
[facility] - ED Test Date: 2020-10-11 Pat Name: MARIMAR JARVIS Department: Room: - Gender: Female [employer] Project Manager: KANU : 1955 Requested By: Bola Spring Order Number: [id number] Reading MD: Bola Loving Measurements Intervals [facility] Rate: 61 P: 42 RI: 154 QRS: 6 QRSD: 113 T: 17 QT: 416 QTc: 420 Interpretive Statements SINUS RHYTHM INCOMPLETE RIGHT BUNDLE BRANCH BLOCK SIMILAR TO 03/08/18 Electronically Signed on 10-13-2020 21:19:18 EST by Bola Loving
== END 2020-10-11 15:00 | disposition home or self-care (01) ==
LOC: EDBD 10:44 → M ED 10:44
DX: K52.9 Noninfective gastroenteritis and colitis, unspecified (principal); I10 Essential (primary) hypertension; F41.9 Anxiety disorder, unspecified; G89.29 Other chronic pain; M54.5 Low back pain; Z79.899 Other long term (current) drug therapy; Z88.8 Allergy status to other drugs, medicaments and biological substances; F17.210 Nicotine dependence, cigarettes, uncomplicated
CPT/HCPCS: 36415; 71045; 80048; 85025; 87631; 93005; 96361; 96374; 99285; J2405

== ENCOUNTER → 2021-05-21 | Outpatient (CLI) | payer MEDICARE, MEDICAID ==
[~2021-05-21] MED LIST changes: +ONDA4TAB6 PO
[2021-05-21 14:30] LABS: BLOOD UREA NITROGEN 11 MG/DL (7-18); CREATININE FOR GFR 0.85 MG/DL (0.55-1.30); GLOMERULAR FILTRATION RATE > 60.0 (>45)
== END ==
LOC: M LAB 13:27
PROVIDERS: ATTEND Otolaryngology
DX: Z01.812 Encounter for preprocedural laboratory examination (principal); Z79.899 Other long term (current) drug therapy

== ENCOUNTER → 2021-05-25 | Outpatient (CLI) | payer MEDICARE, MEDICAID ==
--- NOTE | 2021-05-27 17:21 | REPVR ---
PROCEDURE INFORMATION: Exam: MR Head Without Contrast; Internal Auditory Canals Exam date and time: 05/25/2021 11:21 AM Age: 66 years old Clinical indication: Other: Hearing loss TECHNIQUE: Imaging protocol: MR of the head without contrast. Exam focused on the internal auditory canals. COMPARISON: CT Head without contrast 03/08/2018 5:59 PM FINDINGS: Brain: There are few scattered foci of increased T2/FLAIR signal in the subcortical white matter related to the sequela of prior small vessel ischemia. The diffusion sequence demonstrates no acute change. High-resolution imaging of the 7th and 8th nerve complexes demonstrates no mass. Ventricles: No ventriculomegaly. Mastoid air cells: There is some trace fluid in the inferior left mastoid air cells. Internal auditory canals: 7th and 8th cranial nerves are unremarkable. No abnormal masses. Bones/joints: Unremarkable. IMPRESSION: There is no evidence of an acoustic neuroma. Electronically signed by: Sumit Forrest On 05/27/2021 17:20:49 PM
== END ==
LOC: M PLARAD 08:42
PROVIDERS: ATTEND Otolaryngology
DX: H91.91 Unspecified hearing loss, right ear (principal)

== ENCOUNTER 2021-09-01 18:42 | Emergency (ER) | payer MEDICARE, MEDICAID ==
[~2021-09-01] VITALS: Ht 167.6 cm; Wt 59.1 kg
[2021-09-01] MEDS ORDERED: KETOROLAC 30 MG/ML 1ML VIAL IV ONE (19:35)
[2021-09-01] MEDS ORDERED: SIMETHICONE 80MG CHEW TAB PO ONE (19:45)
[2021-09-01 20:23] LABS: BASO # 0.1 10^3/uL (0.0-0.2); BASO % 0.6 % (0.0-1.0); EOS # 0.3 10^3/uL (0.0-0.5); EOS % 3.2 % (0.0-3.0); HEMOGLOBIN 14.2 g/dl (12.0-15.5); LYMPH # 3.2 10^3/uL (1.5-5.0); LYMPH % 31.8 % (24.0-44.0); MEAN CORPUSCULAR HEMOGLOBIN 29.7 pg (27.0-33.0); MONO # 0.7 10^3/uL (0.0-0.8); MONO % 6.7 % (2.0-8.0); NEUTROPHILS # 5.7 10^3/uL (1.5-8.5); NEUTROPHILS % 57.4 % (36.0-66.0); PLATELET COUNT, AUTOMATED 228 10^3/uL (150-450); RED BLOOD COUNT 4.78 10^6/uL (4.00-5.40)
[2021-09-01 20:52] LABS: CK-MB VALUE MASS < 1.0 NG/ML (<3.6); CPK CREATINE PHOSPHOKINASE 36 U/L (26-192); MB/CK RELATIVE INDEX 2.78 (< OR =4)
[2021-09-01] MEDS ORDERED: GI COCKTAIL 50ML BTL(HYOSCYAMINE/MAALOX/LIDOCAINE VISCOUS)(1:3:1) PO ONE (21:15)
[2021-09-01 21:17] LABS: RSV AMPLIFICATION NEGATIVE (NEGATIVE)
[2021-09-01 21:25] LABS: BLOOD UREA NITROGEN 18 MG/DL (7-18); CALCIUM LEVEL 9.4 MG/DL (8.8-10.2); CARBON DIOXIDE LEVEL 27 MEQ/L (21-32); CHLORIDE LEVEL 109 MEQ/L (98-107); CREATININE FOR GFR 0.77 MG/DL (0.55-1.30); GLOMERULAR FILTRATION RATE > 60.0 (>45); GLUCOSE, FASTING 89 MG/DL (70-100); POTASSIUM SERUM 4.2 MEQ/L (3.5-5.1); SODIUM LEVEL 142 MEQ/L (136-145)
[2021-09-01 21:26] LABS: ALBUMIN 3.4 GM/DL (3.2-5.2); ALT/SGPT 14 U/L (12-78); BILIRUBIN,DIRECT < 0.1 MG/DL (0.0-0.2); BILIRUBIN,TOTAL 0.3 MG/DL (0.2-1.0); LIPASE 119 U/L (73-393); NT-PRO BNP 115 PG/ML (<125); TOTAL PROTEIN 6.7 GM/DL (6.4-8.2)
[2021-09-01 22:10] LABS: CK-MB VALUE MASS < 1.0 NG/ML (<3.6); CPK CREATINE PHOSPHOKINASE 35 U/L (26-192); MB/CK RELATIVE INDEX 2.86 (< OR =4)
[2021-09-01] MEDS ORDERED: ISOVUE-370 76% 100ML VIAL As Ordered ONE (22:47)
[2021-09-02] LABS: CK-MB VALUE MASS < 1.0 NG/ML (<3.6); CPK CREATINE PHOSPHOKINASE 29 U/L (26-192); MB/CK RELATIVE INDEX 3.45 (< OR =4)
[2021-09-02] MEDS ORDERED: oxyCODONE 5MG TAB PO ONE (01:05)
[2021-09-02] MEDS ORDERED: ACETAMINOPHEN TAB 650MG DOSE (2X325MG) PO ONE (01:05)
[2021-09-02] MEDS ORDERED: NORCO 5/325MG TABLET (BULK FOR ED) PO ONE (01:05)
[2021-09-02 01:15] VITALS: BP 115/57
== END 2021-09-02 03:17 | disposition home or self-care (01) ==
LOC: M ED 18:42
DX: R07.89 Other chest pain (principal); R06.02 Shortness of breath; I45.19 Other right bundle-branch block; K04.7 Periapical abscess without sinus; F33.9 Major depressive disorder, recurrent, unspecified; Z88.8 Allergy status to other drugs, medicaments and biological substances
CPT/HCPCS: 70491; 71045; 71275; 80048; 80076; 82550; 82553; 83690; 83880; 84484; 85025; 87040; 87631; 93005; 96374; 99285; J1885; Q9967

== ENCOUNTER → 2021-11-16 | Outpatient (CLI) | payer MEDICARE, MEDICAID | LOC: M RAD 14:09 | PROVIDERS: ATTEND Pediatrics | DX: R91.8 Other nonspecific abnormal finding of lung field (principal) ==

== ENCOUNTER 2021-11-26 17:17 | Emergency (ER) | payer MEDICARE, MEDICAID ==
[~2021-11-26] VITALS: Ht 167.6 cm; Wt 61.1 kg
[2021-11-26 17:17] VITALS: BP 135/62
[2021-11-26] MEDS ORDERED: TRAZ-252 (17:49)
[2021-11-26] MEDS ORDERED: CITA40TA6 (17:49)
[2021-11-26] MEDS ORDERED: LAMO100T3 (17:49)
[2021-11-26] MEDS ORDERED: LIDOCAINE 5% (LIDODERM) PATCH TD ONE (20:40)
[2021-11-26] MEDS ORDERED: KETOROLAC 60MG 2ML VIAL IM ONE (20:40)
[2021-11-26] MEDS ORDERED: **NOTE PATIENT COMMENT** MISC XX SCH (21:00)
[2021-11-26] MEDS ORDERED: METH-1165 PO (22:43)
[2021-11-26] MEDS ORDERED: ANEC4CRE3 TOP (22:43)
[2021-11-26] MEDS ORDERED: IBUP-1022 PO (22:43)
[2021-11-26] MEDS ORDERED: methocarbamoL 750 MG TAB PO ONE (22:50)
[2021-11-27] MEDS ORDERED: **NOTE PATIENT COMMENT** MISC XX ONE (09:00)
== END 2021-11-26 23:03 | disposition home or self-care (01) ==
LOC: M ED 17:17
DX: M25.512 Pain in left shoulder (principal); Z88.8 Allergy status to other drugs, medicaments and biological substances; F17.210 Nicotine dependence, cigarettes, uncomplicated
CPT/HCPCS: 70450; 72125; 73000; 73030; 73070; 96372; 99282; J1885

== ENCOUNTER → 2021-12-18 | Outpatient (CLI) | payer MEDICARE, MEDICAID ==
[~2021-12-18] MED LIST changes: +ANEC4CRE3 TOP; +CITA40TA6; +IBUP-1022 PO; +LAMO100T3; +METH-1165 PO; +TRAZ-252
== END ==
LOC: M RAD 12:42
PROVIDERS: ATTEND Pediatrics
DX: E04.1 Nontoxic single thyroid nodule (principal)

== ENCOUNTER → 2022-01-14 | Outpatient (CLI) | payer MEDICARE, MEDICAID ==
[2022-01-14 09:48] LABS: C REACTIVE PROTEIN QUANTITATIV < 0.30 MG/DL (0.00-0.30); CHOLESTEROL LEVEL 161 MG/DL (<200); CHOLESTEROL RISK RATIO 4.025 (<5); HDL CHOLESTEROL 40 MG/DL (>40); LDL CHOLESTEROL 81 MG/DL (<100); NON-HDL-C 121 MG/DL; TRIGLYCERIDES LEVEL 201 MG/DL (<150)
== END ==
LOC: M LAB 08:50
PROVIDERS: ATTEND Internal Medicine Cardiovascular Disease
DX: I25.10 Atherosclerotic heart disease of native coronary artery without angina pectoris (principal); Z79.899 Other long term (current) drug therapy

== ENCOUNTER → 2022-03-11 | Outpatient (CLI) | payer MEDICARE, MEDICAID | LOC: M PLARAD 09:53 | PROVIDERS: ATTEND Internal Medicine Pulmonary Disease | DX: R91.8 Other nonspecific abnormal finding of lung field (principal) | CPT/HCPCS: 78815; A9552 ==

== ENCOUNTER → 2023-02-06 | Outpatient (CLI) | payer MEDICARE, MEDICAID | LOC: M WHC 08:44 | PROVIDERS: ATTEND Otolaryngology | DX: R59.9 Enlarged lymph nodes, unspecified (principal) ==

== ENCOUNTER → 2023-03-21 | Outpatient (CLI) | payer MEDICARE, MEDICAID | LOC: M PLAIMG 10:53 | PROVIDERS: ATTEND Internal Medicine Pulmonary Disease | DX: R91.8 Other nonspecific abnormal finding of lung field (principal) ==

== ENCOUNTER → 2024-04-19 | Outpatient (CLI) | payer MEDICARE, MEDICAID ==
[~2024-04-19] MED LIST changes: -AZEL0.055; +AZEL1SPR4; +ONDA-282 PO; -ONDA4TAB6 PO
== END ==
LOC: M RAD 09:21
PROVIDERS: ATTEND Internal Medicine Pulmonary Disease
DX: R91.8 Other nonspecific abnormal finding of lung field (principal)

== ENCOUNTER 2024-07-01 17:11 | Emergency (ER) | payer MEDICARE, MEDICAID ==
[~2024-07-01] VITALS: Ht 167.6 cm; Wt 59.7 kg
[2024-07-01 17:16] VITALS: TEMP 98.1
[2024-07-01] MEDS ORDERED: CITA40TA7 (17:30)
[2024-07-01 20:30] LABS: BASO # 0.1 10^3/uL (0.0-0.2); BASO % 0.9 % (0.0-1.0); EOS # 0.2 10^3/uL (0.0-0.5); EOS % 1.7 % (0.0-3.0); HEMATOCRIT 48.6 % (36.0-47.0); HEMOGLOBIN 16.2 g/dl (12.0-15.5); LYMPH # 4.9 10^3/uL (1.5-5.0); LYMPH % 38.8 % (24.0-44.0); MEAN CORPUSCULAR HGB CONC 33.3 g/dl (32.0-36.5); MONO % 7.7 % (2.0-8.0); NEUTROPHILS # 6.4 10^3/uL (1.5-8.5); NEUTROPHILS % 50.4 % (36.0-66.0); PLATELET COUNT, AUTOMATED 278 10^3/uL (150-450); WHITE BLOOD COUNT 12.6 10^3/uL (4.0-10.0)
[2024-07-01 20:42] LABS: LIPASE 46 U/L (12-53)
[2024-07-01 20:44] LABS: ALBUMIN 4.1 G/DL (3.2-5.2); ALKALINE PHOSPHATASE 97 U/L (46-116); ALT/SGPT 11 U/L (7.0-40); AST/SGOT 12 U/L (<34); BILIRUBIN,DIRECT 0.2 MG/DL (<0.4); BILIRUBIN,TOTAL 0.6 MG/DL (0.3-1.2); BLOOD UREA NITROGEN 13 MG/DL (9-23); CALCIUM LEVEL 10.9 MG/DL (8.3-10.6); CARBON DIOXIDE LEVEL 27 MMOL/L (20-31); CHLORIDE LEVEL 108 MMOL/L (98-107); CREATININE FOR GFR 0.91 MG/DL (0.55-1.30); GLOMERULAR FILTRATION RATE > 60.0 (>45); GLUCOSE, FASTING 93 MG/DL (74-106); POTASSIUM SERUM 3.9 MMOL/L (3.5-5.1); SODIUM LEVEL 140 MMOL/L (136-145); TOTAL PROTEIN 7.5 G/DL (5.7-8.2)
[2024-07-02] MEDS: NS 1,000 ML IV ONE (00:20)
[2024-07-02] MEDS: PANTOPRAZOLE 40MG VIAL IV ONE (00:20)
[2024-07-02 00:24] LABS: CK-MB VALUE MASS < 1.0 NG/ML (<3.6)
[2024-07-02] MEDS ORDERED: ISOVUE-370 76% 100ML VIAL As Ordered ONE (00:27)
[2024-07-02 00:28] LABS: CPK CREATINE PHOSPHOKINASE 55 U/L (34-145); MB/CK RELATIVE INDEX 1.81 (< OR =4)
[2024-07-02 01:30] VITALS: BP 132/77; O2SAT 98
[2024-07-02] MEDS ORDERED: PROT1TAB2 PO (02:36)
== END 2024-07-02 02:53 | disposition home or self-care (01) ==
LOC: M ED 17:11
DX: K21.9 Gastro-esophageal reflux disease without esophagitis (principal); R11.2 Nausea with vomiting, unspecified; F41.9 Anxiety disorder, unspecified; F17.210 Nicotine dependence, cigarettes, uncomplicated; Z88.8 Allergy status to other drugs, medicaments and biological substances; Z79.899 Other long term (current) drug therapy
CPT/HCPCS: 36415; 71260; 74177; 80048; 80076; 82550; 82553; 83690; 84484; 85025; 93005; 96361; 96374; 99284; J2470; Q9967

== ENCOUNTER → 2024-07-21 | Outpatient (REF) | payer MEDICARE, MEDICAID ==
[~2024-07-21] MED LIST changes: +CITA40TA7; +PROT1TAB2 PO
[2024-07-21 18:20] LABS: CHOLESTEROL RISK RATIO 4.65 (<5); HDL CHOLESTEROL 41.7 MG/DL (>40); LDL CHOLESTEROL 116.5 MG/DL (<100); NON-HDL-C 152.3 MG/DL
[2024-07-21 18:22] LABS: THYROID STIMULATING HORMONE 2.373 uIU/ML (0.55-4.78)
== END ==
LOC: M LAB REF 16:30
PROVIDERS: ATTEND Pediatrics
DX: I77.1 Stricture of artery (principal); F41.9 Anxiety disorder, unspecified; Z79.899 Other long term (current) drug therapy

== ENCOUNTER → 2024-12-27 | Outpatient (CLI) | payer MEDICARE, MEDICAID | LOC: M PLAIMG 13:35 | PROVIDERS: ATTEND Internal Medicine Pulmonary Disease | DX: R91.1 Solitary pulmonary nodule (principal); R91.8 Other nonspecific abnormal finding of lung field ==

== ENCOUNTER 2025-05-06 14:53 | Emergency (ER) | payer MEDICARE, MEDICAID ==
[~2025-05-06] VITALS: Ht 167.6 cm; Wt 61.9 kg
[~2025-05-06 14:53] MED LIST changes: +ALPR0.5T3; +CELE40TA PO; +LAMO100T80 PO; +TRAZ-186 PO; +XANA0.5T PO
[2025-05-06] MEDS ORDERED: VARE1TAB2 (15:11)
[2025-05-06 16:06] LABS: PLATELET COUNT, AUTOMATED 252 10^3/uL (150-450)
[2025-05-06 16:24] LABS: ETHYL ALCOHOL (ETHANOL) < 0.003 % (0.000-0.010)
[2025-05-06 16:25] LABS: SALICYLATE LEVEL < 3.0 MG/DL (<30)
[2025-05-06 16:26] LABS: ALT/SGPT 17 U/L (7.0-40); AST/SGOT 25 U/L (<34); CALCIUM LEVEL 10.7 MG/DL (8.3-10.6); CARBON DIOXIDE LEVEL 23 MMOL/L (20-31); CHLORIDE LEVEL 102 MMOL/L (98-107); CREATININE FOR GFR 1.18 MG/DL (0.55-1.30); GLOMERULAR FILTRATION RATE 50.0 (>45); POTASSIUM SERUM 4.3 MMOL/L (3.5-5.1); SODIUM LEVEL 139 MMOL/L (136-145)
[2025-05-06] MEDS ORDERED: LAMO100T3 PO (18:36)
[2025-05-06] MEDS ORDERED: TRAZ-252 PO (18:36)
[2025-05-06 19:00] VITALS: BP 124/88; TEMP 97.9; O2SAT 99
[2025-05-06 19:12] LABS: AMPHETAMINES LEVEL URINE NEGATIVE (NEGATIVE); BARBITURATES URINE NEGATIVE (NEGATIVE); COCAINE METABOLITE URINE NEGATIVE (NEGATIVE); METHADONE URINE NEGATIVE (NEGATIVE); OPIATES URINE NEGATIVE (NEGATIVE); PHENCYCLIDINE URINE NEGATIVE (NEGATIVE)
[2025-05-06 19:17] LABS: BENZODIAZEPINES URINE POSITIVE (NEGATIVE); CANNABINOIDS URINE POSITIVE (NEGATIVE)
== END 2025-05-06 19:03 | disposition home or self-care (01) ==
LOC: M ED 14:53
DX: F43.0 Acute stress reaction (principal); F32.A Depression, unspecified; Z79.899 Other long term (current) drug therapy; Z88.8 Allergy status to other drugs, medicaments and biological substances